=== PATIENT | female | born 1990 | race Caucasian/White ===

== ENCOUNTER → 2020-05-23 10:02 | Outpatient (CLI) | payer OTHER, MEDICAID, SELFPAY ==
[2020-05-23] MEDS: COVID-19 VACC #1, MRNA(MOD) 100 MCG/0.5 ML VIAL IM (10:14)
== END ==
PROVIDERS: Visit Provider Internal Medicine
DX: Z23 Encounter for immunization (principal)
CPT/HCPCS: 0011A; 91301

== ENCOUNTER → 2020-06-20 10:02 | Outpatient (CLI) | payer OTHER, MEDICAID, SELFPAY ==
[2020-06-20] MEDS: COVID-19 VACC #2, MRNA(MOD) 100 MCG/0.5 ML VIAL IM (10:13)
== END ==
PROVIDERS: Visit Provider Internal Medicine
DX: Z23 Encounter for immunization (principal)
CPT/HCPCS: 0012A; 91301

== ENCOUNTER 2020-11-21 16:00 | Outpatient (RCR) | payer OTHER, MEDICAID, SELFPAY ==
--- NOTE | 2020-09-19 13:45 | PT.OIE ---
Current Diagnoses Hypermobility syndrome (09/19/20) Abnormal posture (09/19/20) Sprain of ligaments of lumbar spine, initial encounter (09/19/20) Past Medical History (Last Updated 07/25/20 @ 11:59 by Riki Fish PA-C) Acute low back pain Visit Care Team Role Provider Type Sindhu Gonzalez PA-C Attending Provider Non-Staff Primary Care Provider Referring Provider Specialty: Medical Address: [address] [place] [address] [address], [place], [address] Email: Physical Therapy Initial Evaluation PT-OP-A Visit Information Start: 09/19/20 08:57 Freq: Status: Active Protocol: Document 09/19/20 13:45 AW (Rec: 09/19/20 17:55 AW [email or web address]) Out-Patient Physical Therapy Visit Information Visit Information Visit Type Initial Evaluation Visit Start Time 13:00 Visit Stop Time 13:45 Total Visit Minutes 45 Visit Number 1 Number of TENANT SELECTOR Visits 0 Evaluation Information Evaluation Date 09/19/20 Precautions Precautions underlying hypermobility PT-OP-B Current Condition Start: 09/19/20 08:57 Freq: Status: Active Protocol: Document 09/19/20 13:45 AW (Rec: 09/19/20 08:58 AW [email or web address]) Current Condition History of Current Condition Onset Date chronic but worse since July 2020 Current Complaints low back pain; RLE pain History of Current Condition Pt describes chronic low grade back pain since high school. Within a year of her first spontaneous vaginal delivery, she started having strong spasms in her mid low back but they were amenable to stretching and rest. Without trauma or any known precipitating injury, pt experienced onset of acute back pain in July. She is now having a fiery stabbing sensation in her right buttock and posterolateral thigh after periods of inactivity and with changes in position. The pain turns into a strong ache in her low back after walking for a little bit.. Prior Treatments and Tests - X-ray lumbar spine at [facility] in 2018: lumbar levoscoliosis at L2 and early DDD L5-S1. Trace L5-S1 disc narrowing. - 2009 lap band. Removed April 2019. - Abdominal surgery (gastric bypass) December 2019. Future Testing and Treatments Planned None identified Developmental History Developmental History 7. 3.5, 2.5 yo at home. Treatment Goals Patient/Caregiver Goals Pt hopes to be able to manage her pain so she can do more things, walk with less of a limp, get down to floor to play with her kids, ease transitions. 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 Current Functional Impairments (Reported) Functional Limitations- ADL's Difficulty with LB dressing Functional Limitations- Work/School Limited sitting tolerance. 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 (10-15 min before she needs to shift her weight, gets up to walk hourly). Personal Factors Other Personal Factors That May Effect (-) depression Therapy/Recovery (+) strong motivation PT-OP-C Subjective Start: 09/19/20 08:57 Freq: Status: Active Protocol: Document 09/19/20 13:45 AW (Rec: 09/19/20 17:55 AW [email or web address]) Patient Questionnaires Oswestry Low Back Index Oswestry Score 40 Oswestry Impairment 40 to 59% Impaired (Score 40- 59) OP-PT Pain Assessment Pain Assessment Grid Paper Pain Assessment Grid Completed Yes: Scanned to EMR PT-OP-D Balance Start: 09/19/20 08:57 Freq: Status: Active Protocol: Document 09/19/20 13:45 AW (Rec: 09/19/20 17:59 AW [email or web address]) OP-PT Balance Assessment Sitting Balance Static Sitting Balance Ability Normal Dynamic Sitting Balance Ability Normal Standing Balance Static Standing Balance Ability Good Dynamic Standing Balance Ability Good Balance Tests Single Limb Standing Single Limb- Right 15 seconds but with instability Single Limb- Left 15 seconds - stable compared with right Frankel Fall Scale Copyright Permission PT-OP-F Manual Assessment Start: 09/19/20 08:57 Freq: Status: Active Protocol: Document 09/19/20 13:45 AW (Rec: 09/19/20 17:59 AW [email or web address]) Manual Assessments Soft Tissue Assessment Soft Tissue Mobility Assessment Moderately dense deep external rotators/glutes right side Joint Mobility Assessment Joint Mobility Assessment Hypermobile lumbar and lower thoracic PA's. Pt states she used to be able to reach the floor with flat hands, has hypermobile joints in her hands, and used to be able to touch the ground with her nose in seated butterfly pose. PT-OP-G Mobility & Gait Start: 09/19/20 08:57 Freq: Status: Active Protocol: Document 09/19/20 13:45 AW (Rec: 09/19/20 17:59 AW [email or web address]) OP Gait Assessment Comments Gait Comments Pt ambulates with limited upper spine excursion, positive bilateral Trendelenberg sign, poor pelvic stability. PT-OP-H Neuro Start: 09/19/20 08:57 Freq: Status: Active Protocol: Document 09/19/20 13:45 AW (Rec: 09/19/20 18:02 AW [email or web address]) Sensation Evaluation Gross Sensation Gross Sensation Right LE Impaired Comments Summary Comments Globally impaired light touch sensation in RLE. No identifiable pattern. Pressure and temperature sensation are intact Deep Tendon Reflex & Clonus Assessment Deep Tendon Reflex Bilateral Achilles Deep Tendon Reflex 0 Absent Bilateral Patellar Deep Tendon Reflex 1+ Diminished PT-OP-J Posture/Palpation/Skin Start: 09/19/20 08:57 Freq: Status: Active Protocol: Document 09/19/20 13:45 AW (Rec: 09/19/20 18:02 AW [email or web address]) Posture Evaluation Position Standing L-Spine Posture Fixed Scoliosis on (L),Shifted Right Shoulder Posture (L) Rounded,(R) Rounded Pelvis Posture Anteriorly Tilted Weight Distribution Decreased Wt.Bear on (R) Knee Posture (L) Genu Recurvatum,(R) Genu Recurvatum PT-OP-K Range of Motion Start: 09/19/20 08:57 Freq: Status: Active Protocol: Document 09/19/20 13:45 AW (Rec: 09/19/20 18:12 AW [email or web address]) Lumbar Spine Range of Motion Lumbar Spine Active Testing Position Standing Flexion 15 Extension 5 Comments Pt is able to flex to 15 degrees without pain and to 25 degrees with pain. Extension is severely limited. Sidebending bilaterally she is able to reach fingertips to knee joint but with pain on the right side. Rotation is WNL and pain free. Hip Goniometric Range of Motion Hip bilateral Hip ROM WFL Yes Testing Position Supine Hip ROM Limitations Hip ROM Limitations Soft Tissue Tightness,Pain Comments Flexion in supine is limited by habitus. R internal rotation limited by pain and soft tissue tightness. Knee Goniometric Range of Motion Knee bilateral Knee ROM WFL Yes Patient Position Supine Comments Pt has slight genu recurvatum bilaterally. PT-OP-L Special Tests Start: 09/19/20 08:57 Freq: Status: Active Protocol: Document 09/19/20 13:45 AW (Rec: 09/19/20 18:12 AW [email or web address]) Special Tests Lumbar Spine Special Tests Slump Test Results positive on right side with least provocative positioning PT-OP-M Strength Start: 09/19/20 08:57 Freq: Status: Active Protocol: Document 09/19/20 13:45 AW (Rec: 09/19/20 18:12 AW [email or web address]) Trunk Strength Trunk Manual Muscle Testing Core Stabilization Poor awareness of core stabilization. Active SLR improved with compression through pelvis Hip Strength Hip Manual Muscle Testing Left Flexion (L2) 4+ Good+ Extension (S1) 4 Good Abduction 4- Good- External Rotation 4+ Good+ Internal Rotation 4+ Good+ Right Flexion (L2) 4 Good Extension (S1) 4 Good Abduction 4- Good- External Rotation 4+ Good+ Internal Rotation 4 Good Knee Strength Knee Manual Muscle Testing bilateral Flexion (S2) 5 Normal Extension (L3) 4+ Good+ PT-OP-Q Treatments Start: 09/19/20 08:57 Freq: Status: Active Protocol: Document 09/19/20 13:45 AW (Rec: 09/19/20 18:13 AW [email or web address]) Therapeutic Exercises Supine Exercises TrA awareness Comments cued JASMIN; HEP sciatic nerve glide Supine Exercise Name sciatic nerve glide Side right Comments with active ankle pump; HEP piriformis stretch Supine Exercise Name piriformis stretch Side right Reps/Minutes 30 SH x 4 Comments HEP PT-OP-T Assessment and Plan Start: 09/19/20 08:57 Freq: Status: Active Protocol: Document 09/19/20 13:45 AW (Rec: 09/20/20 09:00 AW [email or web address]) Physical Therapy Assessment Rehab Potential Rehabilitation Potential Good Evaluation Complexity Number of Personal Factors/Comorbidities 1-2 Number of Body Systems Impaired 1-2 Clinical Presentation at Evaluation Stable Impairments Impairments Activity Tolerance,Balance, Functional Activities, Functional Mobility,Gait,Pain, Posture,ROM,Sensation,Soft Tissue Mobility,Strength Other Concerns Barriers to Rehabilitation - depression Goals Three Impairment LESTER Label Operator Goal (LTG) Pt will improve LESTER score from 40 to 20% or less disability for improved daily function LTG Duration 10 weeks - 11/27/20 Two Impairment lumbar ROM Short Term Goal (STG) Pt will improve active lumbar flexion from 15 degrees to 30 degrees without increase in baseline pain. STG Duration 4 weeks - 09/16/20 Label Operator Goal (LTG) Pt will improve active lumbar flexion from 15 degrees to 50 degrees without increase in baseline pain for improved ability to participate in play activities with her children. LTG Duration 10 weeks - 11/27/20 One Impairment lacks HEP Short Term Goal (STG) Pt will be educated in implications of posture for pain management STG Duration 4 weeks - 09/16/20 Mcfp Goal (LTG) Pt will be independent with HEP for support of therapy services provided in clinic LTG Duration 10 weeks - 11/27/20 Assessment Summary Assessment Nuha is a 30 yo woman seen in outpatient physical therapy with complaints of right lower extremity pain and low back pain. She reports history of chronic low back pain but her leg pain is new since July. Underlying hypomobility is likely predisposing. Pt identifies no precipitating injury. She presents with bilateral lower extremity weakness, postural abnormalities including exaggerated anterior pelvic tilt, and generalized hypermobility which are perpetuating her problems. Pt is expected to benefit from skilled physical therapy directed at correcting these impairments for improved lumbar stability with the goal of normalizing her gait pattern and improving her daily function. Physical Therapy Plan Frequency and Duration Frequency of Treatment 1-2x/week Duration of Treatment 10 weeks Plan of Care Start Date 09/19/20 Plan of Care End Date 11/27/20 Therapeutic Interventions Therapeutic Interventions Balance Training,Gait Training ,Home Exercise Program,Joint Mobilizations,Manual Therapy, Neuromuscular Re-education, Patient/Caregiver Education, Self-Care/Home Management, Sensory Integration,Soft Tissue Mobilization,Taping, Therapeutic Activities, Therapeutic Exercises Modalities Cold Pack/Ice Massage,Electric Stimulation,Hot Packs Next Visit Focus/Plan Next Note Type Treatment Note Next Visit Plan review initial HEP; initiate core stab
--- NOTE | 2020-09-19 13:45 | PT.OPPOC ---
Physical, Occupational & Speech Therapy At [facility] Current Diagnoses Hypermobility syndrome (09/19/20) Abnormal posture (09/19/20) Sprain of ligaments of lumbar spine, initial encounter (09/19/20) Visit Care Team Role Provider Type Sindhu Gonzalez PA-C Attending Provider Non-Staff Primary Care Provider Referring Provider Specialty: Medical Address: [address] [place] [address] [address], [place], [address] Email: Plan Of Care PT-OP-T Assessment and Plan Start: 09/19/20 08:57 Freq: Status: Active Protocol: Document 09/19/20 13:45 AW (Rec: 09/20/20 09:00 AW [email or web address]) Physical Therapy Assessment Rehab Potential Rehabilitation Potential Good Evaluation Complexity Number of Personal Factors/Comorbidities 1-2 Number of Body Systems Impaired 1-2 Clinical Presentation at Evaluation Stable Impairments Impairments Activity Tolerance,Balance, Functional Activities, Functional Mobility,Gait,Pain, Posture,ROM,Sensation,Soft Tissue Mobility,Strength Other Concerns Barriers to Rehabilitation - depression Goals Three Impairment LESTER Mixed Livestock Farmer Goal (LTG) Pt will improve LESTER score from 40 to 20% or less disability for improved daily function LTG Duration 10 weeks - 11/27/20 Two Impairment lumbar ROM Short Term Goal (STG) Pt will improve active lumbar flexion from 15 degrees to 30 degrees without increase in baseline pain. STG Duration 4 weeks - 09/16/20 Mixed Livestock Farmer Goal (LTG) Pt will improve active lumbar flexion from 15 degrees to 50 degrees without increase in baseline pain for improved ability to participate in play activities with her children. LTG Duration 10 weeks - 11/27/20 One Impairment lacks HEP Short Term Goal (STG) Pt will be educated in implications of posture for pain management STG Duration 4 weeks - 09/16/20 Mixed Livestock Farmer Goal (LTG) Pt will be independent with HEP for support of therapy services provided in clinic LTG Duration 10 weeks - 11/27/20 Assessment Summary Assessment Nuha is a 30 yo woman seen in outpatient physical therapy with complaints of right lower extremity pain and low back pain. She reports history of chronic low back pain but her leg pain is new since July. Underlying hypomobility is likely predisposing. Pt identifies no precipitating injury. She presents with bilateral lower extremity weakness, postural abnormalities including exaggerated anterior pelvic tilt, and generalized hypermobility which are perpetuating her problems. Pt is expected to benefit from skilled physical therapy directed at correcting these impairments for improved lumbar stability with the goal of normalizing her gait pattern and improving her daily function. Physical Therapy Plan Frequency and Duration Frequency of Treatment 1-2x/week Duration of Treatment 10 weeks Plan of Care Start Date 09/19/20 Plan of Care End Date 11/27/20 Therapeutic Interventions Therapeutic Interventions Balance Training,Gait Training ,Home Exercise Program,Joint Mobilizations,Manual Therapy, Neuromuscular Re-education, Patient/Caregiver Education, Self-Care/Home Management, Sensory Integration,Soft Tissue Mobilization,Taping, Therapeutic Activities, Therapeutic Exercises Modalities Cold Pack/Ice Massage,Electric Stimulation,Hot Packs Next Visit Focus/Plan Next Note Type Treatment Note Next Visit Plan review initial HEP; initiate core stab Plan of Care Dates Plan of Care Start Date 09/19/20 Plan of Care End Date 11/27/20 Electronically Signed by: Su June PT 09/20/20 0900 Please Sign and Return: I have reviewed this Plan of Care and certify that the skilled therapy services above are required to meet the patient?s needs. Physician Signature Date Printed Name and Credentials Clinical Instructor Signature Printed Name and Credentials
--- NOTE | 2020-09-20 12:19 | PT.OTN ---
Current Diagnoses Hypermobility syndrome (09/20/20) Abnormal posture (09/20/20) Sprain of ligaments of lumbar spine, initial encounter (09/20/20) Physical Therapy Treatment Note PT-OP-A Visit Information Start: 09/19/20 08:57 Freq: Status: Active Protocol: Document 09/20/20 10:30 AW (Rec: 09/20/20 10:31 AW [id number]) Out-Patient Physical Therapy Visit Information Visit Information Visit Type Treatment Note Visit Start Time 09:50 Visit Stop Time 10:30 Total Visit Minutes 40 Visit Number 2 Number of SUBSTANCE ABUSE RN Visits 0 Precautions Precautions underlying hypermobility PT-OP-B Current Condition Start: 09/19/20 08:57 Freq: Status: Active Protocol: Document 09/19/20 13:45 AW (Rec: 09/19/20 08:58 AW [email or web address]) Current Condition History of Current Condition Onset Date chronic but worse since July 2020 Current Complaints low back pain; RLE pain History of Current Condition Pt describes chronic low grade back pain since high school. Within a year of her first spontaneous vaginal delivery, she started having strong spasms in her mid low back but they were amenable to stretching and rest. Without trauma or any known precipitating injury, pt experienced onset of acute back pain in July. She is now having a fiery stabbing sensation in her right buttock and posterolateral thigh after periods of inactivity and with changes in position. The pain turns into a strong ache in her low back after walking for a little bit.. Prior Treatments and Tests - X-ray lumbar spine at [facility] in 2018: lumbar levoscoliosis at L2 and early DDD L5-S1. Trace L5-S1 disc narrowing. - 2009 lap band. Removed April 2019. - Abdominal surgery (gastric bypass) December 2019. Future Testing and Treatments Planned None identified Developmental History Developmental History [age].5[age] 2.5 yo at home. Treatment Goals Patient/Caregiver Goals Pt hopes to be able to manage her pain so she can do more things, walk with less of a limp, get down to floor to play with her kids, ease transitions. 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 Current Functional Impairments (Reported) Functional Limitations- ADL's Difficulty with LB dressing Functional Limitations- Work/School Limited sitting tolerance. 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 (10-15 min before she needs to shift her weight, gets up to walk hourly). Personal Factors Other Personal Factors That May Effect (-) depression Therapy/Recovery (+) strong motivation PT-OP-C Subjective Start: 09/19/20 08:57 Freq: Status: Active Protocol: Document 09/20/20 10:30 AW (Rec: 09/20/20 10:31 AW [id number]) OP-PT Subjective Patient Comments Patient Comments Stretches went well at home and my leg felt better last night but I'm still really limping this morning. PT-OP-D Balance Start: 09/19/20 08:57 Freq: Status: Active Protocol: Document 09/19/20 13:45 AW (Rec: 09/19/20 17:59 AW [email or web address]) OP-PT Balance Assessment Sitting Balance Static Sitting Balance Ability Normal Dynamic Sitting Balance Ability Normal Standing Balance Static Standing Balance Ability Good Dynamic Standing Balance Ability Good Balance Tests Single Limb Standing Single Limb- Right 15 seconds but with instability Single Limb- Left 15 seconds - stable compared with right Frankel Fall Scale Copyright Permission PT-OP-F Manual Assessment Start: 09/19/20 08:57 Freq: Status: Active Protocol: Document 09/19/20 13:45 AW (Rec: 09/19/20 17:59 AW [email or web address]) Manual Assessments Soft Tissue Assessment Soft Tissue Mobility Assessment Moderately dense deep external rotators/glutes right side Joint Mobility Assessment Joint Mobility Assessment Hypermobile lumbar and lower thoracic PA's. Pt states she used to be able to reach the floor with flat hands, has hypermobile joints in her hands, and used to be able to touch the ground with her nose in seated butterfly pose. PT-OP-G Mobility & Gait Start: 09/19/20 08:57 Freq: Status: Active Protocol: Document 09/19/20 13:45 AW (Rec: 09/19/20 17:59 AW [email or web address]) OP Gait Assessment Comments Gait Comments Pt ambulates with limited upper spine excursion, positive bilateral Trendelenberg sign, poor pelvic stability. PT-OP-H Neuro Start: 09/19/20 08:57 Freq: Status: Active Protocol: Document 09/19/20 13:45 AW (Rec: 09/19/20 18:02 AW [email or web address]) Sensation Evaluation Gross Sensation Gross Sensation Right LE Impaired Comments Summary Comments Globally impaired light touch sensation in RLE. No identifiable pattern. Pressure and temperature sensation are intact Deep Tendon Reflex & Clonus Assessment Deep Tendon Reflex Bilateral Achilles Deep Tendon Reflex 0 Absent Bilateral Patellar Deep Tendon Reflex 1+ Diminished PT-OP-J Posture/Palpation/Skin Start: 09/19/20 08:57 Freq: Status: Active Protocol: Document 09/19/20 13:45 AW (Rec: 09/19/20 18:02 AW [email or web address]) Posture Evaluation Position Standing L-Spine Posture Fixed Scoliosis on (L),Shifted Right Shoulder Posture (L) Rounded,(R) Rounded Pelvis Posture Anteriorly Tilted Weight Distribution Decreased Wt.Bear on (R) Knee Posture (L) Genu Recurvatum,(R) Genu Recurvatum PT-OP-K Range of Motion Start: 09/19/20 08:57 Freq: Status: Active Protocol: Document 09/19/20 13:45 AW (Rec: 09/19/20 18:12 AW [email or web address]) Lumbar Spine Range of Motion Lumbar Spine Active Testing Position Standing Flexion 15 Extension 5 Comments Pt is able to flex to 15 degrees without pain and to 25 degrees with pain. Extension is severely limited. Sidebending bilaterally she is able to reach fingertips to knee joint but with pain on the right side. Rotation is WNL and pain free. Hip Goniometric Range of Motion Hip bilateral Hip ROM WFL Yes Testing Position Supine Hip ROM Limitations Hip ROM Limitations Soft Tissue Tightness,Pain Comments Flexion in supine is limited by habitus. R internal rotation limited by pain and soft tissue tightness. Knee Goniometric Range of Motion Knee bilateral Knee ROM WFL Yes Patient Position Supine Comments Pt has slight genu recurvatum bilaterally. PT-OP-L Special Tests Start: 09/19/20 08:57 Freq: Status: Active Protocol: Document 09/19/20 13:45 AW (Rec: 09/19/20 18:12 AW [email or web address]) Special Tests Lumbar Spine Special Tests Slump Test Results positive on right side with least provocative positioning PT-OP-M Strength Start: 09/19/20 08:57 Freq: Status: Active Protocol: Document 09/19/20 13:45 AW (Rec: 09/19/20 18:12 AW [email or web address]) Trunk Strength Trunk Manual Muscle Testing Core Stabilization Poor awareness of core stabilization. Active SLR improved with compression through pelvis Hip Strength Hip Manual Muscle Testing Left Flexion (L2) 4+ Good+ Extension (S1) 4 Good Abduction 4- Good- External Rotation 4+ Good+ Internal Rotation 4+ Good+ Right Flexion (L2) 4 Good Extension (S1) 4 Good Abduction 4- Good- External Rotation 4+ Good+ Internal Rotation 4 Good Knee Strength Knee Manual Muscle Testing bilateral Flexion (S2) 5 Normal Extension (L3) 4+ Good+ PT-OP-Q Treatments Start: 09/19/20 08:57 Freq: Status: Active Protocol: Document 09/20/20 10:30 AW (Rec: 09/20/20 10:31 AW [id number]) Therapeutic Exercises Supine Exercises TrA awareness Supine Exercise Name bkfo, single leg march, double leg march Side bilateral Comments cued JASMIN; HEP sciatic nerve glide Supine Exercise Name sciatic nerve glide Side right Comments with active ankle pump; added cervical rotation to increase tension piriformis stretch Supine Exercise Name piriformis stretch Side right Reps/Minutes 30 SH x 4 Comments HEP Sidelying Exercises clamshell Sidelying Exercise Name clamshell Side bilateral Resistance AROM Reps/Minutes 12 x 2 Comments HEP PT-OP-T Assessment and Plan Start: 09/19/20 08:57 Freq: Status: Active Protocol: Document 09/20/20 10:30 AW (Rec: 09/20/20 12:18 AW [email or web address]) Physical Therapy Assessment Goals Three Impairment LESTER Facility Maintenance Helper Goal (LTG) Pt will improve LESTER score from 40 to 20% or less disability for improved daily function LTG Duration 10 weeks - 11/27/20 Two Impairment lumbar ROM Short Term Goal (STG) Pt will improve active lumbar flexion from 15 degrees to 30 degrees without increase in baseline pain. STG Duration 4 weeks - 09/16/20 Shelter Goal (LTG) Pt will improve active lumbar flexion from 15 degrees to 50 degrees without increase in baseline pain for improved ability to participate in play activities with her children. LTG Duration 10 weeks - 11/27/20 One Impairment lacks HEP Short Term Goal (STG) Pt will be educated in implications of posture for pain management STG Duration 4 weeks - 09/16/20 Facility Maintenance Helper Goal (LTG) Pt will be independent with HEP for support of therapy services provided in clinic LTG Duration 10 weeks - 11/27/20 Assessment Summary Assessment Nuha tolerated supine core stabilzation exercises today and is demonstrating good independent performance of initial HEP. PT will continue to monitor for complications related to hypermobility. Physical Therapy Plan Frequency and Duration Frequency of Treatment 1-2x/week Duration of Treatment 10 weeks Plan of Care Start Date 09/19/20 Plan of Care End Date 11/27/20 Therapeutic Interventions Therapeutic Interventions Balance Training,Gait Training ,Home Exercise Program,Joint Mobilizations,Manual Therapy, Neuromuscular Re-education, Patient/Caregiver Education, Self-Care/Home Management, Sensory Integration,Soft Tissue Mobilization,Taping, Therapeutic Activities, Therapeutic Exercises Modalities Cold Pack/Ice Massage,Electric Stimulation,Hot Packs Next Visit Focus/Plan Next Note Type Treatment Note Next Visit Plan review and progress core stab; consider pre/gait training to promote awareness of glute facilitation
--- NOTE | 2020-09-25 16:24 | PT.OTN ---
Current Diagnoses Hypermobility syndrome (09/25/20) Abnormal posture (09/25/20) Sprain of ligaments of lumbar spine, initial encounter (09/25/20) Physical Therapy Treatment Note PT-OP-A Visit Information Start: 09/19/20 08:57 Freq: Status: Active Protocol: Document 09/25/20 16:00 AW (Rec: 09/25/20 16:24 AW [email or web address]) Out-Patient Physical Therapy Visit Information Visit Information Visit Type Treatment Note Visit Start Time 15:15 Visit Stop Time 16:00 Total Visit Minutes 45 Visit Number 3 Number of ECONOMETRICS PROFESSOR Visits 0 Evaluation Information Evaluation Date 09/19/20 Precautions Precautions underlying hypermobility PT-OP-B Current Condition Start: 09/19/20 08:57 Freq: Status: Active Protocol: Document 09/19/20 13:45 AW (Rec: 09/19/20 08:58 AW [email or web address]) Current Condition History of Current Condition Onset Date chronic but worse since July 2020 Current Complaints low back pain; RLE pain History of Current Condition Pt describes chronic low grade back pain since high school. Within a year of her first spontaneous vaginal delivery, she started having strong spasms in her mid low back but they were amenable to stretching and rest. Without trauma or any known precipitating injury, pt experienced onset of acute back pain in July. She is now having a fiery stabbing sensation in her right buttock and posterolateral thigh after periods of inactivity and with changes in position. The pain turns into a strong ache in her low back after walking for a little bit.. Prior Treatments and Tests - X-ray lumbar spine at [facility] in 2018: lumbar levoscoliosis at L2 and early DDD L5-S1. Trace L5-S1 disc narrowing. - 2009 lap band. Removed April 2019. - Abdominal surgery (gastric bypass) December 2019. Future Testing and Treatments Planned None identified Developmental History Developmental History 7. 3.5[age] 2.5 yo at home. Treatment Goals Patient/Caregiver Goals Pt hopes to be able to manage her pain so she can do more things, walk with less of a limp, get down to floor to play with her kids, ease transitions. 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 Current Functional Impairments (Reported) Functional Limitations- ADL's Difficulty with LB dressing Functional Limitations- Work/School Limited sitting tolerance. 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 (10-15 min before she needs to shift her weight, gets up to walk hourly). Personal Factors Other Personal Factors That May Effect (-) depression Therapy/Recovery (+) strong motivation PT-OP-C Subjective Start: 09/19/20 08:57 Freq: Status: Active Protocol: Document 09/25/20 16:00 AW (Rec: 09/25/20 16:24 AW [email or web address]) OP-PT Subjective Patient Comments Patient Comments Pt reports feeling better last weekend with pain improved from 08/25 to 05/26. However, yesterday, she started to feel intense aching pain and numbness in her posterior thigh and lateral leg. She had a few instances of feeling unstable and had to brace herself with her arms to maintain standing balance. She denies falling. PT-OP-D Balance Start: 09/19/20 08:57 Freq: Status: Active Protocol: Document 09/19/20 13:45 AW (Rec: 09/19/20 17:59 AW [email or web address]) OP-PT Balance Assessment Sitting Balance Static Sitting Balance Ability Normal Dynamic Sitting Balance Ability Normal Standing Balance Static Standing Balance Ability Good Dynamic Standing Balance Ability Good Balance Tests Single Limb Standing Single Limb- Right 15 seconds but with instability Single Limb- Left 15 seconds - stable compared with right Frankel Fall Scale Copyright Permission PT-OP-F Manual Assessment Start: 09/19/20 08:57 Freq: Status: Active Protocol: Document 09/19/20 13:45 AW (Rec: 09/19/20 17:59 AW [email or web address]) Manual Assessments Soft Tissue Assessment Soft Tissue Mobility Assessment Moderately dense deep external rotators/glutes right side Joint Mobility Assessment Joint Mobility Assessment Hypermobile lumbar and lower thoracic PA's. Pt states she used to be able to reach the floor with flat hands, has hypermobile joints in her hands, and used to be able to touch the ground with her nose in seated butterfly pose. PT-OP-G Mobility & Gait Start: 09/19/20 08:57 Freq: Status: Active Protocol: Document 09/19/20 13:45 AW (Rec: 09/19/20 17:59 AW [email or web address]) OP Gait Assessment Comments Gait Comments Pt ambulates with limited upper spine excursion, positive bilateral Trendelenberg sign, poor pelvic stability. PT-OP-H Neuro Start: 09/19/20 08:57 Freq: Status: Active Protocol: Document 09/19/20 13:45 AW (Rec: 09/19/20 18:02 AW [email or web address]) Sensation Evaluation Gross Sensation Gross Sensation Right LE Impaired Comments Summary Comments Globally impaired light touch sensation in RLE. No identifiable pattern. Pressure and temperature sensation are intact Deep Tendon Reflex & Clonus Assessment Deep Tendon Reflex Bilateral Achilles Deep Tendon Reflex 0 Absent Bilateral Patellar Deep Tendon Reflex 1+ Diminished PT-OP-J Posture/Palpation/Skin Start: 09/19/20 08:57 Freq: Status: Active Protocol: Document 09/19/20 13:45 AW (Rec: 09/19/20 18:02 AW [email or web address]) Posture Evaluation Position Standing L-Spine Posture Fixed Scoliosis on (L),Shifted Right Shoulder Posture (L) Rounded,(R) Rounded Pelvis Posture Anteriorly Tilted Weight Distribution Decreased Wt.Bear on (R) Knee Posture (L) Genu Recurvatum,(R) Genu Recurvatum PT-OP-K Range of Motion Start: 09/19/20 08:57 Freq: Status: Active Protocol: Document 09/19/20 13:45 AW (Rec: 09/19/20 18:12 AW [email or web address]) Lumbar Spine Range of Motion Lumbar Spine Active Testing Position Standing Flexion 15 Extension 5 Comments Pt is able to flex to 15 degrees without pain and to 25 degrees with pain. Extension is severely limited. Sidebending bilaterally she is able to reach fingertips to knee joint but with pain on the right side. Rotation is WNL and pain free. Hip Goniometric Range of Motion Hip bilateral Hip ROM WFL Yes Testing Position Supine Hip ROM Limitations Hip ROM Limitations Soft Tissue Tightness,Pain Comments Flexion in supine is limited by habitus. R internal rotation limited by pain and soft tissue tightness. Knee Goniometric Range of Motion Knee bilateral Knee ROM WFL Yes Patient Position Supine Comments Pt has slight genu recurvatum bilaterally. PT-OP-L Special Tests Start: 09/19/20 08:57 Freq: Status: Active Protocol: Document 09/19/20 13:45 AW (Rec: 09/19/20 18:12 AW [email or web address]) Special Tests Lumbar Spine Special Tests Slump Test Results positive on right side with least provocative positioning PT-OP-M Strength Start: 09/19/20 08:57 Freq: Status: Active Protocol: Document 09/19/20 13:45 AW (Rec: 09/19/20 18:12 AW [email or web address]) Trunk Strength Trunk Manual Muscle Testing Core Stabilization Poor awareness of core stabilization. Active SLR improved with compression through pelvis Hip Strength Hip Manual Muscle Testing Left Flexion (L2) 4+ Good+ Extension (S1) 4 Good Abduction 4- Good- External Rotation 4+ Good+ Internal Rotation 4+ Good+ Right Flexion (L2) 4 Good Extension (S1) 4 Good Abduction 4- Good- External Rotation 4+ Good+ Internal Rotation 4 Good Knee Strength Knee Manual Muscle Testing bilateral Flexion (S2) 5 Normal Extension (L3) 4+ Good+ PT-OP-Q Treatments Start: 09/19/20 08:57 Freq: Status: Active Protocol: Document 09/25/20 16:00 AW (Rec: 09/25/20 16:24 AW [email or web address]) Therapeutic Exercises Supine Exercises LTR Supine Exercise Name LTR double KTC Supine Exercise Name double KTC Sidelying Exercises SL facet gap Sidelying Exercise Name SL facet gap Resistance R leg fwd off table, R arm reached back Comments position of comfort for HEP Sitting Exercises PPT Sitting Exercise Name pelvic tilt - anterior and posterior Reps/Minutes x5 Comments cued pt to find pelvic neutral in sitting fwd flexion stretch Comments produces post thigh/lateral leg pain; dc'ed Gait Training Gait Activity 1 Description glute facilitation level surface Surface carpet, tile Distance/Duration 8 min Treatment Focus glute facilitation to improve opp LE swing phase Comments glute facilitation to improve opp LE swing phase, normalize stance time Manual Therapy Treatment Soft Tissue Mobilization lumbar paraspinals, glutes Body Location lumbar paraspinals, glutes Mobilization Type Rolling,Strumming,Sustained Pressure Intensity/Depth Moderate Body Position Sidelying Comments tone in upper lumbar reduced after manual Joint Mobilizations lumbar facets Joint lumbar facets Direction gap Body Position Sidelying Reps/Duration 1 min oscillation x 5 Comments grade II and III Manual Traction Lumbar Body Position Hooklying Reps/Duration 1 min x 5 Comments with strap Self-Care/Home Management Treatment Education Patient Education Body Mechanics,Home Exercise Program,Posture PT-OP-T Assessment and Plan Start: 09/19/20 08:57 Freq: Status: Active Protocol: Document 09/25/20 16:00 AW (Rec: 08/10/21 16:24 AW [email or web address]) Physical Therapy Assessment Goals Four Impairment RLE stability Short Term Goal (STG) Pt will improve right single leg stance to 15 seconds with good stability. STG Duration 4 weeks - 09/16/20 Tip Inserter Goal (LTG) Pt will improve right single leg stance from 15 seconds to 25 seconds to demonstrate improved strength and stability LTG Duration 10 weeks - 11/27/20 Three Impairment LESTER Tip Inserter Goal (LTG) Pt will improve LESTER score from 40 to 20% or less disability for improved daily function LTG Duration 10 weeks - 11/27/20 Two Impairment lumbar ROM Short Term Goal (STG) Pt will improve active lumbar flexion from 15 degrees to 30 degrees without increase in baseline pain. STG Duration 4 weeks - 09/16/20 Tip Inserter Goal (LTG) Pt will improve active lumbar flexion from 15 degrees to 50 degrees without increase in baseline pain for improved ability to participate in play activities with her children. LTG Duration 10 weeks - 11/27/20 One Impairment lacks HEP Short Term Goal (STG) Pt will be educated in implications of posture for pain management STG Duration 4 weeks - 09/16/20 Custodial Goal (LTG) Pt will be independent with HEP for support of therapy services provided in clinic LTG Duration 10 weeks - 11/27/20 Assessment Summary Assessment Nuha arrived with acute back pain exacerbation and reports of RLE radiating pain. Treatment focused on manual therapy for lumber spine, gentle ther ex for lumbar flexion and rotation mobility. Pt was encouraged to call her PCP for potential additional imaging if symptoms not improving within one week. Physical Therapy Plan Frequency and Duration Frequency of Treatment 1-2x/week Duration of Treatment 10 weeks Plan of Care Start Date 09/19/20 Plan of Care End Date 11/27/20 Therapeutic Interventions Therapeutic Interventions Balance Training,Gait Training ,Home Exercise Program,Joint Mobilizations,Manual Therapy, Neuromuscular Re-education, Patient/Caregiver Education, Self-Care/Home Management, Sensory Integration,Soft Tissue Mobilization,Taping, Therapeutic Activities, Therapeutic Exercises Modalities Cold Pack/Ice Massage,Electric Stimulation,Hot Packs Next Visit Focus/Plan Next Note Type Treatment Note Next Visit Plan review and progress core stab; consider pre/gait training to promote awareness of glute facilitation
--- NOTE | 2020-09-27 12:18 | PT.OTN ---
Current Diagnoses Hypermobility syndrome (09/27/20) Abnormal posture (09/27/20) Sprain of ligaments of lumbar spine, initial encounter (09/27/20) Physical Therapy Treatment Note PT-OP-A Visit Information Start: 09/19/20 08:57 Freq: Status: Active Protocol: Document 09/27/20 12:02 AW (Rec: 09/27/20 12:06 AW [id number]) Out-Patient Physical Therapy Visit Information Visit Information Visit Type Treatment Note Visit Start Time 11:15 Visit Stop Time 12:02 Total Visit Minutes 47 Visit Number 4 Number of TRAILER STEERER Visits 0 Evaluation Information Evaluation Date 09/19/20 Precautions Precautions underlying hypermobility PT-OP-B Current Condition Start: 09/19/20 08:57 Freq: Status: Active Protocol: Document 09/19/20 13:45 AW (Rec: 09/19/20 08:58 AW [email or web address]) Current Condition History of Current Condition Onset Date chronic but worse since July 2020 Current Complaints low back pain; RLE pain History of Current Condition Pt describes chronic low grade back pain since high school. Within a year of her first spontaneous vaginal delivery, she started having strong spasms in her mid low back but they were amenable to stretching and rest. Without trauma or any known precipitating injury, pt experienced onset of acute back pain in July. She is now having a fiery stabbing sensation in her right buttock and posterolateral thigh after periods of inactivity and with changes in position. The pain turns into a strong ache in her low back after walking for a little bit.. Prior Treatments and Tests - X-ray lumbar spine at [facility] in 2018: lumbar levoscoliosis at L2 and early DDD L5-S1. Trace L5-S1 disc narrowing. - 2009 lap band. Removed April 2019. - Abdominal surgery (gastric bypass) December 2019. Future Testing and Treatments Planned None identified Developmental History Developmental History 7. 3.5[age] 2.5 yo at home. Treatment Goals Patient/Caregiver Goals Pt hopes to be able to manage her pain so she can do more things, walk with less of a limp, get down to floor to play with her kids, ease transitions. 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 Current Functional Impairments (Reported) Functional Limitations- ADL's Difficulty with LB dressing Functional Limitations- Work/School Limited sitting tolerance. 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 (10-15 min before she needs to shift her weight, gets up to walk hourly). Personal Factors Other Personal Factors That May Effect (-) depression Therapy/Recovery (+) strong motivation PT-OP-C Subjective Start: 09/19/20 08:57 Freq: Status: Active Protocol: Document 09/27/20 12:02 AW (Rec: 09/27/20 12:06 AW [id number]) OP-PT Subjective Patient Comments Patient Comments Pt reports buoyancy in bathtub helps with RLE pain. Sitting and standing increase the numbness PT-OP-D Balance Start: 09/19/20 08:57 Freq: Status: Active Protocol: Document 09/19/20 13:45 AW (Rec: 09/19/20 17:59 AW [email or web address]) OP-PT Balance Assessment Sitting Balance Static Sitting Balance Ability Normal Dynamic Sitting Balance Ability Normal Standing Balance Static Standing Balance Ability Good Dynamic Standing Balance Ability Good Balance Tests Single Limb Standing Single Limb- Right 15 seconds but with instability Single Limb- Left 15 seconds - stable compared with right Frankel Fall Scale Copyright Permission PT-OP-F Manual Assessment Start: 09/19/20 08:57 Freq: Status: Active Protocol: Document 09/19/20 13:45 AW (Rec: 09/19/20 17:59 AW [email or web address]) Manual Assessments Soft Tissue Assessment Soft Tissue Mobility Assessment Moderately dense deep external rotators/glutes right side Joint Mobility Assessment Joint Mobility Assessment Hypermobile lumbar and lower thoracic PA's. Pt states she used to be able to reach the floor with flat hands, has hypermobile joints in her hands, and used to be able to touch the ground with her nose in seated butterfly pose. PT-OP-G Mobility & Gait Start: 09/19/20 08:57 Freq: Status: Active Protocol: Document 09/19/20 13:45 AW (Rec: 09/19/20 17:59 AW [email or web address]) OP Gait Assessment Comments Gait Comments Pt ambulates with limited upper spine excursion, positive bilateral Trendelenberg sign, poor pelvic stability. PT-OP-H Neuro Start: 09/19/20 08:57 Freq: Status: Active Protocol: Document 09/19/20 13:45 AW (Rec: 09/19/20 18:02 AW [email or web address]) Sensation Evaluation Gross Sensation Gross Sensation Right LE Impaired Comments Summary Comments Globally impaired light touch sensation in RLE. No identifiable pattern. Pressure and temperature sensation are intact Deep Tendon Reflex & Clonus Assessment Deep Tendon Reflex Bilateral Achilles Deep Tendon Reflex 0 Absent Bilateral Patellar Deep Tendon Reflex 1+ Diminished PT-OP-J Posture/Palpation/Skin Start: 09/19/20 08:57 Freq: Status: Active Protocol: Document 09/19/20 13:45 AW (Rec: 09/19/20 18:02 AW [email or web address]) Posture Evaluation Position Standing L-Spine Posture Fixed Scoliosis on (L),Shifted Right Shoulder Posture (L) Rounded,(R) Rounded Pelvis Posture Anteriorly Tilted Weight Distribution Decreased Wt.Bear on (R) Knee Posture (L) Genu Recurvatum,(R) Genu Recurvatum PT-OP-K Range of Motion Start: 09/19/20 08:57 Freq: Status: Active Protocol: Document 09/19/20 13:45 AW (Rec: 09/19/20 18:12 AW [email or web address]) Lumbar Spine Range of Motion Lumbar Spine Active Testing Position Standing Flexion 15 Extension 5 Comments Pt is able to flex to 15 degrees without pain and to 25 degrees with pain. Extension is severely limited. Sidebending bilaterally she is able to reach fingertips to knee joint but with pain on the right side. Rotation is WNL and pain free. Hip Goniometric Range of Motion Hip bilateral Hip ROM WFL Yes Testing Position Supine Hip ROM Limitations Hip ROM Limitations Soft Tissue Tightness,Pain Comments Flexion in supine is limited by habitus. R internal rotation limited by pain and soft tissue tightness. Knee Goniometric Range of Motion Knee bilateral Knee ROM WFL Yes Patient Position Supine Comments Pt has slight genu recurvatum bilaterally. PT-OP-L Special Tests Start: 09/19/20 08:57 Freq: Status: Active Protocol: Document 09/19/20 13:45 AW (Rec: 09/19/20 18:12 AW [email or web address]) Special Tests Lumbar Spine Special Tests Slump Test Results positive on right side with least provocative positioning PT-OP-M Strength Start: 09/19/20 08:57 Freq: Status: Active Protocol: Document 09/19/20 13:45 AW (Rec: 09/19/20 18:12 AW [email or web address]) Trunk Strength Trunk Manual Muscle Testing Core Stabilization Poor awareness of core stabilization. Active SLR improved with compression through pelvis Hip Strength Hip Manual Muscle Testing Left Flexion (L2) 4+ Good+ Extension (S1) 4 Good Abduction 4- Good- External Rotation 4+ Good+ Internal Rotation 4+ Good+ Right Flexion (L2) 4 Good Extension (S1) 4 Good Abduction 4- Good- External Rotation 4+ Good+ Internal Rotation 4 Good Knee Strength Knee Manual Muscle Testing bilateral Flexion (S2) 5 Normal Extension (L3) 4+ Good+ PT-OP-Q Treatments Start: 09/19/20 08:57 Freq: Status: Active Protocol: Document 09/27/20 12:02 AW (Rec: 09/27/20 12:06 AW [id number]) Gym Equipment Therapeutic Ball pelvic tilt Exercise Details avoid anterior Body Position Sitting Reps/Duration 2 min Comments posterior and lateral; anterior increases burning and numbness RLE Therapeutic Exercises Supine Exercises bridge Supine Exercise Name bridge with TB Side bilateral Reps/Minutes 10 SH x 6 Comments pt reports RLE feels weak, shaky LTR Supine Exercise Name LTR double KTC Supine Exercise Name double KTC sciatic nerve glide Supine Exercise Name sciatic nerve glide Side right Comments with active ankle pump; added cervical rotation to increase tension piriformis stretch Supine Exercise Name piriformis stretch Side right Reps/Minutes 30 SH x 4 Comments HEP Sidelying Exercises SL facet gap Sidelying Exercise Name SL facet gap Resistance R leg fwd off table, R arm reached back Comments position of comfort for HEP Sitting Exercises PPT Sitting Exercise Name pelvic tilt - anterior and posterior Reps/Minutes x5 Comments cued pt to find pelvic neutral in sitting Manual Therapy Treatment Soft Tissue Mobilization lumbar paraspinals, glutes Body Location lumbar paraspinals, glutes Mobilization Type Rolling,Strumming,Sustained Pressure Intensity/Depth Moderate Body Position Sidelying Comments tone in ERs reduced after manual Joint Mobilizations lumbar facets Joint lumbar facets Direction gap Body Position Sidelying Reps/Duration 1 min oscillation x 5 Comments grade II and III Manual Traction Lumbar Body Position Hooklying Reps/Duration 1 min x 5 Comments with strap PT-OP-T Assessment and Plan Start: 09/19/20 08:57 Freq: Status: Active Protocol: Document 09/27/20 12:02 AW (Rec: 09/27/20 12:18 AW [email or web address]) Physical Therapy Assessment Goals Four Impairment RLE stability Short Term Goal (STG) Pt will improve right single leg stance to 15 seconds with good stability. STG Duration 4 weeks - 10/17/20 Inventory Assistant Goal (LTG) Pt will improve right single leg stance from 15 seconds to 25 seconds to demonstrate improved strength and stability LTG Duration 10 weeks - 11/27/20 Three Impairment LESTER Usp Goal (LTG) Pt will improve LESTER score from 40 to 20% or less disability for improved daily function LTG Duration 10 weeks - 11/27/20 Two Impairment lumbar ROM Short Term Goal (STG) Pt will improve active lumbar flexion from 15 degrees to 30 degrees without increase in baseline pain. STG Duration 4 weeks - 10/17/20 Inventory Assistant Goal (LTG) Pt will improve active lumbar flexion from 15 degrees to 50 degrees without increase in baseline pain for improved ability to participate in play activities with her children. LTG Duration 10 weeks - 11/27/20 One Impairment lacks HEP Short Term Goal (STG) Pt will be educated in implications of posture for pain management STG Duration 4 weeks - 10/17/20 Inventory Assistant Goal (LTG) Pt will be independent with HEP for support of therapy services provided in clinic LTG Duration 10 weeks - 11/27/20 Assessment Summary Assessment Nuha continues to experience acute RLE radiating pain which occasionally leaves her feeling weak. Gait is extremely antalgic and slow. She has been able to assume positions of comfort at home when experiencing RLE pain with some relief. Will follow up with pt next week but radiating pain has not been responsive to PT. Pt may need to consider further imaging. Physical Therapy Plan Frequency and Duration Frequency of Treatment 1-2x/week Duration of Treatment 10 weeks Plan of Care Start Date 09/19/20 Plan of Care End Date 11/27/20 Therapeutic Interventions Therapeutic Interventions Balance Training,Gait Training ,Home Exercise Program,Joint Mobilizations,Manual Therapy, Neuromuscular Re-education, Patient/Caregiver Education, Self-Care/Home Management, Sensory Integration,Soft Tissue Mobilization,Taping, Therapeutic Activities, Therapeutic Exercises Modalities Cold Pack/Ice Massage,Electric Stimulation,Hot Packs Next Visit Focus/Plan Next Note Type Treatment Note Next Visit Plan review and progress core stab; manual therapy
--- NOTE | 2020-10-02 17:01 | PT.OTN ---
Current Diagnoses Hypermobility syndrome (10/02/20) Abnormal posture (10/02/20) Sprain of ligaments of lumbar spine, initial encounter (10/02/20) Physical Therapy Treatment Note PT-OP-A Visit Information Start: 09/19/20 08:57 Freq: Status: Active Protocol: Document 10/02/20 15:15 AW (Rec: 10/02/20 15:15 AW [id number]) Out-Patient Physical Therapy Visit Information Visit Information Visit Type Treatment Note Visit Start Time 14:30 Visit Stop Time 15:15 Total Visit Minutes 45 Visit Number 5 Number of HOUSEHOLD CHORES Visits 0 Evaluation Information Evaluation Date 09/19/20 Precautions Precautions underlying hypermobility PT-OP-B Current Condition Start: 09/19/20 08:57 Freq: Status: Active Protocol: Document 09/19/20 13:45 AW (Rec: 09/19/20 08:58 AW [email or web address]) Current Condition History of Current Condition Onset Date chronic but worse since July 2020 Current Complaints low back pain; RLE pain History of Current Condition Pt describes chronic low grade back pain since high school. Within a year of her first spontaneous vaginal delivery, she started having strong spasms in her mid low back but they were amenable to stretching and rest. Without trauma or any known precipitating injury, pt experienced onset of acute back pain in July. She is now having a fiery stabbing sensation in her right buttock and posterolateral thigh after periods of inactivity and with changes in position. The pain turns into a strong ache in her low back after walking for a little bit.. Prior Treatments and Tests - X-ray lumbar spine at [facility] in 2018: lumbar levoscoliosis at L2 and early DDD L5-S1. Trace L5-S1 disc narrowing. - 2009 lap band. Removed April 2019. - Abdominal surgery (gastric bypass) December 2019. Future Testing and Treatments Planned None identified Developmental History Developmental History 7. 3.5[age] 2.5 yo at home. Treatment Goals Patient/Caregiver Goals Pt hopes to be able to manage her pain so she can do more things, walk with less of a limp, get down to floor to play with her kids, ease transitions. 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 Current Functional Impairments (Reported) Functional Limitations- ADL's Difficulty with LB dressing Functional Limitations- Work/School Limited sitting tolerance. 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 (10-15 min before she needs to shift her weight, gets up to walk hourly). Personal Factors Other Personal Factors That May Effect (-) depression Therapy/Recovery (+) strong motivation PT-OP-C Subjective Start: 09/19/20 08:57 Freq: Status: Active Protocol: Document 10/02/20 15:15 AW (Rec: 10/02/20 15:15 AW [id number]) OP-PT Subjective Patient Comments Patient Comments Pt is now having symptoms in both legs. When she walks >10 minutes, she has bilateral shooting pain in her legs. She notices shuffling feet after 30 minutes on her feet. Also reporting tingling sensation in bilateral arms. Not having incontinence. but is having urinary urgency and unable to completely void. Occasional saddle anesthesia more present posteriorly. Pt has an appointment with her PCP tomorrow. Patient Reported Progress Worse PT-OP-D Balance Start: 09/19/20 08:57 Freq: Status: Active Protocol: Document 09/19/20 13:45 AW (Rec: 09/19/20 17:59 AW [email or web address]) OP-PT Balance Assessment Sitting Balance Static Sitting Balance Ability Normal Dynamic Sitting Balance Ability Normal Standing Balance Static Standing Balance Ability Good Dynamic Standing Balance Ability Good Balance Tests Single Limb Standing Single Limb- Right 15 seconds but with instability Single Limb- Left 15 seconds - stable compared with right Frankel Fall Scale Copyright Permission PT-OP-F Manual Assessment Start: 09/19/20 08:57 Freq: Status: Active Protocol: Document 09/19/20 13:45 AW (Rec: 09/19/20 17:59 AW [email or web address]) Manual Assessments Soft Tissue Assessment Soft Tissue Mobility Assessment Moderately dense deep external rotators/glutes right side Joint Mobility Assessment Joint Mobility Assessment Hypermobile lumbar and lower thoracic PA's. Pt states she used to be able to reach the floor with flat hands, has hypermobile joints in her hands, and used to be able to touch the ground with her nose in seated butterfly pose. PT-OP-G Mobility & Gait Start: 09/19/20 08:57 Freq: Status: Active Protocol: Document 09/19/20 13:45 AW (Rec: 09/19/20 17:59 AW [email or web address]) OP Gait Assessment Comments Gait Comments Pt ambulates with limited upper spine excursion, positive bilateral Trendelenberg sign, poor pelvic stability. PT-OP-H Neuro Start: 09/19/20 08:57 Freq: Status: Active Protocol: Document 09/19/20 13:45 AW (Rec: 09/19/20 18:02 AW [email or web address]) Sensation Evaluation Gross Sensation Gross Sensation Right LE Impaired Comments Summary Comments Globally impaired light touch sensation in RLE. No identifiable pattern. Pressure and temperature sensation are intact Deep Tendon Reflex & Clonus Assessment Deep Tendon Reflex Bilateral Achilles Deep Tendon Reflex 0 Absent Bilateral Patellar Deep Tendon Reflex 1+ Diminished PT-OP-J Posture/Palpation/Skin Start: 09/19/20 08:57 Freq: Status: Active Protocol: Document 09/19/20 13:45 AW (Rec: 09/19/20 18:02 AW [email or web address]) Posture Evaluation Position Standing L-Spine Posture Fixed Scoliosis on (L),Shifted Right Shoulder Posture (L) Rounded,(R) Rounded Pelvis Posture Anteriorly Tilted Weight Distribution Decreased Wt.Bear on (R) Knee Posture (L) Genu Recurvatum,(R) Genu Recurvatum PT-OP-K Range of Motion Start: 09/19/20 08:57 Freq: Status: Active Protocol: Document 09/19/20 13:45 AW (Rec: 09/19/20 18:12 AW [email or web address]) Lumbar Spine Range of Motion Lumbar Spine Active Testing Position Standing Flexion 15 Extension 5 Comments Pt is able to flex to 15 degrees without pain and to 25 degrees with pain. Extension is severely limited. Sidebending bilaterally she is able to reach fingertips to knee joint but with pain on the right side. Rotation is WNL and pain free. Hip Goniometric Range of Motion Hip bilateral Hip ROM WFL Yes Testing Position Supine Hip ROM Limitations Hip ROM Limitations Soft Tissue Tightness,Pain Comments Flexion in supine is limited by habitus. R internal rotation limited by pain and soft tissue tightness. Knee Goniometric Range of Motion Knee bilateral Knee ROM WFL Yes Patient Position Supine Comments Pt has slight genu recurvatum bilaterally. PT-OP-L Special Tests Start: 09/19/20 08:57 Freq: Status: Active Protocol: Document 09/19/20 13:45 AW (Rec: 09/19/20 18:12 AW [email or web address]) Special Tests Lumbar Spine Special Tests Slump Test Results positive on right side with least provocative positioning PT-OP-M Strength Start: 09/19/20 08:57 Freq: Status: Active Protocol: Document 09/19/20 13:45 AW (Rec: 09/19/20 18:12 AW [email or web address]) Trunk Strength Trunk Manual Muscle Testing Core Stabilization Poor awareness of core stabilization. Active SLR improved with compression through pelvis Hip Strength Hip Manual Muscle Testing Left Flexion (L2) 4+ Good+ Extension (S1) 4 Good Abduction 4- Good- External Rotation 4+ Good+ Internal Rotation 4+ Good+ Right Flexion (L2) 4 Good Extension (S1) 4 Good Abduction 4- Good- External Rotation 4+ Good+ Internal Rotation 4 Good Knee Strength Knee Manual Muscle Testing bilateral Flexion (S2) 5 Normal Extension (L3) 4+ Good+ PT-OP-Q Treatments Start: 09/19/20 08:57 Freq: Status: Active Protocol: Document 10/02/20 15:15 AW (Rec: 10/02/20 15:15 AW [id number]) Therapeutic Exercises Supine Exercises LTR Supine Exercise Name LTR double KTC Supine Exercise Name double KTC sciatic nerve glide Supine Exercise Name sciatic nerve glide Side right Comments with active ankle pump; added cervical rotation to increase tension piriformis stretch Supine Exercise Name piriformis stretch Side right Reps/Minutes 30 SH x 4 Comments with manual overpressure Sidelying Exercises SL facet gap Sidelying Exercise Name SL facet gap Resistance R leg fwd off table, R arm reached back Comments position of comfort for HEP Manual Therapy Treatment Soft Tissue Mobilization lumbar paraspinals, glutes Body Location lumbar paraspinals, glutes Mobilization Type Rolling,Strumming,Sustained Pressure Intensity/Depth Moderate Body Position Sidelying Joint Mobilizations lumbar facets Joint lumbar facets Direction gap Body Position Sidelying Reps/Duration 1 min oscillation x 5 Comments grade II and III Manual Traction Lumbar Body Position Hooklying Reps/Duration 1 min x 5 Comments with strap PT-OP-T Assessment and Plan Start: 09/19/20 08:57 Freq: Status: Active Protocol: Document 10/02/20 15:15 AW (Rec: 10/02/20 17:01 AW [email or web address]) Physical Therapy Assessment Goals Four Impairment RLE stability Short Term Goal (STG) Pt will improve right single leg stance to 15 seconds with good stability. STG Duration 4 weeks - 10/17/20 Plate Stacker Goal (LTG) Pt will improve right single leg stance from 15 seconds to 25 seconds to demonstrate improved strength and stability LTG Duration 10 weeks - 11/27/20 Three Impairment LESTER Long-Term Goal (LTG) Pt will improve LESTER score from 40 to 20% or less disability for improved daily function LTG Duration 10 weeks - 11/27/20 Two Impairment lumbar ROM Short Term Goal (STG) Pt will improve active lumbar flexion from 15 degrees to 30 degrees without increase in baseline pain. STG Duration 4 weeks - 10/17/20 Long-Term Goal (LTG) Pt will improve active lumbar flexion from 15 degrees to 50 degrees without increase in baseline pain for improved ability to participate in play activities with her children. LTG Duration 10 weeks - 11/27/20 One Impairment lacks HEP Short Term Goal (STG) Pt will be educated in implications of posture for pain management STG Duration 4 weeks - 10/17/20 Long-Term Goal (LTG) Pt will be independent with HEP for support of therapy services provided in clinic LTG Duration 10 weeks - 11/27/20 Assessment Summary Assessment Nuha is now experiencing radiating pain bilaterally with standing >10 minutes. She reports occasional saddle anesthesia and urinary urgency , retention. Pt has an appointment with PCP tomorrow to discuss these symptoms. Physical Therapy Plan Frequency and Duration Frequency of Treatment 1-2x/week Duration of Treatment 10 weeks Plan of Care Start Date 09/19/20 Plan of Care End Date 11/27/20 Therapeutic Interventions Therapeutic Interventions Balance Training,Gait Training ,Home Exercise Program,Joint Mobilizations,Manual Therapy, Neuromuscular Re-education, Patient/Caregiver Education, Self-Care/Home Management, Sensory Integration,Soft Tissue Mobilization,Taping, Therapeutic Activities, Therapeutic Exercises Modalities Cold Pack/Ice Massage,Electric Stimulation,Hot Packs Next Visit Focus/Plan Next Note Type Treatment Note Next Visit Plan follow up on PCP visit; schedule further appointments?
--- NOTE | 2020-10-04 15:14 | PT.OTN ---
Current Diagnoses Hypermobility syndrome (10/04/20) Abnormal posture (10/04/20) Sprain of ligaments of lumbar spine, initial encounter (10/04/20) Physical Therapy Treatment Note PT-OP-A Visit Information Start: 09/19/20 08:57 Freq: Status: Active Protocol: Document 10/04/20 15:00 AW (Rec: 10/04/20 15:10 AW [id number]) Out-Patient Physical Therapy Visit Information Visit Information Visit Type Treatment Note Visit Start Time 14:30 Visit Stop Time 15:00 Total Visit Minutes 30 Visit Number 6 Number of MOISTURE MACHINE TENDER Visits 0 Evaluation Information Evaluation Date 09/19/20 Precautions Precautions underlying hypermobility PT-OP-B Current Condition Start: 09/19/20 08:57 Freq: Status: Active Protocol: Document 09/19/20 13:45 AW (Rec: 09/19/20 08:58 AW [email or web address]) Current Condition History of Current Condition Onset Date chronic but worse since July 2020 Current Complaints low back pain; RLE pain History of Current Condition Pt describes chronic low grade back pain since high school. Within a year of her first spontaneous vaginal delivery, she started having strong spasms in her mid low back but they were amenable to stretching and rest. Without trauma or any known precipitating injury, pt experienced onset of acute back pain in July. She is now having a fiery stabbing sensation in her right buttock and posterolateral thigh after periods of inactivity and with changes in position. The pain turns into a strong ache in her low back after walking for a little bit.. Prior Treatments and Tests - X-ray lumbar spine at [facility] in 2018: lumbar levoscoliosis at L2 and early DDD L5-S1. Trace L5-S1 disc narrowing. - 2009 lap band. Removed April 2019. - Abdominal surgery (gastric bypass) December 2019. Future Testing and Treatments Planned None identified Developmental History Developmental History [age].5[age] 2.5 yo at home. Treatment Goals Patient/Caregiver Goals Pt hopes to be able to manage her pain so she can do more things, walk with less of a limp, get down to floor to play with her kids, ease transitions. Prior Functional Status Baseline Function- ADL's Independent Baseline Function- Mobility Independent Baseline Function- Work/School Able to complete daily household and childcare attendant activities. Current Functional Impairments (Reported) Functional Limitations- ADL's Difficulty with LB dressing Functional Limitations- Work/School Limited sitting tolerance. 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 (10-15 min before she needs to shift her weight, gets up to walk hourly). Personal Factors Other Personal Factors That May Effect (-) depression Therapy/Recovery (+) strong motivation PT-OP-C Subjective Start: 09/19/20 08:57 Freq: Status: Active Protocol: Document 10/04/20 15:00 AW (Rec: 10/04/20 15:10 AW [id number]) OP-PT Subjective Patient Comments Patient Comments Currently having tingling in inner thighs bilaterally. Saw doctor yesterday who ordered lumbar MRI. Pt is waiting on insurance to authorize. Patient Reported Progress Same PT-OP-D Balance Start: 09/19/20 08:57 Freq: Status: Active Protocol: Document 09/19/20 13:45 AW (Rec: 09/19/20 17:59 AW [email or web address]) OP-PT Balance Assessment Sitting Balance Static Sitting Balance Ability Normal Dynamic Sitting Balance Ability Normal Standing Balance Static Standing Balance Ability Good Dynamic Standing Balance Ability Good Balance Tests Single Limb Standing Single Limb- Right 15 seconds but with instability Single Limb- Left 15 seconds - stable compared with right Frankel Fall Scale Copyright Permission PT-OP-F Manual Assessment Start: 09/19/20 08:57 Freq: Status: Active Protocol: Document 09/19/20 13:45 AW (Rec: 09/19/20 17:59 AW [email or web address]) Manual Assessments Soft Tissue Assessment Soft Tissue Mobility Assessment Moderately dense deep external rotators/glutes right side Joint Mobility Assessment Joint Mobility Assessment Hypermobile lumbar and lower thoracic PA's. Pt states she used to be able to reach the floor with flat hands, has hypermobile joints in her hands, and used to be able to touch the ground with her nose in seated butterfly pose. PT-OP-G Mobility & Gait Start: 09/19/20 08:57 Freq: Status: Active Protocol: Document 09/19/20 13:45 AW (Rec: 09/19/20 17:59 AW [email or web address]) OP Gait Assessment Comments Gait Comments Pt ambulates with limited upper spine excursion, positive bilateral Trendelenberg sign, poor pelvic stability. PT-OP-H Neuro Start: 09/19/20 08:57 Freq: Status: Active Protocol: Document 09/19/20 13:45 AW (Rec: 09/19/20 18:02 AW [email or web address]) Sensation Evaluation Gross Sensation Gross Sensation Right LE Impaired Comments Summary Comments Globally impaired light touch sensation in RLE. No identifiable pattern. Pressure and temperature sensation are intact Deep Tendon Reflex & Clonus Assessment Deep Tendon Reflex Bilateral Achilles Deep Tendon Reflex 0 Absent Bilateral Patellar Deep Tendon Reflex 1+ Diminished PT-OP-J Posture/Palpation/Skin Start: 09/19/20 08:57 Freq: Status: Active Protocol: Document 09/19/20 13:45 AW (Rec: 09/19/20 18:02 AW [email or web address]) Posture Evaluation Position Standing L-Spine Posture Fixed Scoliosis on (L),Shifted Right Shoulder Posture (L) Rounded,(R) Rounded Pelvis Posture Anteriorly Tilted Weight Distribution Decreased Wt.Bear on (R) Knee Posture (L) Genu Recurvatum,(R) Genu Recurvatum PT-OP-K Range of Motion Start: 09/19/20 08:57 Freq: Status: Active Protocol: Document 09/19/20 13:45 AW (Rec: 09/19/20 18:12 AW [email or web address]) Lumbar Spine Range of Motion Lumbar Spine Active Testing Position Standing Flexion 15 Extension 5 Comments Pt is able to flex to 15 degrees without pain and to 25 degrees with pain. Extension is severely limited. Sidebending bilaterally she is able to reach fingertips to knee joint but with pain on the right side. Rotation is WNL and pain free. Hip Goniometric Range of Motion Hip bilateral Hip ROM WFL Yes Testing Position Supine Hip ROM Limitations Hip ROM Limitations Soft Tissue Tightness,Pain Comments Flexion in supine is limited by habitus. R internal rotation limited by pain and soft tissue tightness. Knee Goniometric Range of Motion Knee bilateral Knee ROM WFL Yes Patient Position Supine Comments Pt has slight genu recurvatum bilaterally. PT-OP-L Special Tests Start: 09/19/20 08:57 Freq: Status: Active Protocol: Document 09/19/20 13:45 AW (Rec: 09/19/20 18:12 AW [email or web address]) Special Tests Lumbar Spine Special Tests Slump Test Results positive on right side with least provocative positioning PT-OP-M Strength Start: 09/19/20 08:57 Freq: Status: Active Protocol: Document 09/19/20 13:45 AW (Rec: 08/04/21 18:12 AW [email or web address]) Trunk Strength Trunk Manual Muscle Testing Core Stabilization Poor awareness of core stabilization. Active SLR improved with compression through pelvis Hip Strength Hip Manual Muscle Testing Left Flexion (L2) 4+ Good+ Extension (S1) 4 Good Abduction 4- Good- External Rotation 4+ Good+ Internal Rotation 4+ Good+ Right Flexion (L2) 4 Good Extension (S1) 4 Good Abduction 4- Good- External Rotation 4+ Good+ Internal Rotation 4 Good Knee Strength Knee Manual Muscle Testing bilateral Flexion (S2) 5 Normal Extension (L3) 4+ Good+ PT-OP-Q Treatments Start: 09/19/20 08:57 Freq: Status: Active Protocol: Document 10/04/20 15:00 AW (Rec: 10/04/20 15:10 AW [id number]) Therapeutic Exercises Supine Exercises LTR Supine Exercise Name LTR double KTC Supine Exercise Name double KTC sciatic nerve glide Supine Exercise Name sciatic nerve glide Side right Comments with active ankle pump; added cervical rotation to increase tension piriformis stretch Supine Exercise Name piriformis stretch Side right Reps/Minutes 30 SH x 4 Comments with manual overpressure Sidelying Exercises SL facet gap Sidelying Exercise Name SL facet gap Resistance R leg fwd off table, R arm reached back Comments position of comfort for HEP Manual Therapy Treatment Soft Tissue Mobilization lumbar paraspinals, glutes Body Location lumbar paraspinals, glutes Mobilization Type Rolling,Strumming,Sustained Pressure Intensity/Depth Moderate Body Position Sidelying Comments strong spasm at right glute med, paraspinals Joint Mobilizations lumbar facets Joint lumbar facets Direction gap Body Position Sidelying Reps/Duration 1 min oscillation x 5 Comments grade II and III Manual Traction Lumbar Body Position Hooklying Reps/Duration 1 min x 5 Comments with strap PT-OP-T Assessment and Plan Start: 09/19/20 08:57 Freq: Status: Active Protocol: Document 10/04/20 14:00 AW (Rec: 10/04/20 15:14 AW [id number]) Physical Therapy Assessment Goals Four Impairment RLE stability Short Term Goal (STG) Pt will improve right single leg stance to 15 seconds with good stability. STG Duration 4 weeks - 10/17/20 Game Room Attendant Goal (LTG) Pt will improve right single leg stance from 15 seconds to 25 seconds to demonstrate improved strength and stability LTG Duration 10 weeks - 11/27/20 Three Impairment LESTER Game Room Attendant Goal (LTG) Pt will improve LESTER score from 40 to 20% or less disability for improved daily function LTG Duration 10 weeks - 11/27/20 Two Impairment lumbar ROM Short Term Goal (STG) Pt will improve active lumbar flexion from 15 degrees to 30 degrees without increase in baseline pain. STG Duration 4 weeks - 10/17/20 Game Room Attendant Goal (LTG) Pt will improve active lumbar flexion from 15 degrees to 50 degrees without increase in baseline pain for improved ability to participate in play activities with her children. LTG Duration 10 weeks - 11/27/20 One Impairment lacks HEP Short Term Goal (STG) Pt will be educated in implications of posture for pain management STG Duration 4 weeks - 10/17/20 Game Room Attendant Goal (LTG) Pt will be independent with HEP for support of therapy services provided in clinic LTG Duration 10 weeks - 11/27/20 Assessment Summary Assessment Nuha continues to experience bilateral leg pain worse with sitting, standing, changing position. Her symptoms are highly irritable and her gait presents with increasing antalgia. Pt is not responding to PT treatment. She is referred back to her primary care for MRI and possible referral to ortho. PT to hold pt chart open one month for follow up. Physical Therapy Plan Frequency and Duration Frequency of Treatment 1-2x/week Duration of Treatment 10 weeks Plan of Care Start Date 09/19/20 Plan of Care End Date 11/27/20 Therapeutic Interventions Therapeutic Interventions Balance Training,Gait Training ,Home Exercise Program,Joint Mobilizations,Manual Therapy, Neuromuscular Re-education, Patient/Caregiver Education, Self-Care/Home Management, Sensory Integration,Soft Tissue Mobilization,Taping, Therapeutic Activities, Therapeutic Exercises Modalities Cold Pack/Ice Massage,Electric Stimulation,Hot Packs Hold Physical Therapy Reason For Hold Not responding. Hold one month and follow up. Next Visit Focus/Plan Next Note Type Treatment Note Next Visit Plan re-assess
--- NOTE | 2020-10-25 17:01 | PT.OTN ---
Current Diagnoses Hypermobility syndrome (10/25/20) Abnormal posture (10/25/20) Sprain of ligaments of lumbar spine, initial encounter (10/25/20) Physical Therapy Treatment Note PT-OP-A Visit Information Start: 09/19/20 08:57 Freq: Status: Active Protocol: Document 10/25/20 16:48 AW (Rec: 10/25/20 16:59 AW [id number]) Out-Patient Physical Therapy Visit Information Visit Information Visit Type Treatment Note Visit Start Time 16:15 Visit Stop Time 16:48 Total Visit Minutes 33 Visit Number 7 Number of CARBIDE TOOL MAKER Visits 0 Evaluation Information Evaluation Date 09/19/20 Precautions Precautions underlying hypermobility PT-OP-B Current Condition Start: 09/19/20 08:57 Freq: Status: Active Protocol: Document 09/19/20 13:45 AW (Rec: 09/19/20 08:58 AW [email or web address]) Current Condition History of Current Condition Onset Date chronic but worse since July 2020 Current Complaints low back pain; RLE pain History of Current Condition Pt describes chronic low grade back pain since high school. Within a year of her first spontaneous vaginal delivery, she started having strong spasms in her mid low back but they were amenable to stretching and rest. Without trauma or any known precipitating injury, pt experienced onset of acute back pain in July. She is now having a fiery stabbing sensation in her right buttock and posterolateral thigh after periods of inactivity and with changes in position. The pain turns into a strong ache in her low back after walking for a little bit.. Prior Treatments and Tests - X-ray lumbar spine at [facility] in 2018: lumbar levoscoliosis at L2 and early DDD L5-S1. Trace L5-S1 disc narrowing. - 2009 lap band. Removed April 2019. - Abdominal surgery (gastric bypass) December 2019. Future Testing and Treatments Planned None identified Developmental History Developmental History 7. 3.5, 2.5 yo at home. Treatment Goals Patient/Caregiver Goals Pt hopes to be able to manage her pain so she can do more things, walk with less of a limp, get down to floor to play with her kids, ease transitions. Prior Functional Status Baseline Function- ADL's Independent Baseline Function- Mobility Independent Baseline Function- Work/School Able to complete daily household and children's entertainer activities. Current Functional Impairments (Reported) Functional Limitations- ADL's Difficulty with LB dressing Functional Limitations- Work/School Limited sitting tolerance. 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 (10-15 min before she needs to shift her weight, gets up to walk hourly). Personal Factors Other Personal Factors That May Effect (-) depression Therapy/Recovery (+) strong motivation PT-OP-C Subjective Start: 09/19/20 08:57 Freq: Status: Active Protocol: Document 10/25/20 16:48 AW (Rec: 10/25/20 16:59 AW [id number]) OP-PT Subjective Patient Comments Patient Comments Primary care ordered lumbar spine MRI today to rule out herniated disc. She is waiting on insurance authorization. She reports fading while walking, has fallen twice, can 't walk more than 10 minutes without legs feeling like jelly. Using a cane for longer distances. Now taking gabapentin. Patient Reported Progress Same PT-OP-D Balance Start: 09/19/20 08:57 Freq: Status: Active Protocol: Document 09/19/20 13:45 AW (Rec: 09/19/20 17:59 AW [email or web address]) OP-PT Balance Assessment Sitting Balance Static Sitting Balance Ability Normal Dynamic Sitting Balance Ability Normal Standing Balance Static Standing Balance Ability Good Dynamic Standing Balance Ability Good Balance Tests Single Limb Standing Single Limb- Right 15 seconds but with instability Single Limb- Left 15 seconds - stable compared with right Frankel Fall Scale Copyright Permission PT-OP-F Manual Assessment Start: 09/19/20 08:57 Freq: Status: Active Protocol: Document 09/19/20 13:45 AW (Rec: 09/19/20 17:59 AW [email or web address]) Manual Assessments Soft Tissue Assessment Soft Tissue Mobility Assessment Moderately dense deep external rotators/glutes right side Joint Mobility Assessment Joint Mobility Assessment Hypermobile lumbar and lower thoracic PA's. Pt states she used to be able to reach the floor with flat hands, has hypermobile joints in her hands, and used to be able to touch the ground with her nose in seated butterfly pose. PT-OP-G Mobility & Gait Start: 09/19/20 08:57 Freq: Status: Active Protocol: Document 09/19/20 13:45 AW (Rec: 09/19/20 17:59 AW [email or web address]) OP Gait Assessment Comments Gait Comments Pt ambulates with limited upper spine excursion, positive bilateral Trendelenberg sign, poor pelvic stability. PT-OP-H Neuro Start: 09/19/20 08:57 Freq: Status: Active Protocol: Document 09/19/20 13:45 AW (Rec: 09/19/20 18:02 AW [email or web address]) Sensation Evaluation Gross Sensation Gross Sensation Right LE Impaired Comments Summary Comments Globally impaired light touch sensation in RLE. No identifiable pattern. Pressure and temperature sensation are intact Deep Tendon Reflex & Clonus Assessment Deep Tendon Reflex Bilateral Achilles Deep Tendon Reflex 0 Absent Bilateral Patellar Deep Tendon Reflex 1+ Diminished PT-OP-J Posture/Palpation/Skin Start: 09/19/20 08:57 Freq: Status: Active Protocol: Document 09/19/20 13:45 AW (Rec: 09/19/20 18:02 AW [email or web address]) Posture Evaluation Position Standing L-Spine Posture Fixed Scoliosis on (L),Shifted Right Shoulder Posture (L) Rounded,(R) Rounded Pelvis Posture Anteriorly Tilted Weight Distribution Decreased Wt.Bear on (R) Knee Posture (L) Genu Recurvatum,(R) Genu Recurvatum PT-OP-K Range of Motion Start: 09/19/20 08:57 Freq: Status: Active Protocol: Document 09/19/20 13:45 AW (Rec: 09/19/20 18:12 AW [email or web address]) Lumbar Spine Range of Motion Lumbar Spine Active Testing Position Standing Flexion 15 Extension 5 Comments Pt is able to flex to 15 degrees without pain and to 25 degrees with pain. Extension is severely limited. Sidebending bilaterally she is able to reach fingertips to knee joint but with pain on the right side. Rotation is WNL and pain free. Hip Goniometric Range of Motion Hip bilateral Hip ROM WFL Yes Testing Position Supine Hip ROM Limitations Hip ROM Limitations Soft Tissue Tightness,Pain Comments Flexion in supine is limited by habitus. R internal rotation limited by pain and soft tissue tightness. Knee Goniometric Range of Motion Knee bilateral Knee ROM WFL Yes Patient Position Supine Comments Pt has slight genu recurvatum bilaterally. PT-OP-L Special Tests Start: 09/19/20 08:57 Freq: Status: Active Protocol: Document 09/19/20 13:45 AW (Rec: 09/19/20 18:12 AW [email or web address]) Special Tests Lumbar Spine Special Tests Slump Test Results positive on right side with least provocative positioning PT-OP-M Strength Start: 09/19/20 08:57 Freq: Status: Active Protocol: Document 09/19/20 13:45 AW (Rec: 09/19/20 18:12 AW [email or web address]) Trunk Strength Trunk Manual Muscle Testing Core Stabilization Poor awareness of core stabilization. Active SLR improved with compression through pelvis Hip Strength Hip Manual Muscle Testing Left Flexion (L2) 4+ Good+ Extension (S1) 4 Good Abduction 4- Good- External Rotation 4+ Good+ Internal Rotation 4+ Good+ Right Flexion (L2) 4 Good Extension (S1) 4 Good Abduction 4- Good- External Rotation 4+ Good+ Internal Rotation 4 Good Knee Strength Knee Manual Muscle Testing bilateral Flexion (S2) 5 Normal Extension (L3) 4+ Good+ PT-OP-Q Treatments Start: 09/19/20 08:57 Freq: Status: Active Protocol: Document 10/25/20 16:48 AW (Rec: 10/25/20 16:59 AW [id number]) Therapeutic Exercises Prone Exercises prone extension Prone Exercise Name prone extension Reps/Minutes x15 Comments reproduces RLE pain from thigh to calf Standing Exercises lumbar extension Standing Exercise Name lumbar extension Reps/Minutes x20 Comments no complaints during but increased BLE nerve pain afterward Gait Training Gait Activity 1 Description assistive device training Device Used SPC Level of Assistance SBA Surface carpet, tile Distance/Duration 8 min Comments Pt initiated gait with SPC in RUE. Educated pt to switch to LUE to widen LISET. Pt responded well to cues for equal stance time. Manual Therapy Treatment Soft Tissue Mobilization lumbar paraspinals, glutes Body Location lumbar paraspinals, glutes Mobilization Type Rolling,Strumming,Sustained Pressure Intensity/Depth Moderate Body Position Prone Comments tolerated well in prone without increased pain Joint Mobilizations lumbar facets Joint lumbar facets Direction gap Body Position Sidelying Reps/Duration 1 min oscillation x 5 Comments grade II and III Manual Traction Lumbar Body Position Hooklying Reps/Duration 1 min x 5 Comments with strap PT-OP-T Assessment and Plan Start: 09/19/20 08:57 Freq: Status: Active Protocol: Document 10/25/20 16:48 AW (Rec: 10/25/20 16:59 AW [id number]) Physical Therapy Assessment Goals Four Impairment RLE stability Short Term Goal (STG) Pt will improve right single leg stance to 15 seconds with good stability. STG Duration 4 weeks - 10/17/20 Longterm Goal (LTG) Pt will improve right single leg stance from 15 seconds to 25 seconds to demonstrate improved strength and stability LTG Duration 10 weeks - 11/27/20 Three Impairment LESTER Physically Impaired Teacher Goal (LTG) Pt will improve LESTER score from 40 to 20% or less disability for improved daily function LTG Duration 10 weeks - 11/27/20 Two Impairment lumbar ROM Short Term Goal (STG) Pt will improve active lumbar flexion from 15 degrees to 30 degrees without increase in baseline pain. STG Duration 4 weeks - 10/17/20 Physically Impaired Teacher Goal (LTG) Pt will improve active lumbar flexion from 15 degrees to 50 degrees without increase in baseline pain for improved ability to participate in play activities with her children. LTG Duration 10 weeks - 11/27/20 One Impairment lacks HEP Short Term Goal (STG) Pt will be educated in implications of posture for pain management STG Duration 4 weeks - 10/17/20 Longterm Goal (LTG) Pt will be independent with HEP for support of therapy services provided in clinic LTG Duration 10 weeks - 11/27/20 Assessment Summary Assessment Nuha has orders for lumbar MRI but is waiting for insurance authorization. She reports continued BLE weakness , deep achyness, and shooting pain. She continues to report saddle anesthesia. Her PCP is aware. Prognosis is limited at this time. Pt to reduce tx frequency to once weekly or less at this time. Physical Therapy Plan Frequency and Duration Frequency of Treatment 1-2x/week Duration of Treatment 10 weeks Plan of Care Start Date 09/19/20 Plan of Care End Date 11/27/20 Therapeutic Interventions Therapeutic Interventions Balance Training,Gait Training ,Home Exercise Program,Joint Mobilizations,Manual Therapy, Neuromuscular Re-education, Patient/Caregiver Education, Self-Care/Home Management, Sensory Integration,Soft Tissue Mobilization,Taping, Therapeutic Activities, Therapeutic Exercises Modalities Cold Pack/Ice Massage,Electric Stimulation,Hot Packs Next Visit Focus/Plan Next Note Type Treatment Note
--- NOTE | 2020-10-30 16:54 | PT.OTN ---
Current Diagnoses Hypermobility syndrome (10/30/20) Abnormal posture (10/30/20) Sprain of ligaments of lumbar spine, initial encounter (10/30/20) Physical Therapy Treatment Note PT-OP-A Visit Information Start: 09/19/20 08:57 Freq: Status: Active Protocol: Document 10/30/20 16:43 AW (Rec: 10/30/20 16:46 AW [email or web address]) Out-Patient Physical Therapy Visit Information Visit Information Visit Type Treatment Note Visit Start Time 16:02 Visit Stop Time 16:43 Total Visit Minutes 41 Visit Number 8 Number of CHILD WELFARE WORKER Visits 0 Evaluation Information Evaluation Date 09/19/20 Precautions Precautions underlying hypermobility PT-OP-B Current Condition Start: 09/19/20 08:57 Freq: Status: Active Protocol: Document 09/19/20 13:45 AW (Rec: 09/19/20 08:58 AW [email or web address]) Current Condition History of Current Condition Onset Date chronic but worse since July 2020 Current Complaints low back pain; RLE pain History of Current Condition Pt describes chronic low grade back pain since high school. Within a year of her first spontaneous vaginal delivery, she started having strong spasms in her mid low back but they were amenable to stretching and rest. Without trauma or any known precipitating injury, pt experienced onset of acute back pain in July. She is now having a fiery stabbing sensation in her right buttock and posterolateral thigh after periods of inactivity and with changes in position. The pain turns into a strong ache in her low back after walking for a little bit.. Prior Treatments and Tests - X-ray lumbar spine at [facility] in 2018: lumbar levoscoliosis at L2 and early DDD L5-S1. Trace L5-S1 disc narrowing. - 2009 lap band. Removed April 2019. - Abdominal surgery (gastric bypass) December 2019. Future Testing and Treatments Planned None identified Developmental History Developmental History 7. 3.5[age] 2.5 yo at home. Treatment Goals Patient/Caregiver Goals Pt hopes to be able to manage her pain so she can do more things, walk with less of a limp, get down to floor to play with her kids, ease transitions. 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 Current Functional Impairments (Reported) Functional Limitations- ADL's Difficulty with LB dressing Functional Limitations- Work/School Limited sitting tolerance. 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 (10-15 min before she needs to shift her weight, gets up to walk hourly). Personal Factors Other Personal Factors That May Effect (-) depression Therapy/Recovery (+) strong motivation PT-OP-C Subjective Start: 09/19/20 08:57 Freq: Status: Active Protocol: Document 10/30/20 16:43 AW (Rec: 10/30/20 16:46 AW [email or web address]) OP-PT Subjective Patient Comments Patient Comments Still waiting on insurance auth for MRI. Numbness/ tingling RLE is worsening. Pt is using SPC ~50% of the time at home and always when she leaves the house. Patient Reported Progress Worse PT-OP-D Balance Start: 09/19/20 08:57 Freq: Status: Active Protocol: Document 09/19/20 13:45 AW (Rec: 09/19/20 17:59 AW [email or web address]) OP-PT Balance Assessment Sitting Balance Static Sitting Balance Ability Normal Dynamic Sitting Balance Ability Normal Standing Balance Static Standing Balance Ability Good Dynamic Standing Balance Ability Good Balance Tests Single Limb Standing Single Limb- Right 15 seconds but with instability Single Limb- Left 15 seconds - stable compared with right Frankel Fall Scale Copyright Permission PT-OP-F Manual Assessment Start: 09/19/20 08:57 Freq: Status: Active Protocol: Document 09/19/20 13:45 AW (Rec: 09/19/20 17:59 AW [email or web address]) Manual Assessments Soft Tissue Assessment Soft Tissue Mobility Assessment Moderately dense deep external rotators/glutes right side Joint Mobility Assessment Joint Mobility Assessment Hypermobile lumbar and lower thoracic PA's. Pt states she used to be able to reach the floor with flat hands, has hypermobile joints in her hands, and used to be able to touch the ground with her nose in seated butterfly pose. PT-OP-G Mobility & Gait Start: 09/19/20 08:57 Freq: Status: Active Protocol: Document 09/19/20 13:45 AW (Rec: 09/19/20 17:59 AW [email or web address]) OP Gait Assessment Comments Gait Comments Pt ambulates with limited upper spine excursion, positive bilateral Trendelenberg sign, poor pelvic stability. PT-OP-H Neuro Start: 09/19/20 08:57 Freq: Status: Active Protocol: Document 09/19/20 13:45 AW (Rec: 09/19/20 18:02 AW [email or web address]) Sensation Evaluation Gross Sensation Gross Sensation Right LE Impaired Comments Summary Comments Globally impaired light touch sensation in RLE. No identifiable pattern. Pressure and temperature sensation are intact Deep Tendon Reflex & Clonus Assessment Deep Tendon Reflex Bilateral Achilles Deep Tendon Reflex 0 Absent Bilateral Patellar Deep Tendon Reflex 1+ Diminished PT-OP-J Posture/Palpation/Skin Start: 09/19/20 08:57 Freq: Status: Active Protocol: Document 09/19/20 13:45 AW (Rec: 09/19/20 18:02 AW [email or web address]) Posture Evaluation Position Standing L-Spine Posture Fixed Scoliosis on (L),Shifted Right Shoulder Posture (L) Rounded,(R) Rounded Pelvis Posture Anteriorly Tilted Weight Distribution Decreased Wt.Bear on (R) Knee Posture (L) Genu Recurvatum,(R) Genu Recurvatum PT-OP-K Range of Motion Start: 09/19/20 08:57 Freq: Status: Active Protocol: Document 09/19/20 13:45 AW (Rec: 09/19/20 18:12 AW [email or web address]) Lumbar Spine Range of Motion Lumbar Spine Active Testing Position Standing Flexion 15 Extension 5 Comments Pt is able to flex to 15 degrees without pain and to 25 degrees with pain. Extension is severely limited. Sidebending bilaterally she is able to reach fingertips to knee joint but with pain on the right side. Rotation is WNL and pain free. Hip Goniometric Range of Motion Hip bilateral Hip ROM WFL Yes Testing Position Supine Hip ROM Limitations Hip ROM Limitations Soft Tissue Tightness,Pain Comments Flexion in supine is limited by habitus. R internal rotation limited by pain and soft tissue tightness. Knee Goniometric Range of Motion Knee bilateral Knee ROM WFL Yes Patient Position Supine Comments Pt has slight genu recurvatum bilaterally. PT-OP-L Special Tests Start: 09/19/20 08:57 Freq: Status: Active Protocol: Document 09/19/20 13:45 AW (Rec: 09/19/20 18:12 AW [email or web address]) Special Tests Lumbar Spine Special Tests Slump Test Results positive on right side with least provocative positioning PT-OP-M Strength Start: 09/19/20 08:57 Freq: Status: Active Protocol: Document 09/19/20 13:45 AW (Rec: 09/19/20 18:12 AW [email or web address]) Trunk Strength Trunk Manual Muscle Testing Core Stabilization Poor awareness of core stabilization. Active SLR improved with compression through pelvis Hip Strength Hip Manual Muscle Testing Left Flexion (L2) 4+ Good+ Extension (S1) 4 Good Abduction 4- Good- External Rotation 4+ Good+ Internal Rotation 4+ Good+ Right Flexion (L2) 4 Good Extension (S1) 4 Good Abduction 4- Good- External Rotation 4+ Good+ Internal Rotation 4 Good Knee Strength Knee Manual Muscle Testing bilateral Flexion (S2) 5 Normal Extension (L3) 4+ Good+ PT-OP-Q Treatments Start: 09/19/20 08:57 Freq: Status: Active Protocol: Document 10/30/20 16:43 AW (Rec: 10/30/20 16:46 AW [id number]) Therapeutic Exercises Supine Exercises LTR Supine Exercise Name LTR double KTC Supine Exercise Name double KTC TrA awareness Supine Exercise Name double leg march Side bilateral Comments cued JASMIN; focus stability sciatic nerve glide Supine Exercise Name sciatic nerve glide Side right Comments pt tolerates ~30 degrees hip flexion piriformis stretch Supine Exercise Name piriformis stretch Side right Reps/Minutes 30 SH x 4 Comments with manual overpressure Sidelying Exercises SL facet gap Sidelying Exercise Name SL facet gap Resistance R leg fwd off table, R arm reached back Comments position of comfort for HEP Gait Training Gait Activity 1 Description gait with SPC Device Used SPC Level of Assistance SBA Surface carpet, tile Distance/Duration 100' x 2 Treatment Focus patterning Comments reviewed patterning for improved LISET and stability Manual Therapy Treatment Joint Mobilizations lumbar facets Joint lumbar facets Direction gap Body Position Sidelying Reps/Duration 1 min oscillation x 5 Comments grade II and III Manual Traction Lumbar Body Position Hooklying Reps/Duration 1 min x 5 Comments with strap PT-OP-T Assessment and Plan Start: 09/19/20 08:57 Freq: Status: Active Protocol: Document 10/30/20 16:43 AW (Rec: 10/30/20 16:53 AW [email or web address]) Physical Therapy Assessment Goals Four Impairment RLE stability Short Term Goal (STG) Pt will improve right single leg stance to 15 seconds with good stability. STG Duration 4 weeks - 10/17/20 Damaged Freight Inspector Goal (LTG) Pt will improve right single leg stance from 15 seconds to 25 seconds to demonstrate improved strength and stability LTG Duration 10 weeks - 11/27/20 Three Impairment LESTER Damaged Freight Inspector Goal (LTG) Pt will improve LESTER score from 40 to 20% or less disability for improved daily function LTG Duration 10 weeks - 11/27/20 Two Impairment lumbar ROM Short Term Goal (STG) Pt will improve active lumbar flexion from 15 degrees to 30 degrees without increase in baseline pain. STG Duration 4 weeks - 10/17/20 Damaged Freight Inspector Goal (LTG) Pt will improve active lumbar flexion from 15 degrees to 50 degrees without increase in baseline pain for improved ability to participate in play activities with her children. LTG Duration 10 weeks - 11/27/20 One Impairment lacks HEP Short Term Goal (STG) Pt will be educated in implications of posture for pain management STG Duration 4 weeks - 10/17/20 Damaged Freight Inspector Goal (LTG) Pt will be independent with HEP for support of therapy services provided in clinic LTG Duration 10 weeks - 11/27/20 Assessment Summary Assessment Nuha is now using SPC ~50% of the time at home and at all times outside the house. She has not fallen but admits to stumbling and catching herself on a wall a few times. Treatment focused on lumbar stabilization and manual therapy for pain management. Reviewed gait mechanics with SPC for safety and improved stability. Physical Therapy Plan Frequency and Duration Frequency of Treatment 1-2x/week Duration of Treatment 10 weeks Plan of Care Start Date 09/19/20 Plan of Care End Date 11/27/20 Therapeutic Interventions Therapeutic Interventions Balance Training,Gait Training ,Home Exercise Program,Joint Mobilizations,Manual Therapy, Neuromuscular Re-education, Patient/Caregiver Education, Self-Care/Home Management, Sensory Integration,Soft Tissue Mobilization,Taping, Therapeutic Activities, Therapeutic Exercises Modalities Cold Pack/Ice Massage,Electric Stimulation,Hot Packs Next Visit Focus/Plan Next Note Type Treatment Note
--- NOTE | 2020-11-06 17:00 | PT.OTN ---
Current Diagnoses Hypermobility syndrome (11/06/20) Abnormal posture (11/06/20) Sprain of ligaments of lumbar spine, initial encounter (11/06/20) Physical Therapy Treatment Note PT-OP-A Visit Information Start: 09/19/20 08:57 Freq: Status: Active Protocol: Document 11/06/20 16:44 AW (Rec: 11/06/20 16:54 AW [id number]) Out-Patient Physical Therapy Visit Information Visit Information Visit Type Treatment Note Visit Start Time 16:00 Visit Stop Time 16:44 Total Visit Minutes 40 Visit Number 9 Number of CONDUCTOR PULLMAN Visits 0 Evaluation Information Evaluation Date 09/19/20 Precautions Precautions underlying hypermobility PT-OP-B Current Condition Start: 09/19/20 08:57 Freq: Status: Active Protocol: Document 09/19/20 13:45 AW (Rec: 09/19/20 08:58 AW [email or web address]) Current Condition History of Current Condition Onset Date chronic but worse since July 2020 Current Complaints low back pain; RLE pain History of Current Condition Pt describes chronic low grade back pain since high school. Within a year of her first spontaneous vaginal delivery, she started having strong spasms in her mid low back but they were amenable to stretching and rest. Without trauma or any known precipitating injury, pt experienced onset of acute back pain in July. She is now having a fiery stabbing sensation in her right buttock and posterolateral thigh after periods of inactivity and with changes in position. The pain turns into a strong ache in her low back after walking for a little bit.. Prior Treatments and Tests - X-ray lumbar spine at [facility] in 2018: lumbar levoscoliosis at L2 and early DDD L5-S1. Trace L5-S1 disc narrowing. - 2009 lap band. Removed April 2019. - Abdominal surgery (gastric bypass) December 2019. Future Testing and Treatments Planned None identified Developmental History Developmental History [age].5, 2.5 yo at home. Treatment Goals Patient/Caregiver Goals Pt hopes to be able to manage her pain so she can do more things, walk with less of a limp, get down to floor to play with her kids, ease transitions. 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 Current Functional Impairments (Reported) Functional Limitations- ADL's Difficulty with LB dressing Functional Limitations- Work/School Limited sitting tolerance. 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 (10-15 min before she needs to shift her weight, gets up to walk hourly). Personal Factors Other Personal Factors That May Effect (-) depression Therapy/Recovery (+) strong motivation PT-OP-C Subjective Start: 09/19/20 08:57 Freq: Status: Active Protocol: Document 11/06/20 16:44 AW (Rec: 11/06/20 16:54 AW [id number]) OP-PT Subjective Patient Comments Patient Comments Received insurance auth for MRI. She will have lumbar MRI tomorrow. Pt reports one fall in last week and multiple near falls while using SPC. Patient Reported Progress Same PT-OP-D Balance Start: 09/19/20 08:57 Freq: Status: Active Protocol: Document 09/19/20 13:45 AW (Rec: 09/19/20 17:59 AW [email or web address]) OP-PT Balance Assessment Sitting Balance Static Sitting Balance Ability Normal Dynamic Sitting Balance Ability Normal Standing Balance Static Standing Balance Ability Good Dynamic Standing Balance Ability Good Balance Tests Single Limb Standing Single Limb- Right 15 seconds but with instability Single Limb- Left 15 seconds - stable compared with right Frankel Fall Scale Copyright Permission PT-OP-F Manual Assessment Start: 09/19/20 08:57 Freq: Status: Active Protocol: Document 09/19/20 13:45 AW (Rec: 09/19/20 17:59 AW [email or web address]) Manual Assessments Soft Tissue Assessment Soft Tissue Mobility Assessment Moderately dense deep external rotators/glutes right side Joint Mobility Assessment Joint Mobility Assessment Hypermobile lumbar and lower thoracic PA's. Pt states she used to be able to reach the floor with flat hands, has hypermobile joints in her hands, and used to be able to touch the ground with her nose in seated butterfly pose. PT-OP-G Mobility & Gait Start: 09/19/20 08:57 Freq: Status: Active Protocol: Document 09/19/20 13:45 AW (Rec: 09/19/20 17:59 AW [email or web address]) OP Gait Assessment Comments Gait Comments Pt ambulates with limited upper spine excursion, positive bilateral Trendelenberg sign, poor pelvic stability. PT-OP-H Neuro Start: 09/19/20 08:57 Freq: Status: Active Protocol: Document 09/19/20 13:45 AW (Rec: 09/19/20 18:02 AW [email or web address]) Sensation Evaluation Gross Sensation Gross Sensation Right LE Impaired Comments Summary Comments Globally impaired light touch sensation in RLE. No identifiable pattern. Pressure and temperature sensation are intact Deep Tendon Reflex & Clonus Assessment Deep Tendon Reflex Bilateral Achilles Deep Tendon Reflex 0 Absent Bilateral Patellar Deep Tendon Reflex 1+ Diminished PT-OP-J Posture/Palpation/Skin Start: 09/19/20 08:57 Freq: Status: Active Protocol: Document 09/19/20 13:45 AW (Rec: 09/19/20 18:02 AW [email or web address]) Posture Evaluation Position Standing L-Spine Posture Fixed Scoliosis on (L),Shifted Right Shoulder Posture (L) Rounded,(R) Rounded Pelvis Posture Anteriorly Tilted Weight Distribution Decreased Wt.Bear on (R) Knee Posture (L) Genu Recurvatum,(R) Genu Recurvatum PT-OP-K Range of Motion Start: 09/19/20 08:57 Freq: Status: Active Protocol: Document 09/19/20 13:45 AW (Rec: 09/19/20 18:12 AW [email or web address]) Lumbar Spine Range of Motion Lumbar Spine Active Testing Position Standing Flexion 15 Extension 5 Comments Pt is able to flex to 15 degrees without pain and to 25 degrees with pain. Extension is severely limited. Sidebending bilaterally she is able to reach fingertips to knee joint but with pain on the right side. Rotation is WNL and pain free. Hip Goniometric Range of Motion Hip bilateral Hip ROM WFL Yes Testing Position Supine Hip ROM Limitations Hip ROM Limitations Soft Tissue Tightness,Pain Comments Flexion in supine is limited by habitus. R internal rotation limited by pain and soft tissue tightness. Knee Goniometric Range of Motion Knee bilateral Knee ROM WFL Yes Patient Position Supine Comments Pt has slight genu recurvatum bilaterally. PT-OP-L Special Tests Start: 09/19/20 08:57 Freq: Status: Active Protocol: Document 09/19/20 13:45 AW (Rec: 09/19/20 18:12 AW [email or web address]) Special Tests Lumbar Spine Special Tests Slump Test Results positive on right side with least provocative positioning PT-OP-M Strength Start: 09/19/20 08:57 Freq: Status: Active Protocol: Document 09/19/20 13:45 AW (Rec: 08/04/21 18:12 AW [email or web address]) Trunk Strength Trunk Manual Muscle Testing Core Stabilization Poor awareness of core stabilization. Active SLR improved with compression through pelvis Hip Strength Hip Manual Muscle Testing Left Flexion (L2) 4+ Good+ Extension (S1) 4 Good Abduction 4- Good- External Rotation 4+ Good+ Internal Rotation 4+ Good+ Right Flexion (L2) 4 Good Extension (S1) 4 Good Abduction 4- Good- External Rotation 4+ Good+ Internal Rotation 4 Good Knee Strength Knee Manual Muscle Testing bilateral Flexion (S2) 5 Normal Extension (L3) 4+ Good+ PT-OP-Q Treatments Start: 09/19/20 08:57 Freq: Status: Active Protocol: Document 11/06/20 16:44 AW (Rec: 11/06/20 16:54 AW [id number]) Therapeutic Exercises Supine Exercises iso hip flexion Supine Exercise Name iso hip flexion Side bilateral Resistance self - manual Reps/Minutes alternating with hip adduction Comments pt c/o popping sensation in groin; intro'd pelvic alignment hip adduction squeeze Supine Exercise Name hip adduction squeeze Side bilateral Equipment Used small green ball Reps/Minutes 2x10 LTR Supine Exercise Name LTR double KTC Supine Exercise Name double KTC sciatic nerve glide Supine Exercise Name sciatic nerve glide Side right Comments pt tolerates ~30 degrees hip flexion Sidelying Exercises SL facet gap Sidelying Exercise Name SL facet gap Resistance R leg fwd off table, R arm reached back Comments position of comfort for HEP Other Exercises sit to stand Other Exercise Name sit to stand Equipment Used green chair Reps/Minutes 2 x 5 Comments first set untimed; second set timed 78 seconds (2 in 30 seconds) Gait Training Gait Activity 1 Description gait with SPC Device Used SPC Level of Assistance SBA Surface carpet, tile Distance/Duration 100' x 2 Treatment Focus stride length Comments Pt able to improve stride length but widens LISET to compensate Manual Therapy Treatment Joint Mobilizations lumbar facets Joint lumbar facets Direction gap Body Position Sidelying Reps/Duration 1 min oscillation x 5 Comments grade II and III PT-OP-T Assessment and Plan Start: 09/19/20 08:57 Freq: Status: Active Protocol: Document 11/06/20 16:44 AW (Rec: 11/06/20 17:00 AW [email or web address]) Physical Therapy Assessment Goals Five Impairment strength Car Shunter Goal (LTG) Pt will improve 5 Time Sit to Stand from 78 seconds to 30 seconds or less as a measure of improved BLE strength and endurance. Four Impairment RLE stability Short Term Goal (STG) Pt will improve right single leg stance to 15 seconds with good stability. 11/06/20 - NOT MET - continue toward goal STG Duration 4 weeks - 10/17/20 [facility] Goal (LTG) Pt will improve right single leg stance from 15 seconds to 25 seconds to demonstrate improved strength and stability LTG Duration 10 weeks - 11/27/20 Three Impairment LESTER [facility] Goal (LTG) Pt will improve LESTER score from 40 to 20% or less disability for improved daily function LTG Duration 10 weeks - 11/27/20 Two Impairment lumbar ROM Short Term Goal (STG) Pt will improve active lumbar flexion from 15 degrees to 30 degrees without increase in baseline pain. 11/06/20 PARTIALLY MET - Pt able to flex to 20+ degrees without increase in pain STG Duration 4 weeks - 10/17/20 [facility] Goal (LTG) Pt will improve active lumbar flexion from 15 degrees to 50 degrees without increase in baseline pain for improved ability to participate in play activities with her children. LTG Duration 10 weeks - 11/27/20 One Impairment lacks HEP Short Term Goal (STG) Pt will be educated in implications of posture for pain management. 11/06/20 - MET STG Duration 4 weeks - 10/17/20 [facility] Goal (LTG) Pt will be independent with HEP for support of therapy services provided in clinic LTG Duration 10 weeks - 11/27/20 Assessment Summary Assessment Nuha reports one fall in the last week while using SPC. She will have MRI tomorrow for lumbar and possibly for brain. She tolerated increased seated activity today. 5 Time Sit to Stand time of 78 seconds suggests increased falls risk and indicates poor muscular endurance. Physical Therapy Plan Frequency and Duration Frequency of Treatment 1-2x/week Duration of Treatment 10 weeks Plan of Care Start Date 09/19/20 Plan of Care End Date 11/27/20 Therapeutic Interventions Therapeutic Interventions Balance Training,Gait Training ,Home Exercise Program,Joint Mobilizations,Manual Therapy, Neuromuscular Re-education, Patient/Caregiver Education, Self-Care/Home Management, Sensory Integration,Soft Tissue Mobilization,Taping, Therapeutic Activities, Therapeutic Exercises Modalities Cold Pack/Ice Massage,Electric Stimulation,Hot Packs Next Visit Focus/Plan Next Note Type Treatment Note Next Visit Plan continue sit to stand training ; progress core stab
--- NOTE | 2020-11-21 16:52 | PT.OTN ---
Current Diagnoses Hypermobility syndrome (11/21/20) Abnormal posture (11/21/20) Sprain of ligaments of lumbar spine, initial encounter (11/21/20) Physical Therapy Treatment Note PT-OP-A Visit Information Start: 09/19/20 08:57 Freq: Status: Active Protocol: Document 11/21/20 16:40 AW (Rec: 11/21/20 16:52 AW [email or web address]) Out-Patient Physical Therapy Visit Information Visit Information Visit Type Discharge Summary Visit Start Time 16:01 Visit Stop Time 16:40 Total Visit Minutes 39 Visit Number 10 Number of HOUSE WIRER Visits 0 Evaluation Information Evaluation Date 09/19/20 Precautions Precautions underlying hypermobility PT-OP-B Current Condition Start: 09/19/20 08:57 Freq: Status: Active Protocol: Document 09/19/20 13:45 AW (Rec: 09/19/20 08:58 AW [email or web address]) Current Condition History of Current Condition Onset Date chronic but worse since July 2020 Current Complaints low back pain; RLE pain History of Current Condition Pt describes chronic low grade back pain since high school. Within a year of her first spontaneous vaginal delivery, she started having strong spasms in her mid low back but they were amenable to stretching and rest. Without trauma or any known precipitating injury, pt experienced onset of acute back pain in July. She is now having a fiery stabbing sensation in her right buttock and posterolateral thigh after periods of inactivity and with changes in position. The pain turns into a strong ache in her low back after walking for a little bit.. Prior Treatments and Tests - X-ray lumbar spine at [facility] in 2018: lumbar levoscoliosis at L2 and early DDD L5-S1. Trace L5-S1 disc narrowing. - 2009 lap band. Removed April 2019. - Abdominal surgery (gastric bypass) December 2019. Future Testing and Treatments Planned None identified Developmental History Developmental History 7. 3.5, 2.5 yo at home. Treatment Goals Patient/Caregiver Goals Pt hopes to be able to manage her pain so she can do more things, walk with less of a limp, get down to floor to play with her kids, ease transitions. Prior Functional Status Baseline Function- ADL's Independent Baseline Function- Mobility Independent Baseline Function- Work/School Able to complete daily household and child adolescent care activities. Current Functional Impairments (Reported) Functional Limitations- ADL's Difficulty with LB dressing Functional Limitations- Work/School Limited sitting tolerance. 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 (10-15 min before she needs to shift her weight, gets up to walk hourly). Personal Factors Other Personal Factors That May Effect (-) depression Therapy/Recovery (+) strong motivation PT-OP-C Subjective Start: 09/19/20 08:57 Freq: Status: Active Protocol: Document 11/21/20 16:40 AW (Rec: 11/21/20 16:52 AW [email or web address]) OP-PT Subjective Patient Comments Patient Comments Pt had lumbar MRI which revealed L5-S1 disc extrusion more prounounced on the right side. Pt has elected surgery and hopes to be scheduled in the next few weeks. Patient Reported Progress Same PT-OP-D Balance Start: 09/19/20 08:57 Freq: Status: Active Protocol: Document 09/19/20 13:45 AW (Rec: 09/19/20 17:59 AW [email or web address]) OP-PT Balance Assessment Sitting Balance Static Sitting Balance Ability Normal Dynamic Sitting Balance Ability Normal Standing Balance Static Standing Balance Ability Good Dynamic Standing Balance Ability Good Balance Tests Single Limb Standing Single Limb- Right 15 seconds but with instability Single Limb- Left 15 seconds - stable compared with right Frankel Fall Scale Copyright Permission PT-OP-F Manual Assessment Start: 09/19/20 08:57 Freq: Status: Active Protocol: Document 09/19/20 13:45 AW (Rec: 09/19/20 17:59 AW [email or web address]) Manual Assessments Soft Tissue Assessment Soft Tissue Mobility Assessment Moderately dense deep external rotators/glutes right side Joint Mobility Assessment Joint Mobility Assessment Hypermobile lumbar and lower thoracic PA's. Pt states she used to be able to reach the floor with flat hands, has hypermobile joints in her hands, and used to be able to touch the ground with her nose in seated butterfly pose. PT-OP-G Mobility & Gait Start: 09/19/20 08:57 Freq: Status: Active Protocol: Document 09/19/20 13:45 AW (Rec: 09/19/20 17:59 AW [email or web address]) OP Gait Assessment Comments Gait Comments Pt ambulates with limited upper spine excursion, positive bilateral Trendelenberg sign, poor pelvic stability. PT-OP-H Neuro Start: 09/19/20 08:57 Freq: Status: Active Protocol: Document 09/19/20 13:45 AW (Rec: 09/19/20 18:02 AW [email or web address]) Sensation Evaluation Gross Sensation Gross Sensation Right LE Impaired Comments Summary Comments Globally impaired light touch sensation in RLE. No identifiable pattern. Pressure and temperature sensation are intact Deep Tendon Reflex & Clonus Assessment Deep Tendon Reflex Bilateral Achilles Deep Tendon Reflex 0 Absent Bilateral Patellar Deep Tendon Reflex 1+ Diminished PT-OP-J Posture/Palpation/Skin Start: 09/19/20 08:57 Freq: Status: Active Protocol: Document 09/19/20 13:45 AW (Rec: 09/19/20 18:02 AW [email or web address]) Posture Evaluation Position Standing L-Spine Posture Fixed Scoliosis on (L),Shifted Right Shoulder Posture (L) Rounded,(R) Rounded Pelvis Posture Anteriorly Tilted Weight Distribution Decreased Wt.Bear on (R) Knee Posture (L) Genu Recurvatum,(R) Genu Recurvatum PT-OP-K Range of Motion Start: 09/19/20 08:57 Freq: Status: Active Protocol: Document 09/19/20 13:45 AW (Rec: 09/19/20 18:12 AW [email or web address]) Lumbar Spine Range of Motion Lumbar Spine Active Testing Position Standing Flexion 15 Extension 5 Comments Pt is able to flex to 15 degrees without pain and to 25 degrees with pain. Extension is severely limited. Sidebending bilaterally she is able to reach fingertips to knee joint but with pain on the right side. Rotation is WNL and pain free. Hip Goniometric Range of Motion Hip bilateral Hip ROM WFL Yes Testing Position Supine Hip ROM Limitations Hip ROM Limitations Soft Tissue Tightness,Pain Comments Flexion in supine is limited by habitus. R internal rotation limited by pain and soft tissue tightness. Knee Goniometric Range of Motion Knee bilateral Knee ROM WFL Yes Patient Position Supine Comments Pt has slight genu recurvatum bilaterally. PT-OP-L Special Tests Start: 09/19/20 08:57 Freq: Status: Active Protocol: Document 09/19/20 13:45 AW (Rec: 09/19/20 18:12 AW [email or web address]) Special Tests Lumbar Spine Special Tests Slump Test Results positive on right side with least provocative positioning PT-OP-M Strength Start: 09/19/20 08:57 Freq: Status: Active Protocol: Document 09/19/20 13:45 AW (Rec: 09/19/20 18:12 AW [email or web address]) Trunk Strength Trunk Manual Muscle Testing Core Stabilization Poor awareness of core stabilization. Active SLR improved with compression through pelvis Hip Strength Hip Manual Muscle Testing Left Flexion (L2) 4+ Good+ Extension (S1) 4 Good Abduction 4- Good- External Rotation 4+ Good+ Internal Rotation 4+ Good+ Right Flexion (L2) 4 Good Extension (S1) 4 Good Abduction 4- Good- External Rotation 4+ Good+ Internal Rotation 4 Good Knee Strength Knee Manual Muscle Testing bilateral Flexion (S2) 5 Normal Extension (L3) 4+ Good+ PT-OP-Q Treatments Start: 09/19/20 08:57 Freq: Status: Active Protocol: Document 11/21/20 16:40 AW (Rec: 11/21/20 16:52 AW [email or web address]) Therapeutic Exercises Supine Exercises piriformis stretch Supine Exercise Name piriformis stretch Side right Reps/Minutes 30 SH x 4 Comments with manual overpressure Prone Exercises prone extension Prone Exercise Name prone extension Reps/Minutes x15 Comments with P/A mob; no worsening symptoms Sidelying Exercises SL facet gap Sidelying Exercise Name SL facet gap Resistance R leg fwd off table, R arm reached back Comments with SL facet mob Standing Exercises lateral push Reps/Minutes x20 Comments standing against wall with hand on left hip, pushing toward right lumbar extension Standing Exercise Name lumbar extension Reps/Minutes x20 Comments no complaints during or after Other Exercises sit to stand Other Exercise Name sit to stand Equipment Used tx table Reps/Minutes 2 x 5 Comments unable to improve speed Gait Training Gait Activity stairs Description stairs with SPC Device Used SPC Level of Assistance SBA Surface 6 steps Treatment Focus patterning for stability Comments Educated pt on stair climbing technique for improved stability. Step-to pattern leading with LLE for ascent and RLE for descent. Pt was able to manage with SBA. 1 Description gait with SPC Device Used SPC Level of Assistance SBA Surface carpet, tile Distance/Duration 100' x 2 Treatment Focus stride length Comments Pt able to improve stride length but widens LISET to compensate Manual Therapy Treatment Joint Mobilizations lumbar facets Joint lumbar facets Direction gap Body Position Sidelying Reps/Duration 1 min oscillation x 5 Comments grade II and III Manual Traction Lumbar Body Position Hooklying Reps/Duration 1 min x 5 Comments with strap PT-OP-T Assessment and Plan Start: 09/19/20 08:57 Freq: Status: Active Protocol: Document 11/21/20 16:40 AW (Rec: 11/21/20 16:52 AW [email or web address]) Physical Therapy Assessment Goals Five Impairment strength Regular Senior Care Provider Goal (LTG) Pt will improve 5 Time Sit to Stand from 78 seconds to 30 seconds or less as a measure of improved BLE strength and endurance. Four Impairment RLE stability Short Term Goal (STG) Pt will improve right single leg stance to 15 seconds with good stability. 11/06/20 - NOT MET - continue toward goal STG Duration 4 weeks - 10/17/20 Usp Goal (LTG) Pt will improve right single leg stance from 15 seconds to 25 seconds to demonstrate improved strength and stability LTG Duration 10 weeks - 11/27/20 Three Impairment LESTER Usp Goal (LTG) Pt will improve LESTER score from 40 to 20% or less disability for improved daily function LTG Duration 10 weeks - 11/27/20 Two Impairment lumbar ROM Short Term Goal (STG) Pt will improve active lumbar flexion from 15 degrees to 30 degrees without increase in baseline pain. 11/06/20 PARTIALLY MET - Pt able to flex to 20+ degrees without increase in pain STG Duration 4 weeks - 10/17/20 Regular Senior Care Provider Goal (LTG) Pt will improve active lumbar flexion from 15 degrees to 50 degrees without increase in baseline pain for improved ability to participate in play activities with her children. LTG Duration 10 weeks - 11/27/20 One Impairment lacks HEP Short Term Goal (STG) Pt will be educated in implications of posture for pain management. 11/06/20 - MET STG Duration 4 weeks - 10/17/20 Usp Goal (LTG) Pt will be independent with HEP for support of therapy services provided in clinic LTG Duration 10 weeks - 11/27/20 Assessment Summary Assessment Nuha has elected discectomy and is hoping to be scheduled in the next few weeks. She agrees with discharge from current plan of care and understands she will need a new referral to return to PT after surgery. Physical Therapy Plan Frequency and Duration Frequency of Treatment discharge Discharge Physical Therapy Discharge Reasons Plateau in Progress Discharge Comments Nuha has elected discectomy and is hoping to be scheduled in the next few weeks. She agrees with discharge from current plan of care and understands she will need a new referral to return to PT after surgery.
== END 2020-12-04 10:14 ==
LOC: PHYS 16:00
PROVIDERS: PCP Physician Assistant; Referring Provider Physician Assistant; Visit Provider Physician Assistant
DX: S33.5XXA Sprain of ligaments of lumbar spine, initial encounter (principal); R29.3 Abnormal posture; M35.7 Hypermobility syndrome
CPT/HCPCS: 97110; 97116; 97140; 97162

== ENCOUNTER 2021-05-15 17:37 | Emergency (ER) | payer OTHER, MEDICAID, SELFPAY ==
[2021-05-15 17:49] VITALS: BP 112/68; PULSE 96; RESP 18; TEMP 36.7; O2SAT 100; BMI 31.9
--- NOTE | 2021-05-15 17:52 | DI.RAD.S_ITS ---
PROCEDURE: XR FINGER RT MIN 2V INDICATIONS: blunt force TECHNIQUE: AP hand, 2 views of the 1st finger(s) acquired. COMPARISON: [facility], CR, XR WRIST RT MIN 3V, 05/15/2021, 18:04. FINDINGS: Bones: No fractures or dislocations. No suspicious bony lesions. Soft tissues: No suspicious soft tissue calcifications. IMPRESSION: No fracture or dislocation. If clinical symptoms persist or clinical suspicion for pathology is high, a repeat examination in 7-10 days, or advanced imaging such as CT or MRI is suggested for further evaluation. Dictated by: Lizzette Santos M.D. on 05/15/2021 at 18:41 Approved by: Lizzette Santos M.D. on 05/15/2021 at 18:43
--- NOTE | 2021-05-15 17:52 | DI.RAD.S_ITS ---
PROCEDURE: XR WRIST RT MIN 3V INDICATIONS: blunt force TECHNIQUE: 4 views of the wrist were acquired. COMPARISON: [facility], CR, XR FINGER RT MIN 2V, 05/15/2021, 18:04. FINDINGS: Bones: There is a cortical step-off in the distal radial articular surface. No dislocations. No suspicious bony lesions. Scaphoid view: Scaphoid is intact. Soft tissues: No suspicious soft tissue calcifications. IMPRESSION: A cortical step-off in the distal radial articular surface, suspicious for fracture. If clinical symptoms persist, a repeat examination is suggested in 7-10 days. If clinically indicated, advanced imaging such as CT or MRI may be helpful. Dictated by: Lizzette Santos M.D. on 05/15/2021 at 18:37 Approved by: Lizzette Santos M.D. on 05/15/2021 at 18:41
[2021-05-15] MEDS: OXYCODONE/ACETAMINOPHEN 5/325 TABLET 1 TAB PO (18:30)
--- NOTE | 2021-05-15 19:05 | ED.GENADULT ---
HPI - General Adult General Chief complaint: Extremity Injury, Upper Stated complaint: RT HAND/WRIST INJURY Time Seen by Provider: 05/15/21 18:01 Source: patient Mode of arrival: Ambulatory History of Present Illness HPI narrative: 30-year-old woman with a history of POTS, Wilbur Danlos and gastric bypass surgery was playing with her 4-year-old son and jammed her right thumb comes in complaining of some pain pain in the thenar eminence and distal wrist pain. No fevers, cough, chills, vomiting, diarrhea. She is neurovascularly intact. Related Data Home Medications Medication Instructions Recorded Confirmed sertraline 100 mg tablet 100 mg PO DAILY 08/08/18 08/08/18 pantoprazole 40 mg tablet,delayed 40 mg PO DAILY 07/25/20 07/25/20 release Previous Rx's Medication Instructions Recorded methocarbamol 500 mg tablet 500 mg PO QID PRN #10 tab 07/25/20 oxycodone-acetaminophen 5 mg-325 1 tab PO Q6H PRN #14 tab 05/15/21 mg tablet Allergies Allergy/AdvReac Type Severity Reaction Status Date / Time latex Allergy Unknown Verified 07/25/20 11:13 nickel AdvReac Rash Verified 07/25/20 11:13 Review of Systems Review of Systems Narrative: Remainder of complete review of systems is otherwise unremarkable except for that included in the HPI. Patient History Medical History (Updated 05/15/21 @ 19:12 by Corazon Payne MD) Acute low back pain Wilbur-Danlos disease POTS (postural orthostatic tachycardia syndrome) Surgical History (Updated 05/15/21 @ 19:07 by Corazon Payne MD) Gastric bypass status for obesity Social History Smoking Status: Never smoker Smoking Status: Never smoker Substance Use Type: does not use Exam Initial Vital Signs Initial Vital Signs: Vital Signs Temperature 98.0 F 05/15/21 17:49 Pulse Rate 96 H 05/15/21 17:49 Respiratory Rate 18 05/15/21 17:49 Blood Pressure 112/68 05/15/21 17:49 Pulse Oximetry 100 05/15/21 17:49 Procedures Orthopedic Splinting/Casting Right wrist: Time of procedure: 19:00 Side: right Upper Extremity Injury Location: wrist Upper Extremity Immobilizer: sling/shoulder immobilizer and volar splint Post splinting neuro exam: intact Post splinting vascular exam: intact Placed by: Nursing Course Orders Ordered: Discontinued Medications Oxycodone/Acetaminophen (Oxycodone/Acetaminophen 5/325 Tablet) 1 tab PO NOW ONE Stop: 05/15/21 18:28 Last Admin: 05/15/21 18:30 Dose: 1 tab Documented by: BETTY Vital Signs Vital signs: Vital Signs - 8 hr 05/15/21 19:56 Temperature 98.3 F Pulse Rate 72 Respiratory Rate 18 Blood Pressure 123/78 Pulse Oximetry 97 Medical Decision Making Imaging Data wrist and finger XR: Radiologist's Impression: wrist: FINDINGS:? ? Bones:? There is a cortical step-off in the distal radial articular surface.? No dislocations.? No suspicious bony lesions.? ? Scaphoid view:? Scaphoid is intact. ? Soft tissues:? No suspicious soft tissue calcifications.? ? IMPRESSION:? A cortical step-off in the distal radial articular surface, suspicious for fracture.? If clinical symptoms persist, a repeat examination is suggested in 7-10 days.? If clinically indicated, advanced imaging such as CT or MRI may be helpful.? ? ? Dictated by: Lizzette Santos M.D. on 05/15/2021 at 18:37 ? ? Thumb FINDINGS:? ? Bones:? No fractures or dislocations.? No suspicious bony lesions.? ? Soft tissues:? No suspicious soft tissue calcifications.? ? IMPRESSION:? No fracture or dislocation.? If clinical symptoms persist or clinical suspicion for pathology is high, a repeat examination in 7-10 days, or advanced imaging such as CT or MRI is suggested for further evaluation. ? ? Dictated by: Lizzette Santos M.D. on 05/15/2021 at 18:41 ? ? MDM Narrative Medical decision making narrative: 30-year-old woman with history of Wilbur-Danlos had a impact thumb/wrist injury with her 4-year-old running into her hand. X-ray shows a cortical step-off in the distal radial articular surface that is suspicious for a fracture which fits clinically. There is no evidence of scaphoid fracture. She is placed in a a volar short-arm splint. Brief course of Percocet given for pain control with instructions follow-up with [facility] Discharge Plan Departure Patient Disposition: Home Clinical Impression: Fracture of wrist Instructions: DI for Wrist Fracture Activity Restrictions/Additional Instructions: Thank you for coming in today It looks like you may have a very tiny little fracture right in the articular surface of your wrist bone. I have placed you in a splint and you need to contact [facility] to be seen in about a week. They will repeat x-rays to see if this truly is a fracture. If so they will place you on a regular splint and help with definitive treatment. If it is not they will help you decide with the next steps are and making sure that youare not having too much discomfort. You can use for moderate pain and for severe pain you can use Percocet which has Tylenol plus oxycodone and. Please do not drive or make important decisions will using a narcotic. I also recognize that it will cause constipation so make sure drinking plenty of fluids. This prescription was electronically transmitted to [facility]. You have new symptoms worse findings please feel free to return to the ER Prescriptions: New oxycodone-acetaminophen 5-325 mg tablet 1 tab PO Q6H PRN (Reason: pain) Qty: 14 0RF No Action sertraline 100 mg tablet 100 mg PO DAILY 0RF pantoprazole 40 mg tablet,delayed release (DR/EC) 40 mg PO DAILY 0RF methocarbamol 500 mg tablet 500 mg PO QID PRN (Reason: muscle spasm) Qty: 10 0RF Referrals: Sindhu Gonzalez PA-C [Primary Care Provider] -
[2021-05-15 19:56] VITALS: BP 123/78; PULSE 72; RESP 18; TEMP 36.8; O2SAT 97
== END 2021-05-15 19:57 | disposition home or self-care (01) ==
PROVIDERS: Emergency Provider Emergency Medicine; Family Provider Physician Assistant; PCP Physician Assistant
DX: S52.571A Other intraarticular fracture of lower end of right radius, initial encounter for closed fracture (principal); W50.0XXA Accidental hit or strike by another person, initial encounter
CPT/HCPCS: 73110; 73140; 99283

== ENCOUNTER 2021-06-03 15:15 | Outpatient (RCR) | payer OTHER, MEDICAID, SELFPAY ==
--- NOTE | 2021-04-03 15:46 | PT.OIE ---
Current Diagnoses Radiculopathy, lumbar region (04/02/21) Sciatica, right side (04/02/21) Other specified postprocedural states (04/02/21) Past Medical History (Last Updated 07/25/20 @ 11:59 by Riki Fish PA-C) Acute low back pain Visit Care Team Role Provider Type Sindhu Gonzalez PA-C Family Provider Non-Staff Primary Care Provider Specialty: Medical Address: [address] [place] [address] [address], [place], [address] Email: Rosario Lin PA-C Attending Provider Non-Staff Referring Provider Specialty: Orthopedic Surgery Address: [facility] [address], [place], [address] Email: [email or web address] Physical Therapy Initial Evaluation PT-OP-A Visit Information Start: 04/02/21 17:30 Freq: Status: Active Protocol: Document 04/02/21 16:05 DCW (Rec: 04/02/21 17:34 DCW [id number]) Out-Patient Physical Therapy Visit Information Visit Information Visit Type Initial Evaluation Visit Start Time 16:05 Visit Stop Time 16:45 Total Visit Minutes 45 Visit Number 1 Number of BUNDLE HELPER Visits 0 Evaluation Information Evaluation Date 04/02/21 PT-OP-B Current Condition Start: 04/02/21 17:30 Freq: Status: Active Protocol: Document 04/02/21 16:05 DCW (Rec: 04/03/21 15:45 DCW [id number]) Current Condition History of Current Condition Onset Date 12/06/20 Current Complaints Sciatic nerve pain along right thigh History of Current Condition Pt is a 30 year old female presenting four months s/p L5- S1 discectomy. Pt had been in physical therapy previously last year, but after an MRI showed a significant disc herniation, pt opted for surgical intervention. Pt returns now following surgery on 12/06/20 with substantial improvement in mobility, pain, and range of motion, however continue to experience occasional sciatic pain from her low back down her posterior right thigh. Pt was referred by her surgeon in hopes to work on some sciatic flossing to help improve pain and break up adhesions. 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 Treatment Goals Patient/Caregiver Goals Improve sciatic nerve mobility , decrease pain PT-OP-C Subjective Start: 04/02/21 17:30 Freq: Status: Active Protocol: Document 04/02/21 16:05 DCW (Rec: 04/03/21 15:45 DCW [id number]) OP-PT Subjective Patient Comments Patient Comments I'm really happy with the improvement since surgery, there's just still this little bit of pain down my legs sometimes. Patient Reported Progress Improving Patient Questionnaires Oswestry Low Back Index Oswestry Score 20/50 = 40% Oswestry Impairment 40 to 59% Impaired (Score 40- 59) OP-PT Pain Assessment Pain Assessment Grid Paper Pain Assessment Grid Completed Yes Location Right Posterior Leg Intensity 4 Scale Used Numeric (0 - 10) Frequency Occasional PT-OP-F Manual Assessment Start: 04/02/21 17:30 Freq: Status: Active Protocol: Document 04/02/21 16:05 DCW (Rec: 04/03/21 15:45 DCW [id number]) Manual Assessments Soft Tissue Assessment Soft Tissue Mobility Assessment Pt notes some loss of light touch sensation right low back , along QL. Joint Mobility Assessment Joint Mobility Assessment Hypermobility in all joints PT-OP-K Range of Motion Start: 04/02/21 17:30 Freq: Status: Active Protocol: Document 04/02/21 16:05 DCW (Rec: 04/03/21 11:15 DCW [id number]) Lumbar Spine Range of Motion Lumbar Spine Active Comments Pt exhibits hypermobility in all areas, able to bend forward with fully extended knees and place hands flat on floor. Pt also shows lateral flexion bilaterally with hands going 5 cm past knee joint line. PT-OP-L Special Tests Start: 04/02/21 17:30 Freq: Status: Active Protocol: Document 04/02/21 16:05 DCW (Rec: 04/03/21 11:15 DCW [id number]) Special Tests Lumbar Spine Special Tests RICHARD Test Results Negative Straight Leg Raise Test Results Negative Standing Flexion Test Results Negative A-P Shearing Test Results Negative Slump Test Results Strongly positive R PT-OP-M Strength Start: 04/02/21 17:30 Freq: Status: Active Protocol: Document 04/02/21 16:05 DCW (Rec: 04/03/21 11:15 [facility] [id number]) Hip Strength Hip Manual Muscle Testing Right Flexion (L2) 4 Good Extension (S1) 4- Good- Abduction 5 Normal Adduction 5 Normal External Rotation 4+ Good+ Internal Rotation 4- Good- Left Flexion (L2) 5 Normal Extension (S1) 5 Normal Abduction 5 Normal Adduction 5 Normal External Rotation 4+ Good+ Internal Rotation 4+ Good+ Knee Strength Knee Manual Muscle Testing Right Flexion (S2) 4+ Good+ Extension (L3) 4+ Good+ Left Flexion (S2) 4+ Good+ Extension (L3) 4+ Good+ Ankle/Foot Strength Ankle and Foot Manual Muscle Testing Right Dorsiflexion (L4) 4+ Good+ Plantarflexion (S1) 4+ Good+ Left Dorsiflexion (L4) 4+ Good+ Plantarflexion (S1) 4+ Good+ PT-OP-Q Treatments Start: 04/02/21 17:30 Freq: Status: Active Protocol: Document 04/02/21 16:05 DCW (Rec: 04/02/21 17:34 [facility] [id number]) Therapeutic Exercises Supine Exercises 1 Supine Exercise Name Sciatic nerve glide Side right Comments HS stretch /c ankle pump Sitting Exercises 1 Sitting Exercise Name Sciatic nerve glides Side right Comments LAQ /c ankle pumps, add slump PT-OP-T Assessment and Plan Start: 04/02/21 17:30 Freq: Status: Active Protocol: Document 04/02/21 16:05 DCW (Rec: 04/03/21 11:10 [facility] [id number]) Physical Therapy Assessment Rehab Potential Rehabilitation Potential Excellent Evaluation Complexity Number of Personal Factors/Comorbidities 3 or More Number of Body Systems Impaired 1-2 Clinical Presentation at Evaluation Unstable Impairments Impairments Functional Activities, Functional Mobility,Pain Other Concerns Barriers to Rehabilitation Recent diagnosis of Occipital neuralgia, tentative possible diagnoses of Wilbur-Danlos type III and POTS. Goals Two Impairment Pt experiences increased posterior R thigh pain with movement Telephone Claims Representative Goal (LTG) Pt to perform 100% of daily activities without increased leg pain. LTG Duration 06/01/21 One Impairment Pt does not have an appropriate home exercise program Short Term Goal (STG) Pt to be independent and compliant with an appropriate HEP STG Duration 04/30/21 Assessment Summary Assessment Pt presents with signs and symptoms consistent with referring diagnosis. Pt is doing very well four months s/ p L5-S1 discectomy, however is still having occasional sciatic pain from low back to posterior thigh along right side. Pt showing signs of likely impingement of sciatic nerve due to scar tissue or adhesions secondary to recent surgery. PT will likely benefit from skilled physical therapy focusing on improving LE mobility, sciatic nerve flossing/nerve glides. Pt does display symptoms of hypermobility in multiple areas, and may additionally benefit from work on strengthening and stabilization of her back and core. Physical Therapy Plan Frequency and Duration Frequency of Treatment 2x/Week Duration of Treatment Two months Plan of Care Start Date 04/03/21 Plan of Care End Date 06/01/21 Therapeutic Interventions Therapeutic Interventions Aquatic Therapy,Gait Training, Home Exercise Program,Manual Therapy,Neuromuscular Re- education,Patient/Caregiver Education,Self-Care/Home Management,Soft Tissue Mobilization,Therapeutic Activities,Therapeutic Exercises Modalities Cold Pack/Ice Massage,Electric Stimulation,Hot Packs, Ultrasound Next Visit Focus/Plan Next Note Type Treatment Note Next Visit Plan Nerve glides, lumbar mobility, core/back strengthening and stability
--- NOTE | 2021-04-03 15:46 | PT.OPPOC ---
Physical, Occupational & Speech Therapy At [facility] Current Diagnoses Radiculopathy, lumbar region (04/02/21) Sciatica, right side (04/02/21) Other specified postprocedural states (04/02/21) Visit Care Team Role Provider Type Sindhu Gonzalez PA-C Family Provider Non-Staff Primary Care Provider Specialty: Medical Address: [address] [place] [address] [address], [place], [address] Email: Rosario Lin PA-C Attending Provider Non-Staff Referring Provider Specialty: Orthopedic Surgery Address: [facility] [address], [place], [address] Email: [email or web address] Plan Of Care PT-OP-T Assessment and Plan Start: 04/02/21 17:30 Freq: Status: Active Protocol: Document 04/02/21 16:05 DCW (Rec: 04/03/21 11:10 DCW [id number]) Physical Therapy Assessment Rehab Potential Rehabilitation Potential Excellent Evaluation Complexity Number of Personal Factors/Comorbidities 3 or More Number of Body Systems Impaired 1-2 Clinical Presentation at Evaluation Unstable Impairments Impairments Functional Activities, Functional Mobility,Pain Other Concerns Barriers to Rehabilitation Recent diagnosis of Occipital neuralgia, tentative possible diagnoses of Wilbur-Danlos type III and POTS. Goals Two Impairment Pt experiences increased posterior R thigh pain with movement Assistant Inventory Manager Goal (LTG) Pt to perform 100% of daily activities without increased leg pain. LTG Duration 06/01/21 One Impairment Pt does not have an appropriate home exercise program Short Term Goal (STG) Pt to be independent and compliant with an appropriate HEP STG Duration 04/30/21 Assessment Summary Assessment Pt presents with signs and symptoms consistent with referring diagnosis. Pt is doing very well four months s/ p L5-S1 discectomy, however is still having occasional sciatic pain from low back to posterior thigh along right side. Pt showing signs of likely impingement of sciatic nerve due to scar tissue or adhesions secondary to recent surgery. PT will likely benefit from skilled physical therapy focusing on improving LE mobility, sciatic nerve flossing/nerve glides. Pt does display symptoms of hypermobility in multiple areas, and may additionally benefit from work on strengthening and stabilization of her back and core. Physical Therapy Plan Frequency and Duration Frequency of Treatment 2x/Week Duration of Treatment Two months Plan of Care Start Date 04/03/21 Plan of Care End Date 06/01/21 Therapeutic Interventions Therapeutic Interventions Aquatic Therapy,Gait Training, Home Exercise Program,Manual Therapy,Neuromuscular Re- education,Patient/Caregiver Education,Self-Care/Home Management,Soft Tissue Mobilization,Therapeutic Activities,Therapeutic Exercises Modalities Cold Pack/Ice Massage,Electric Stimulation,Hot Packs, Ultrasound Next Visit Focus/Plan Next Note Type Treatment Note Next Visit Plan Nerve glides, lumbar mobility, core/back strengthening and stability Plan of Care Dates Plan of Care Start Date 04/03/21 Plan of Care End Date 06/01/21 Electronically Signed by: German Thompson, PT 04/03/21 [id number] Please Sign and Return: I have reviewed this Plan of Care and certify that the skilled therapy services above are required to meet the patient?s needs. Physician Signature Date Printed Name and Credentials Clinical Instructor Signature Printed Name and Credentials
--- NOTE | 2021-04-05 12:44 | PT.OTN ---
Current Diagnoses Radiculopathy, lumbar region (04/05/21) Sciatica, right side (04/05/21) Other specified postprocedural states (04/05/21) Physical Therapy Treatment Note PT-OP-A Visit Information Start: 04/02/21 17:30 Freq: Status: Active Protocol: Document 04/05/21 12:00 DCW (Rec: 04/05/21 12:44 DCW [id number]) Out-Patient Physical Therapy Visit Information Visit Information Visit Type Treatment Note Visit Start Time 12:00 Visit Stop Time 12:45 Total Visit Minutes 45 Visit Number 2 Number of MEN'S GARMENT FITTER Visits 0 Evaluation Information Evaluation Date 04/02/21 PT-OP-B Current Condition Start: 04/02/21 17:30 Freq: Status: Active Protocol: Document 04/02/21 16:05 DCW (Rec: 04/03/21 15:45 DCW [id number]) Current Condition History of Current Condition Onset Date 12/06/20 Current Complaints Sciatic nerve pain along right thigh History of Current Condition Pt is a 30 year old female presenting four months s/p L5- S1 discectomy. Pt had been in physical therapy previously last year, but after an MRI showed a significant disc herniation, pt opted for surgical intervention. Pt returns now following surgery on 12/06/20 with substantial improvement in mobility, pain, and range of motion, however continue to experience occasional sciatic pain from her low back down her posterior right thigh. Pt was referred by her surgeon in hopes to work on some sciatic flossing to help improve pain and break up adhesions. 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 Treatment Goals Patient/Caregiver Goals Improve sciatic nerve mobility , decrease pain PT-OP-C Subjective Start: 04/02/21 17:30 Freq: Status: Active Protocol: Document 04/05/21 12:00 DCW (Rec: 04/05/21 12:44 DCW [id number]) OP-PT Subjective Patient Comments Patient Comments Pt notes her leg was a little sore yesterday, has been compliant with HEP PT-OP-F Manual Assessment Start: 04/02/21 17:30 Freq: Status: Active Protocol: Document 04/02/21 16:05 DCW (Rec: 04/03/21 15:45 DCW [id number]) Manual Assessments Soft Tissue Assessment Soft Tissue Mobility Assessment Pt notes some loss of light touch sensation right low back , along QL. Joint Mobility Assessment Joint Mobility Assessment Hypermobility in all joints PT-OP-K Range of Motion Start: 04/02/21 17:30 Freq: Status: Active Protocol: Document 04/02/21 16:05 DCW (Rec: 04/03/21 11:15 DCW [id number]) Lumbar Spine Range of Motion Lumbar Spine Active Comments Pt exhibits hypermobility in all areas, able to bend forward with fully extended knees and place hands flat on floor. Pt also shows lateral flexion bilaterally with hands going 5 cm past knee joint line. PT-OP-L Special Tests Start: 04/02/21 17:30 Freq: Status: Active Protocol: Document 04/02/21 16:05 DCW (Rec: 04/03/21 11:15 DCW [id number]) Special Tests Lumbar Spine Special Tests RICHARD Test Results Negative Straight Leg Raise Test Results Negative Standing Flexion Test Results Negative A-P Shearing Test Results Negative Slump Test Results Strongly positive R PT-OP-M Strength Start: 04/02/21 17:30 Freq: Status: Active Protocol: Document 04/02/21 16:05 DCW (Rec: 04/03/21 11:15 DCW [id number]) Hip Strength Hip Manual Muscle Testing Right Flexion (L2) 4 Good Extension (S1) 4- Good- Abduction 5 Normal Adduction 5 Normal External Rotation 4+ Good+ Internal Rotation 4- Good- Left Flexion (L2) 5 Normal Extension (S1) 5 Normal Abduction 5 Normal Adduction 5 Normal External Rotation 4+ Good+ Internal Rotation 4+ Good+ Knee Strength Knee Manual Muscle Testing Right Flexion (S2) 4+ Good+ Extension (L3) 4+ Good+ Left Flexion (S2) 4+ Good+ Extension (L3) 4+ Good+ Ankle/Foot Strength Ankle and Foot Manual Muscle Testing Right Dorsiflexion (L4) 4+ Good+ Plantarflexion (S1) 4+ Good+ Left Dorsiflexion (L4) 4+ Good+ Plantarflexion (S1) 4+ Good+ PT-OP-Q Treatments Start: 04/02/21 17:30 Freq: Status: Active Protocol: Document 04/05/21 12:00 DCW (Rec: 04/05/21 12:44 DCW [id number]) Cardio Equipment Recumbent Elliptical (Biodex) Duration (Minutes) 4 Resistance 5 Seat Position 7 Gym Equipment Therapeutic Ball LTR Exercise Details LTR Ball Size/Color Red - 55 cm Body Position Supine Therapeutic Exercises Supine Exercises 4 Supine Exercise Name PPT/TrA SLR 3 Supine Exercise Name PPT/TrA Marching Side bilateral 2 Supine Exercise Name PPT/TrA contraction Reps/Minutes 5 hold 1 Supine Exercise Name Sciatic nerve glide Side right Comments HS stretch /c ankle pump PT-OP-T Assessment and Plan Start: 04/02/21 17:30 Freq: Status: Active Protocol: Document 04/05/21 12:00 DCW (Rec: 04/05/21 12:44 DCW [id number]) Physical Therapy Assessment Impairments Impairments Functional Activities, Functional Mobility,Pain Other Concerns Barriers to Rehabilitation Recent diagnosis of Occipital neuralgia, tentative possible diagnoses of Wilbur-Danlos type III and POTS. Goals Two Impairment Pt experiences increased posterior R thigh pain with movement Cable Maker Goal (LTG) Pt to perform 100% of daily activities without increased leg pain. LTG Duration 06/01/21 One Impairment Pt does not have an appropriate home exercise program Short Term Goal (STG) Pt to be independent and compliant with an appropriate HEP STG Duration 04/30/21 Assessment Summary Assessment Pt tolerated treatment well today, continued to focus on sciatic flossing, as well as introduction of core strengthening/stabilization exercises Physical Therapy Plan Frequency and Duration Frequency of Treatment 2x/Week Duration of Treatment Two months Plan of Care Start Date 04/03/21 Plan of Care End Date 06/01/21 Therapeutic Interventions Therapeutic Interventions Aquatic Therapy,Gait Training, Home Exercise Program,Manual Therapy,Neuromuscular Re- education,Patient/Caregiver Education,Self-Care/Home Management,Soft Tissue Mobilization,Therapeutic Activities,Therapeutic Exercises Modalities Cold Pack/Ice Massage,Electric Stimulation,Hot Packs, Ultrasound Next Visit Focus/Plan Next Note Type Treatment Note Next Visit Plan Nerve glides, lumbar mobility, core/back strengthening and stability
--- NOTE | 2021-04-10 16:45 | PT.OTN ---
Current Diagnoses Radiculopathy, lumbar region (04/10/21) Sciatica, right side (04/10/21) Other specified postprocedural states (04/10/21) Physical Therapy Treatment Note PT-OP-A Visit Information Start: 04/02/21 17:30 Freq: Status: Active Protocol: Document 04/10/21 16:00 DCW (Rec: 04/10/21 16:45 DCW [id number]) Out-Patient Physical Therapy Visit Information Visit Information Visit Type Treatment Note Visit Start Time 16:00 Visit Stop Time 16:45 Total Visit Minutes 45 Visit Number 3 Number of PATHOLOGY LABORATORY DIRECTOR Visits 0 Evaluation Information Evaluation Date 04/02/21 PT-OP-B Current Condition Start: 04/02/21 17:30 Freq: Status: Active Protocol: Document 04/02/21 16:05 DCW (Rec: 04/03/21 15:45 DCW [id number]) Current Condition History of Current Condition Onset Date 12/06/20 Current Complaints Sciatic nerve pain along right thigh History of Current Condition Pt is a 30 year old female presenting four months s/p L5- S1 discectomy. Pt had been in physical therapy previously last year, but after an MRI showed a significant disc herniation, pt opted for surgical intervention. Pt returns now following surgery on 12/06/20 with substantial improvement in mobility, pain, and range of motion, however continue to experience occasional sciatic pain from her low back down her posterior right thigh. Pt was referred by her surgeon in hopes to work on some sciatic flossing to help improve pain and break up adhesions. 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 Treatment Goals Patient/Caregiver Goals Improve sciatic nerve mobility , decrease pain PT-OP-C Subjective Start: 04/02/21 17:30 Freq: Status: Active Protocol: Document 04/10/21 16:00 DCW (Rec: 04/10/21 16:45 DCW [id number]) OP-PT Subjective Patient Comments Patient Comments Pt notes she was a little sore after her appointment, then the pain let up and she was doing pretty well, but by the following morning it had returned. Admits her low back has been in a constant, really annoying pain, probably about a 5.5/10 at this point. PT-OP-F Manual Assessment Start: 04/02/21 17:30 Freq: Status: Active Protocol: Document 04/02/21 16:05 DCW (Rec: 04/03/21 15:45 DCW [id number]) Manual Assessments Soft Tissue Assessment Soft Tissue Mobility Assessment Pt notes some loss of light touch sensation right low back , along QL. Joint Mobility Assessment Joint Mobility Assessment Hypermobility in all joints PT-OP-K Range of Motion Start: 04/02/21 17:30 Freq: Status: Active Protocol: Document 04/02/21 16:05 DCW (Rec: 04/03/21 11:15 DCW [id number]) Lumbar Spine Range of Motion Lumbar Spine Active Comments Pt exhibits hypermobility in all areas, able to bend forward with fully extended knees and place hands flat on floor. Pt also shows lateral flexion bilaterally with hands going 5 cm past knee joint line. PT-OP-L Special Tests Start: 04/02/21 17:30 Freq: Status: Active Protocol: Document 04/02/21 16:05 DCW (Rec: 04/03/21 11:15 DCW [id number]) Special Tests Lumbar Spine Special Tests RICHARD Test Results Negative Straight Leg Raise Test Results Negative Standing Flexion Test Results Negative A-P Shearing Test Results Negative Slump Test Results Strongly positive R PT-OP-M Strength Start: 04/02/21 17:30 Freq: Status: Active Protocol: Document 04/02/21 16:05 DCW (Rec: 04/03/21 11:15 DCW [id number]) Hip Strength Hip Manual Muscle Testing Right Flexion (L2) 4 Good Extension (S1) 4- Good- Abduction 5 Normal Adduction 5 Normal External Rotation 4+ Good+ Internal Rotation 4- Good- Left Flexion (L2) 5 Normal Extension (S1) 5 Normal Abduction 5 Normal Adduction 5 Normal External Rotation 4+ Good+ Internal Rotation 4+ Good+ Knee Strength Knee Manual Muscle Testing Right Flexion (S2) 4+ Good+ Extension (L3) 4+ Good+ Left Flexion (S2) 4+ Good+ Extension (L3) 4+ Good+ Ankle/Foot Strength Ankle and Foot Manual Muscle Testing Right Dorsiflexion (L4) 4+ Good+ Plantarflexion (S1) 4+ Good+ Left Dorsiflexion (L4) 4+ Good+ Plantarflexion (S1) 4+ Good+ PT-OP-Q Treatments Start: 04/02/21 17:30 Freq: Status: Active Protocol: Document 04/10/21 16:00 DCW (Rec: 04/10/21 16:45 DCW [id number]) Cardio Equipment Recumbent Elliptical (Biodex) Duration (Minutes) 4 Resistance 5 Seat Position 7 Gym Equipment Therapeutic Ball Bridging Exercise Details Bridging /c feet on ball Ball Size/Color Red - 55 cm Body Position Supine LTR Exercise Details LTR Ball Size/Color Red - 55 cm Body Position Supine pelvic tilt Exercise Details PPT, Lateral tilts Body Position Sitting Comments Green - 65 cm Therapeutic Exercises Supine Exercises 4 Supine Exercise Name PPT/TrA SLR 3 Supine Exercise Name PPT/TrA Marching Side bilateral 2 Supine Exercise Name PPT/TrA contraction Reps/Minutes 5 hold 1 Supine Exercise Name Sciatic nerve glide Side right Comments HS stretch /c ankle pump Sidelying Exercises 3 Sidelying Exercise Name Hip Abduction 2 Sidelying Exercise Name Reverse Clamshell 1 Sidelying Exercise Name Clamshell Side bilateral PT-OP-T Assessment and Plan Start: 04/02/21 17:30 Freq: Status: Active Protocol: Document 04/10/21 16:00 DCW (Rec: 04/10/21 16:45 DCW [id number]) Physical Therapy Assessment Impairments Impairments Functional Activities, Functional Mobility,Pain Other Concerns Barriers to Rehabilitation Recent diagnosis of Occipital neuralgia, tentative possible diagnoses of Wilbur-Danlos type III and POTS. Goals Two Impairment Pt experiences increased posterior R thigh pain with movement Shock Absorption Floor Layer Goal (LTG) Pt to perform 100% of daily activities without increased leg pain. LTG Duration 06/01/21 One Impairment Pt does not have an appropriate home exercise program Short Term Goal (STG) Pt to be independent and compliant with an appropriate HEP STG Duration 04/30/21 Assessment Summary Assessment Continued working on improving core and hip stabilization to improve back pain post-op, more sciatic flossing to decrease right leg pain. Physical Therapy Plan Frequency and Duration Frequency of Treatment 2x/Week Duration of Treatment Two months Plan of Care Start Date 04/03/21 Plan of Care End Date 06/01/21 Therapeutic Interventions Therapeutic Interventions Aquatic Therapy,Gait Training, Home Exercise Program,Manual Therapy,Neuromuscular Re- education,Patient/Caregiver Education,Self-Care/Home Management,Soft Tissue Mobilization,Therapeutic Activities,Therapeutic Exercises Modalities Cold Pack/Ice Massage,Electric Stimulation,Hot Packs, Ultrasound Next Visit Focus/Plan Next Note Type Treatment Note Next Visit Plan Nerve glides, lumbar mobility, core/back strengthening and stability
--- NOTE | 2021-04-12 12:43 | PT.OTN ---
Current Diagnoses Radiculopathy, lumbar region (04/12/21) Sciatica, right side (04/12/21) Other specified postprocedural states (04/12/21) Physical Therapy Treatment Note PT-OP-A Visit Information Start: 04/02/21 17:30 Freq: Status: Active Protocol: Document 04/12/21 12:00 DCW (Rec: 04/12/21 12:43 DCW [id number]) Out-Patient Physical Therapy Visit Information Visit Information Visit Type Treatment Note Visit Start Time 12:00 Visit Stop Time 12:45 Total Visit Minutes 45 Visit Number 4 Number of BROWNFIELD REDEVELOPMENT SPECIALIST Visits 0 Evaluation Information Evaluation Date 04/02/21 PT-OP-B Current Condition Start: 04/02/21 17:30 Freq: Status: Active Protocol: Document 04/02/21 16:05 DCW (Rec: 04/03/21 15:45 DCW [id number]) Current Condition History of Current Condition Onset Date 12/06/20 Current Complaints Sciatic nerve pain along right thigh History of Current Condition Pt is a 30 year old female presenting four months s/p L5- S1 discectomy. Pt had been in physical therapy previously last year, but after an MRI showed a significant disc herniation, pt opted for surgical intervention. Pt returns now following surgery on 12/06/20 with substantial improvement in mobility, pain, and range of motion, however continue to experience occasional sciatic pain from her low back down her posterior right thigh. Pt was referred by her surgeon in hopes to work on some sciatic flossing to help improve pain and break up adhesions. 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 Treatment Goals Patient/Caregiver Goals Improve sciatic nerve mobility , decrease pain PT-OP-C Subjective Start: 04/02/21 17:30 Freq: Status: Active Protocol: Document 04/12/21 12:00 DCW (Rec: 04/12/21 12:43 DCW [id number]) OP-PT Subjective Patient Comments Patient Comments Pt notes her ankles and knees have been really sore today. PT-OP-F Manual Assessment Start: 04/02/21 17:30 Freq: Status: Active Protocol: Document 04/02/21 16:05 DCW (Rec: 04/03/21 15:45 DCW [id number]) Manual Assessments Soft Tissue Assessment Soft Tissue Mobility Assessment Pt notes some loss of light touch sensation right low back , along QL. Joint Mobility Assessment Joint Mobility Assessment Hypermobility in all joints PT-OP-K Range of Motion Start: 04/02/21 17:30 Freq: Status: Active Protocol: Document 04/02/21 16:05 DCW (Rec: 04/03/21 11:15 DCW [id number]) Lumbar Spine Range of Motion Lumbar Spine Active Comments Pt exhibits hypermobility in all areas, able to bend forward with fully extended knees and place hands flat on floor. Pt also shows lateral flexion bilaterally with hands going 5 cm past knee joint line. PT-OP-L Special Tests Start: 04/02/21 17:30 Freq: Status: Active Protocol: Document 04/02/21 16:05 DCW (Rec: 04/03/21 11:15 DCW [id number]) Special Tests Lumbar Spine Special Tests RICHARD Test Results Negative Straight Leg Raise Test Results Negative Standing Flexion Test Results Negative A-P Shearing Test Results Negative Slump Test Results Strongly positive R PT-OP-M Strength Start: 04/02/21 17:30 Freq: Status: Active Protocol: Document 04/02/21 16:05 DCW (Rec: 04/03/21 11:15 DCW [id number]) Hip Strength Hip Manual Muscle Testing Right Flexion (L2) 4 Good Extension (S1) 4- Good- Abduction 5 Normal Adduction 5 Normal External Rotation 4+ Good+ Internal Rotation 4- Good- Left Flexion (L2) 5 Normal Extension (S1) 5 Normal Abduction 5 Normal Adduction 5 Normal External Rotation 4+ Good+ Internal Rotation 4+ Good+ Knee Strength Knee Manual Muscle Testing Right Flexion (S2) 4+ Good+ Extension (L3) 4+ Good+ Left Flexion (S2) 4+ Good+ Extension (L3) 4+ Good+ Ankle/Foot Strength Ankle and Foot Manual Muscle Testing Right Dorsiflexion (L4) 4+ Good+ Plantarflexion (S1) 4+ Good+ Left Dorsiflexion (L4) 4+ Good+ Plantarflexion (S1) 4+ Good+ PT-OP-Q Treatments Start: 04/02/21 17:30 Freq: Status: Active Protocol: Document 04/12/21 12:00 DCW (Rec: 04/12/21 12:43 DCW [id number]) Cardio Equipment Recumbent Elliptical (Biodex) Duration (Minutes) 4 Resistance 6 Seat Position 7 Gym Equipment Therapeutic Ball Hip/knee flexion Exercise Details Flexion vs resistance Ball Size/Color Red - 55 cm Lv 2 T-band Body Position Supine Bridging Exercise Details Bridging /c feet on ball Ball Size/Color Red - 55 cm Body Position Supine LTR Exercise Details LTR Ball Size/Color Red - 55 cm Body Position Supine Therapeutic Exercises Supine Exercises 1 Supine Exercise Name Sciatic nerve glide Side right Comments HS stretch /c ankle pump Standing Exercises 1 Standing Exercise Name Hip extension Side bilateral Resistance Red T-band loop Other Exercises 1 Other Exercise Name Resisted side-stepping Resistance Red T-band loop Manual Therapy Treatment Soft Tissue Mobilization lumbar paraspinals, glutes Body Location lumbar paraspinals, R piriformis Mobilization Type Rolling,Strumming,Sustained Pressure Intensity/Depth Moderate Body Position Sidelying PT-OP-T Assessment and Plan Start: 04/02/21 17:30 Freq: Status: Active Protocol: Document 04/12/21 12:00 DC (Rec: 04/12/21 12:43 [facility] [id number]) Physical Therapy Assessment Impairments Impairments Functional Activities, Functional Mobility,Pain Other Concerns Barriers to Rehabilitation Recent diagnosis of Occipital neuralgia, tentative possible diagnoses of Wilbur-Danlos type III and POTS. Goals Two Impairment Pt experiences increased posterior R thigh pain with movement Door To Door Sales Representative Goal (LTG) Pt to perform 100% of daily activities without increased leg pain. LTG Duration 06/01/21 One Impairment Pt does not have an appropriate home exercise program Short Term Goal (STG) Pt to be independent and compliant with an appropriate HEP STG Duration 04/30/21 Assessment Summary Assessment Pt doing better today, lessened pain in leg, still struggling some with joint/ lumbar instability. Physical Therapy Plan Frequency and Duration Frequency of Treatment 2x/Week Duration of Treatment Two months Plan of Care Start Date 04/03/21 Plan of Care End Date 06/01/21 Therapeutic Interventions Therapeutic Interventions Aquatic Therapy,Gait Training, Home Exercise Program,Manual Therapy,Neuromuscular Re- education,Patient/Caregiver Education,Self-Care/Home Management,Soft Tissue Mobilization,Therapeutic Activities,Therapeutic Exercises Modalities Cold Pack/Ice Massage,Electric Stimulation,Hot Packs, Ultrasound Next Visit Focus/Plan Next Note Type Treatment Note Next Visit Plan Nerve glides, lumbar mobility, core/back strengthening and stability
--- NOTE | 2021-04-16 16:46 | PT.OTN ---
Current Diagnoses Radiculopathy, lumbar region (04/16/21) Sciatica, right side (04/16/21) Other specified postprocedural states (04/16/21) Physical Therapy Treatment Note PT-OP-A Visit Information Start: 04/02/21 17:30 Freq: Status: Active Protocol: Document 04/16/21 16:00 DCW (Rec: 04/16/21 16:46 DCW [id number]) Out-Patient Physical Therapy Visit Information Visit Information Visit Type Treatment Note Visit Start Time 16:00 Visit Stop Time 16:45 Total Visit Minutes 45 Visit Number 5 Number of FIBER ANALYST Visits 0 Evaluation Information Evaluation Date 04/02/21 PT-OP-B Current Condition Start: 04/02/21 17:30 Freq: Status: Active Protocol: Document 04/02/21 16:05 DCW (Rec: 04/03/21 15:45 DCW [id number]) Current Condition History of Current Condition Onset Date 12/06/20 Current Complaints Sciatic nerve pain along right thigh History of Current Condition Pt is a 30 year old female presenting four months s/p L5- S1 discectomy. Pt had been in physical therapy previously last year, but after an MRI showed a significant disc herniation, pt opted for surgical intervention. Pt returns now following surgery on 12/06/20 with substantial improvement in mobility, pain, and range of motion, however continue to experience occasional sciatic pain from her low back down her posterior right thigh. Pt was referred by her surgeon in hopes to work on some sciatic flossing to help improve pain and break up adhesions. 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 Treatment Goals Patient/Caregiver Goals Improve sciatic nerve mobility , decrease pain PT-OP-C Subjective Start: 04/02/21 17:30 Freq: Status: Active Protocol: Document 04/16/21 16:00 DCW (Rec: 04/16/21 16:46 DCW [id number]) OP-PT Subjective Patient Comments Patient Comments Pt notes her neck has been bothering her the past three days, mainly on the right side at the base of her skull. Pain increased when going from sitting to standing. PT-OP-F Manual Assessment Start: 04/02/21 17:30 Freq: Status: Active Protocol: Document 04/02/21 16:05 DCW (Rec: 04/03/21 15:45 DCW [id number]) Manual Assessments Soft Tissue Assessment Soft Tissue Mobility Assessment Pt notes some loss of light touch sensation right low back , along QL. Joint Mobility Assessment Joint Mobility Assessment Hypermobility in all joints PT-OP-K Range of Motion Start: 04/02/21 17:30 Freq: Status: Active Protocol: Document 04/02/21 16:05 DCW (Rec: 04/03/21 11:15 DCW [id number]) Lumbar Spine Range of Motion Lumbar Spine Active Comments Pt exhibits hypermobility in all areas, able to bend forward with fully extended knees and place hands flat on floor. Pt also shows lateral flexion bilaterally with hands going 5 cm past knee joint line. PT-OP-L Special Tests Start: 04/02/21 17:30 Freq: Status: Active Protocol: Document 04/02/21 16:05 DCW (Rec: 04/03/21 11:15 DCW [id number]) Special Tests Lumbar Spine Special Tests RICHARD Test Results Negative Straight Leg Raise Test Results Negative Standing Flexion Test Results Negative A-P Shearing Test Results Negative Slump Test Results Strongly positive R PT-OP-M Strength Start: 04/02/21 17:30 Freq: Status: Active Protocol: Document 04/02/21 16:05 DCW (Rec: 04/03/21 11:15 DCW [id number]) Hip Strength Hip Manual Muscle Testing Right Flexion (L2) 4 Good Extension (S1) 4- Good- Abduction 5 Normal Adduction 5 Normal External Rotation 4+ Good+ Internal Rotation 4- Good- Left Flexion (L2) 5 Normal Extension (S1) 5 Normal Abduction 5 Normal Adduction 5 Normal External Rotation 4+ Good+ Internal Rotation 4+ Good+ Knee Strength Knee Manual Muscle Testing Right Flexion (S2) 4+ Good+ Extension (L3) 4+ Good+ Left Flexion (S2) 4+ Good+ Extension (L3) 4+ Good+ Ankle/Foot Strength Ankle and Foot Manual Muscle Testing Right Dorsiflexion (L4) 4+ Good+ Plantarflexion (S1) 4+ Good+ Left Dorsiflexion (L4) 4+ Good+ Plantarflexion (S1) 4+ Good+ PT-OP-Q Treatments Start: 04/02/21 17:30 Freq: Status: Active Protocol: Document 04/16/21 16:00 DCW (Rec: 04/16/21 16:46 DCW [id number]) Cardio Equipment Recumbent Elliptical (Biodex) Duration (Minutes) 4 Resistance 6 Seat Position 7 Gym Equipment Therapeutic Ball Hip/knee flexion Exercise Details Flexion vs resistance Ball Size/Color Red - 55 cm Lv 2 T-band Body Position Supine Bridging Exercise Details Bridging /c feet on ball Ball Size/Color Red - 55 cm Body Position Supine LTR Exercise Details LTR Ball Size/Color Red - 55 cm Body Position Supine Therapeutic Exercises Supine Exercises 1 Supine Exercise Name Sciatic nerve glide Side right Comments HS stretch /c ankle pump Standing Exercises 1 Standing Exercise Name Hip extension Side bilateral Resistance Red T-band loop Other Exercises 1 Other Exercise Name Resisted side-stepping Resistance Red T-band loop Manual Therapy Treatment Soft Tissue Mobilization lumbar paraspinals, glutes Body Location lumbar paraspinals, R piriformis Mobilization Type Rolling,Strumming,Sustained Pressure Intensity/Depth Moderate Body Position Sidelying PT-OP-T Assessment and Plan Start: 04/02/21 17:30 Freq: Status: Active Protocol: Document 04/16/21 16:00 DCW (Rec: 04/16/21 16:46 [facility] [id number]) Physical Therapy Assessment Impairments Impairments Functional Activities, Functional Mobility,Pain Other Concerns Barriers to Rehabilitation Recent diagnosis of Occipital neuralgia, tentative possible diagnoses of Wilbur-Danlos type III and POTS. Goals Two Impairment Pt experiences increased posterior R thigh pain with movement Field Applications Specialist Goal (LTG) Pt to perform 100% of daily activities without increased leg pain. LTG Duration 06/01/21 One Impairment Pt does not have an appropriate home exercise program Short Term Goal (STG) Pt to be independent and compliant with an appropriate HEP STG Duration 04/30/21 Assessment Summary Assessment Pt having a little bit more right thigh numbness today, but overall feels like she has been less symptomatic. Physical Therapy Plan Frequency and Duration Frequency of Treatment 2x/Week Duration of Treatment Two months Plan of Care Start Date 04/03/21 Plan of Care End Date 06/01/21 Therapeutic Interventions Therapeutic Interventions Aquatic Therapy,Gait Training, Home Exercise Program,Manual Therapy,Neuromuscular Re- education,Patient/Caregiver Education,Self-Care/Home Management,Soft Tissue Mobilization,Therapeutic Activities,Therapeutic Exercises Modalities Cold Pack/Ice Massage,Electric Stimulation,Hot Packs, Ultrasound Next Visit Focus/Plan Next Note Type Treatment Note Next Visit Plan Nerve glides, lumbar mobility, core/back strengthening and stability
--- NOTE | 2021-04-19 13:00 | PT.OTN ---
Current Diagnoses Radiculopathy, lumbar region (04/19/21) Sciatica, right side (04/19/21) Other specified postprocedural states (04/19/21) Physical Therapy Treatment Note PT-OP-A Visit Information Start: 04/02/21 17:30 Freq: Status: Active Protocol: Document 04/19/21 12:17 SP (Rec: 04/19/21 13:03 SP [id number]) Out-Patient Physical Therapy Visit Information Visit Information Visit Type Treatment Note Visit Note Has Visit Start Time 12:17 Visit Stop Time 13:00 Total Visit Minutes 43 Visit Number 6 Number of DEBT AND BUDGET COUNSELOR Visits 1 Evaluation Information Evaluation Date 04/02/21 PT-OP-B Current Condition Start: 04/02/21 17:30 Freq: Status: Active Protocol: Document 04/02/21 16:05 DCW (Rec: 04/03/21 15:45 DCW [id number]) Current Condition History of Current Condition Onset Date 12/06/20 Current Complaints Sciatic nerve pain along right thigh History of Current Condition Pt is a 30 year old female presenting four months s/p L5- S1 discectomy. Pt had been in physical therapy previously last year, but after an MRI showed a significant disc herniation, pt opted for surgical intervention. Pt returns now following surgery on 12/06/20 with substantial improvement in mobility, pain, and range of motion, however continue to experience occasional sciatic pain from her low back down her posterior right thigh. Pt was referred by her surgeon in hopes to work on some sciatic flossing to help improve pain and break up adhesions. 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 Treatment Goals Patient/Caregiver Goals Improve sciatic nerve mobility , decrease pain PT-OP-C Subjective Start: 04/02/21 17:30 Freq: Status: Active Protocol: Document 04/19/21 12:17 SP (Rec: 04/19/21 13:03 SP [id number]) OP-PT Subjective Patient Comments Patient Comments Pt stated having pain L lateral HS region pain, not as bad as pre surgery and worse when bending forward. Has appt with spray machine operator Thursday, suspecting POTS. PT-OP-F Manual Assessment Start: 04/02/21 17:30 Freq: Status: Active Protocol: Document 04/02/21 16:05 DCW (Rec: 04/03/21 15:45 DCW [id number]) Manual Assessments Soft Tissue Assessment Soft Tissue Mobility Assessment Pt notes some loss of light touch sensation right low back , along QL. Joint Mobility Assessment Joint Mobility Assessment Hypermobility in all joints PT-OP-K Range of Motion Start: 04/02/21 17:30 Freq: Status: Active Protocol: Document 04/02/21 16:05 DCW (Rec: 04/03/21 11:15 DCW [id number]) Lumbar Spine Range of Motion Lumbar Spine Active Comments Pt exhibits hypermobility in all areas, able to bend forward with fully extended knees and place hands flat on floor. Pt also shows lateral flexion bilaterally with hands going 5 cm past knee joint line. PT-OP-L Special Tests Start: 04/02/21 17:30 Freq: Status: Active Protocol: Document 04/02/21 16:05 DCW (Rec: 04/03/21 11:15 DCW [id number]) Special Tests Lumbar Spine Special Tests RICHARD Test Results Negative Straight Leg Raise Test Results Negative Standing Flexion Test Results Negative A-P Shearing Test Results Negative Slump Test Results Strongly positive R PT-OP-M Strength Start: 04/02/21 17:30 Freq: Status: Active Protocol: Document 04/02/21 16:05 DCW (Rec: 04/03/21 11:15 DCW [id number]) Hip Strength Hip Manual Muscle Testing Right Flexion (L2) 4 Good Extension (S1) 4- Good- Abduction 5 Normal Adduction 5 Normal External Rotation 4+ Good+ Internal Rotation 4- Good- Left Flexion (L2) 5 Normal Extension (S1) 5 Normal Abduction 5 Normal Adduction 5 Normal External Rotation 4+ Good+ Internal Rotation 4+ Good+ Knee Strength Knee Manual Muscle Testing Right Flexion (S2) 4+ Good+ Extension (L3) 4+ Good+ Left Flexion (S2) 4+ Good+ Extension (L3) 4+ Good+ Ankle/Foot Strength Ankle and Foot Manual Muscle Testing Right Dorsiflexion (L4) 4+ Good+ Plantarflexion (S1) 4+ Good+ Left Dorsiflexion (L4) 4+ Good+ Plantarflexion (S1) 4+ Good+ PT-OP-Q Treatments Start: 04/02/21 17:30 Freq: Status: Active Protocol: Document 04/19/21 12:17 SP (Rec: 04/19/21 13:03 SP [id number]) Cardio Equipment Recumbent Elliptical (Biodex) Duration (Minutes) 6 Resistance 6 Seat Position 7 Other LEs only, Total step 591. Gym Equipment Therapeutic Ball Hip/knee flexion Exercise Details Flexion vs resistance Ball Size/Color Red - 55 cm Lv 2 T-band (provided for home ) Body Position Supine Reps/Duration 2x20 Comments good adductor/hip flexor muscle soreness work Bridging Exercise Details Bridging /c feet on ball Ball Size/Color Red - 55 cm Body Position Supine Reps/Duration 5 reps x5 sets Comments cued TA and lift painfree no LB recruitment LTR Exercise Details LTR Ball Size/Color Red - 55 cm Body Position Supine Comments good TA and form, pain free Therapeutic Exercises Supine Exercises 1 Supine Exercise Name Sciatic nerve glide Side right Equipment Used grasp behind thigh, better if SLR lift 6 off table w/ AP Comments no tingling. Other Exercises 1 Other Exercise Name Resisted Fwd, bwd, side- stepping Resistance loop TB #3 (provided HO) Equipment Used contact side table pRN Reps/Minutes 10 ft x4 laps each direction Comments good form, cued TA/ PPT as needed Manual Therapy Treatment Soft Tissue Mobilization lumbar paraspinals, glutes Body Location lumbar paraspinals, R piriformis, R glut med Mobilization Type Rolling,Strumming,Sustained Pressure Intensity/Depth Moderate Body Position Sidelying PT-OP-T Assessment and Plan Start: 04/02/21 17:30 Freq: Status: Active Protocol: Document 04/19/21 12:17 SP (Rec: 04/19/21 13:03 SP [id number]) Physical Therapy Assessment Goals Two Impairment Pt experiences increased posterior R thigh pain with movement Web Press Operator Goal (LTG) Pt to perform 100% of daily activities without increased leg pain. LTG Duration 06/01/21 One Impairment Pt does not have an appropriate home exercise program Short Term Goal (STG) Pt to be independent and compliant with an appropriate HEP STG Duration 04/30/21 Assessment Summary Assessment Pt responded well to HEP review, requested HOs and TB loop for home carryover. Pt worked hard better understanding of hip abd fac and improved foot clearance. She stated decrease L lateral thigh pain end of tx. Physical Therapy Plan Frequency and Duration Frequency of Treatment 2x/Week Duration of Treatment Two months Plan of Care Start Date 04/03/21 Plan of Care End Date 06/01/21 Therapeutic Interventions Therapeutic Interventions Aquatic Therapy,Gait Training, Home Exercise Program,Manual Therapy,Neuromuscular Re- education,Patient/Caregiver Education,Self-Care/Home Management,Soft Tissue Mobilization,Therapeutic Activities,Therapeutic Exercises Modalities Cold Pack/Ice Massage,Electric Stimulation,Hot Packs, Ultrasound Next Visit Focus/Plan Next Note Type Treatment Note Next Visit Plan Recheck seated nerve glides and response to added band walk after last tx. Next tx: Add TS stand resisted row/shld ext. Add supine hip stretching is tolerated. POC: lumbar mobility, core/ back strengthening and stability
--- NOTE | 2021-04-23 16:52 | PT.OTN ---
Current Diagnoses Radiculopathy, lumbar region (04/23/21) Sciatica, right side (04/23/21) Other specified postprocedural states (04/23/21) Physical Therapy Treatment Note PT-OP-A Visit Information Start: 04/02/21 17:30 Freq: Status: Active Protocol: Document 04/23/21 16:00 DCW (Rec: 04/23/21 16:52 DCW [id number]) Out-Patient Physical Therapy Visit Information Visit Information Visit Type Treatment Note Visit Start Time 16:00 Visit Stop Time 16:45 Total Visit Minutes 45 Visit Number 7 Number of INTERNAL AUDIT MANAGER Visits 0 Evaluation Information Evaluation Date 04/02/21 PT-OP-B Current Condition Start: 04/02/21 17:30 Freq: Status: Active Protocol: Document 04/02/21 16:05 DCW (Rec: 04/03/21 15:45 DCW [id number]) Current Condition History of Current Condition Onset Date 12/06/20 Current Complaints Sciatic nerve pain along right thigh History of Current Condition Pt is a 30 year old female presenting four months s/p L5- S1 discectomy. Pt had been in physical therapy previously last year, but after an MRI showed a significant disc herniation, pt opted for surgical intervention. Pt returns now following surgery on 12/06/20 with substantial improvement in mobility, pain, and range of motion, however continue to experience occasional sciatic pain from her low back down her posterior right thigh. Pt was referred by her surgeon in hopes to work on some sciatic flossing to help improve pain and break up adhesions. 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 Treatment Goals Patient/Caregiver Goals Improve sciatic nerve mobility , decrease pain PT-OP-C Subjective Start: 04/02/21 17:30 Freq: Status: Active Protocol: Document 04/23/21 16:00 DCW (Rec: 04/23/21 16:52 DCW [id number]) OP-PT Subjective Patient Comments Patient Comments Pt notes her potental POTS symptoms seem to be worsening over the past few months. Reports her appointment with a commercial crabber didn't go well, and she is hoping for a second opinion. PT-OP-F Manual Assessment Start: 04/02/21 17:30 Freq: Status: Active Protocol: Document 04/02/21 16:05 DCW (Rec: 04/03/21 15:45 DCW [id number]) Manual Assessments Soft Tissue Assessment Soft Tissue Mobility Assessment Pt notes some loss of light touch sensation right low back , along QL. Joint Mobility Assessment Joint Mobility Assessment Hypermobility in all joints PT-OP-K Range of Motion Start: 04/02/21 17:30 Freq: Status: Active Protocol: Document 04/02/21 16:05 DCW (Rec: 04/03/21 11:15 DCW [id number]) Lumbar Spine Range of Motion Lumbar Spine Active Comments Pt exhibits hypermobility in all areas, able to bend forward with fully extended knees and place hands flat on floor. Pt also shows lateral flexion bilaterally with hands going 5 cm past knee joint line. PT-OP-L Special Tests Start: 04/02/21 17:30 Freq: Status: Active Protocol: Document 04/02/21 16:05 DCW (Rec: 04/03/21 11:15 DCW [id number]) Special Tests Lumbar Spine Special Tests RICHARD Test Results Negative Straight Leg Raise Test Results Negative Standing Flexion Test Results Negative A-P Shearing Test Results Negative Slump Test Results Strongly positive R PT-OP-M Strength Start: 04/02/21 17:30 Freq: Status: Active Protocol: Document 04/02/21 16:05 DCW (Rec: 04/03/21 11:15 DCW [id number]) Hip Strength Hip Manual Muscle Testing Right Flexion (L2) 4 Good Extension (S1) 4- Good- Abduction 5 Normal Adduction 5 Normal External Rotation 4+ Good+ Internal Rotation 4- Good- Left Flexion (L2) 5 Normal Extension (S1) 5 Normal Abduction 5 Normal Adduction 5 Normal External Rotation 4+ Good+ Internal Rotation 4+ Good+ Knee Strength Knee Manual Muscle Testing Right Flexion (S2) 4+ Good+ Extension (L3) 4+ Good+ Left Flexion (S2) 4+ Good+ Extension (L3) 4+ Good+ Ankle/Foot Strength Ankle and Foot Manual Muscle Testing Right Dorsiflexion (L4) 4+ Good+ Plantarflexion (S1) 4+ Good+ Left Dorsiflexion (L4) 4+ Good+ Plantarflexion (S1) 4+ Good+ PT-OP-Q Treatments Start: 04/02/21 17:30 Freq: Status: Active Protocol: Document 04/23/21 16:00 DCW (Rec: 04/23/21 16:52 [facility] [id number]) Cardio Equipment Recumbent Elliptical (Biodex) Duration (Minutes) 5 Resistance 6 Seat Position 7 Gym Equipment Therapeutic Ball Hip/knee flexion Exercise Details Flexion vs resistance Ball Size/Color Red - 55 cm Lv 2 T-band Body Position Supine Reps/Duration 2x20 Comments good adductor/hip flexor muscle soreness work Bridging Exercise Details Bridging /c feet on ball Ball Size/Color Red - 55 cm Body Position Supine Reps/Duration 5 reps x5 sets Comments cued TA and lift painfree no LB recruitment LTR Exercise Details LTR Ball Size/Color Red - 55 cm Body Position Supine Comments good TA and form, pain free Therapeutic Exercises Supine Exercises 1 Supine Exercise Name Sciatic nerve glide Side right Equipment Used grasp behind thigh, better if SLR lift 6 off table w/ AP Comments no tingling. Other Exercises 1 Other Exercise Name Resisted Fwd, bwd, side- stepping Resistance Green T-band loop Reps/Minutes 10 ft x4 laps each direction Comments good form, cued TA/ PPT as needed Manual Therapy Treatment Soft Tissue Mobilization lumbar paraspinals, glutes Body Location lumbar paraspinals, R piriformis, R glut med Mobilization Type Rolling,Strumming,Sustained Pressure Intensity/Depth Moderate Body Position Sidelying PT-OP-T Assessment and Plan Start: 04/02/21 17:30 Freq: Status: Active Protocol: Document 04/23/21 16:00 DC (Rec: 04/23/21 16:52 [facility] [id number]) Physical Therapy Assessment Assessment Summary Assessment Some slightly increased tone in low back today, but overall moving fairly well today. Physical Therapy Plan Frequency and Duration Frequency of Treatment 2x/Week Duration of Treatment Two months Plan of Care Start Date 04/03/21 Plan of Care End Date 06/01/21 Therapeutic Interventions Therapeutic Interventions Aquatic Therapy,Gait Training, Home Exercise Program,Manual Therapy,Neuromuscular Re- education,Patient/Caregiver Education,Self-Care/Home Management,Soft Tissue Mobilization,Therapeutic Activities,Therapeutic Exercises Modalities Cold Pack/Ice Massage,Electric Stimulation,Hot Packs, Ultrasound Next Visit Focus/Plan Next Note Type Treatment Note Next Visit Plan Recheck seated nerve glides and response to added band walk after last tx. Next tx: Add TS stand resisted row/shld ext. Add supine hip stretching is tolerated. POC: lumbar mobility, core/ back strengthening and stability
--- NOTE | 2021-04-26 13:00 | PT.OTN ---
Current Diagnoses Radiculopathy, lumbar region (04/26/21) Sciatica, right side (04/26/21) Other specified postprocedural states (04/26/21) Physical Therapy Treatment Note PT-OP-A Visit Information Start: 04/02/21 17:30 Freq: Status: Active Protocol: Document 04/26/21 12:20 SP (Rec: 04/26/21 13:06 SP [id number]) Out-Patient Physical Therapy Visit Information Visit Information Visit Type Treatment Note Visit Start Time 12:20 Visit Stop Time 13:00 Total Visit Minutes 40 Visit Number 8 Number of QUALITY CONTROL OPERATOR Visits 1 Evaluation Information Evaluation Date 04/02/21 PT-OP-B Current Condition Start: 04/02/21 17:30 Freq: Status: Active Protocol: Document 04/02/21 16:05 DCW (Rec: 04/03/21 15:45 DCW [id number]) Current Condition History of Current Condition Onset Date 12/06/20 Current Complaints Sciatic nerve pain along right thigh History of Current Condition Pt is a 30 year old female presenting four months s/p L5- S1 discectomy. Pt had been in physical therapy previously last year, but after an MRI showed a significant disc herniation, pt opted for surgical intervention. Pt returns now following surgery on 12/06/20 with substantial improvement in mobility, pain, and range of motion, however continue to experience occasional sciatic pain from her low back down her posterior right thigh. Pt was referred by her surgeon in hopes to work on some sciatic flossing to help improve pain and break up adhesions. 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 Treatment Goals Patient/Caregiver Goals Improve sciatic nerve mobility , decrease pain PT-OP-C Subjective Start: 04/02/21 17:30 Freq: Status: Active Protocol: Document 04/26/21 12:20 SP (Rec: 04/26/21 13:06 SP [id number]) OP-PT Subjective Patient Comments Patient Comments Pt reports next day after last tx started tingling/ itching like prickling deeper in muscles in B anterior thighs down front leg and across top feet- newer, tried stretching, sciatic nerve glide, HEP but didn't go away so decided to lay down and after 20 min went away. PT-OP-F Manual Assessment Start: 04/02/21 17:30 Freq: Status: Active Protocol: Document 04/02/21 16:05 DCW (Rec: 04/03/21 15:45 DCW [id number]) Manual Assessments Soft Tissue Assessment Soft Tissue Mobility Assessment Pt notes some loss of light touch sensation right low back , along QL. Joint Mobility Assessment Joint Mobility Assessment Hypermobility in all joints PT-OP-K Range of Motion Start: 04/02/21 17:30 Freq: Status: Active Protocol: Document 04/02/21 16:05 DCW (Rec: 04/03/21 11:15 DCW [id number]) Lumbar Spine Range of Motion Lumbar Spine Active Comments Pt exhibits hypermobility in all areas, able to bend forward with fully extended knees and place hands flat on floor. Pt also shows lateral flexion bilaterally with hands going 5 cm past knee joint line. PT-OP-L Special Tests Start: 04/02/21 17:30 Freq: Status: Active Protocol: Document 04/02/21 16:05 DCW (Rec: 04/03/21 11:15 DCW [id number]) Special Tests Lumbar Spine Special Tests RICHARD Test Results Negative Straight Leg Raise Test Results Negative Standing Flexion Test Results Negative A-P Shearing Test Results Negative Slump Test Results Strongly positive R PT-OP-M Strength Start: 04/02/21 17:30 Freq: Status: Active Protocol: Document 04/02/21 16:05 DCW (Rec: 04/03/21 11:15 DCW [id number]) Hip Strength Hip Manual Muscle Testing Right Flexion (L2) 4 Good Extension (S1) 4- Good- Abduction 5 Normal Adduction 5 Normal External Rotation 4+ Good+ Internal Rotation 4- Good- Left Flexion (L2) 5 Normal Extension (S1) 5 Normal Abduction 5 Normal Adduction 5 Normal External Rotation 4+ Good+ Internal Rotation 4+ Good+ Knee Strength Knee Manual Muscle Testing Right Flexion (S2) 4+ Good+ Extension (L3) 4+ Good+ Left Flexion (S2) 4+ Good+ Extension (L3) 4+ Good+ Ankle/Foot Strength Ankle and Foot Manual Muscle Testing Right Dorsiflexion (L4) 4+ Good+ Plantarflexion (S1) 4+ Good+ Left Dorsiflexion (L4) 4+ Good+ Plantarflexion (S1) 4+ Good+ PT-OP-Q Treatments Start: 04/02/21 17:30 Freq: Status: Active Protocol: Document 04/26/21 12:20 SP (Rec: 04/26/21 13:06 SP [id number]) Cardio Equipment Recumbent Elliptical (Biodex) Duration (Minutes) 3 Resistance 6 Seat Position 7 Other tingling 2 min into posterior thighs, didnt' improve stopped at 3 min. Gym Equipment Therapeutic Ball Hip/knee flexion Exercise Details Flexion vs resistance Ball Size/Color Red - 55 cm Lv 3 T-band Body Position Supine Reps/Duration x10 Comments good adductor/hip flexor muscle soreness but more tingling B anterior thigh going over knees, so stoopped Bridging Exercise Details Bridging /c feet on ball Ball Size/Color Red - 55 cm Body Position Supine Reps/Duration 5 reps x5 sets Comments cued TA and lift- little ache but tingling radiated to L5 S1 area,so stopped LTR Exercise Details LTR Ball Size/Color Red - 55 cm Body Position Supine Reps/Duration x10 Comments good TA and form, pain free, little ache in R HS during R LS rotation Therapeutic Exercises Supine Exercises pirformis stretch Side bilateral Reps/Minutes 30 x2 Comments no significant change in tingling. 2 Supine Exercise Name PPT/TrA contraction Reps/Minutes 5 hold 1 Supine Exercise Name Sciatic nerve glide- HEP review Side right Equipment Used grasp behind thigh, better if SLR lift 6 off table w/ AP Reps/Minutes x10 Comments no change in tingling, R foot felt like blood leaving foot Manual Therapy Treatment Soft Tissue Mobilization lumbar paraspinals, glutes Body Location R lumbar paraspinals, R piriformis, R glut med Mobilization Type Rolling,Strumming,Sustained Pressure Intensity/Depth Moderate Body Position Prone Comments manual, states less feeling of pressure over R glut med with same amt pressure over each area. L LB twinge during R strumming paraspinal. Manual Traction long axis pull Details RLE Body Position Hooklying Reps/Duration 1 min x3 Comments reports little less tingling anterior R thigh, still in L anterior christianson Lumbar Body Position Hooklying Reps/Duration 1 min x 5 Comments with strap PT-OP-T Assessment and Plan Start: 04/02/21 17:30 Freq: Status: Active Protocol: Document 04/26/21 12:20 SP (Rec: 04/26/21 13:06 SP [id number]) Physical Therapy Assessment Goals Two Impairment Pt experiences increased posterior R thigh pain with movement Office Equipment Technician Goal (LTG) Pt to perform 100% of daily activities without increased leg pain. LTG Duration 06/01/21 One Impairment Pt does not have an appropriate home exercise program Short Term Goal (STG) Pt to be independent and compliant with an appropriate HEP STG Duration 04/30/21 Assessment Summary Assessment Pt reports 100% upon arrival, decreased tingling R>L anterior thighs decrease in tingling 85% post manual and HEP review, still R>L around anterior/ posterior thighs, anterior/posterior lower leg and dorsal foot. QUALITY CONTROL OPERATOR educated call physician Dr Gutierrez if doesn't improve by Thursday. She states sees PCP . Needs time to adjust to change of position for decrease dizziness always has supine> sit. Physical Therapy Plan Frequency and Duration Frequency of Treatment 2x/Week Duration of Treatment Two months Plan of Care Start Date 04/03/21 Plan of Care End Date 06/01/21 Therapeutic Interventions Therapeutic Interventions Aquatic Therapy,Gait Training, Home Exercise Program,Manual Therapy,Neuromuscular Re- education,Patient/Caregiver Education,Self-Care/Home Management,Soft Tissue Mobilization,Therapeutic Activities,Therapeutic Exercises Modalities Cold Pack/Ice Massage,Electric Stimulation,Hot Packs, Ultrasound Next Visit Focus/Plan Next Note Type Treatment Note Next Visit Plan Recheck seated nerve glides and response to added band walk after last tx. Next tx: Add TS stand resisted row/shld ext. Add supine hip stretching is tolerated. POC: lumbar mobility, core/ back strengthening and stability
--- NOTE | 2021-05-03 11:15 | PT.OTN ---
Current Diagnoses Radiculopathy, lumbar region (05/03/21) Sciatica, right side (05/03/21) Other specified postprocedural states (05/03/21) Physical Therapy Treatment Note PT-OP-A Visit Information Start: 04/02/21 17:30 Freq: Status: Active Protocol: Document 05/03/21 10:33 SP (Rec: 05/03/21 11:28 SP [id number]) Out-Patient Physical Therapy Visit Information Visit Information Visit Type Treatment Note Visit Start Time 10:33 Visit Stop Time 11:15 Total Visit Minutes 42 Visit Number 9 Number of MENDING CARRIER Visits 2 Evaluation Information Evaluation Date 04/02/21 PT-OP-B Current Condition Start: 04/02/21 17:30 Freq: Status: Active Protocol: Document 04/02/21 16:05 DCW (Rec: 04/03/21 15:45 DCW [id number]) Current Condition History of Current Condition Onset Date 12/06/20 Current Complaints Sciatic nerve pain along right thigh History of Current Condition Pt is a 30 year old female presenting four months s/p L5- S1 discectomy. Pt had been in physical therapy previously last year, but after an MRI showed a significant disc herniation, pt opted for surgical intervention. Pt returns now following surgery on 12/06/20 with substantial improvement in mobility, pain, and range of motion, however continue to experience occasional sciatic pain from her low back down her posterior right thigh. Pt was referred by her surgeon in hopes to work on some sciatic flossing to help improve pain and break up adhesions. 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 Treatment Goals Patient/Caregiver Goals Improve sciatic nerve mobility , decrease pain PT-OP-C Subjective Start: 04/02/21 17:30 Freq: Status: Active Protocol: Document 05/03/21 10:33 SP (Rec: 05/03/21 11:28 SP [id number]) OP-PT Subjective Patient Comments Patient Comments Pt ASHLYN Love that assisted Dr Gutierrez and ordered MRI and nerve conduction to LB and Primary Dr send in referral for CS PT and MRI for CS assessment. Pt states buzzing in BLE continues, doesn't see decrease or anything significant in sciatic nerve buzzing improvement since starting PT. She stated with standing activity, tingling increases. Went to [employer], when walking around front R ankle started to go numb, tried adjusting shoe for decrease tightness and stretch , required increase foot clearance stride for safety to reduce risk for catching. PT-OP-F Manual Assessment Start: 04/02/21 17:30 Freq: Status: Active Protocol: Document 04/02/21 16:05 DCW (Rec: 04/03/21 15:45 DCW [id number]) Manual Assessments Soft Tissue Assessment Soft Tissue Mobility Assessment Pt notes some loss of light touch sensation right low back , along QL. Joint Mobility Assessment Joint Mobility Assessment Hypermobility in all joints PT-OP-K Range of Motion Start: 04/02/21 17:30 Freq: Status: Active Protocol: Document 04/02/21 16:05 DCW (Rec: 04/03/21 11:15 DCW [id number]) Lumbar Spine Range of Motion Lumbar Spine Active Comments Pt exhibits hypermobility in all areas, able to bend forward with fully extended knees and place hands flat on floor. Pt also shows lateral flexion bilaterally with hands going 5 cm past knee joint line. PT-OP-L Special Tests Start: 04/02/21 17:30 Freq: Status: Active Protocol: Document 04/02/21 16:05 DCW (Rec: 04/03/21 11:15 DCW [id number]) Special Tests Lumbar Spine Special Tests RICHARD Test Results Negative Straight Leg Raise Test Results Negative Standing Flexion Test Results Negative A-P Shearing Test Results Negative Slump Test Results Strongly positive R PT-OP-M Strength Start: 04/02/21 17:30 Freq: Status: Active Protocol: Document 04/02/21 16:05 DCW (Rec: 04/03/21 11:15 DCW [id number]) Hip Strength Hip Manual Muscle Testing Right Flexion (L2) 4 Good Extension (S1) 4- Good- Abduction 5 Normal Adduction 5 Normal External Rotation 4+ Good+ Internal Rotation 4- Good- Left Flexion (L2) 5 Normal Extension (S1) 5 Normal Abduction 5 Normal Adduction 5 Normal External Rotation 4+ Good+ Internal Rotation 4+ Good+ Knee Strength Knee Manual Muscle Testing Right Flexion (S2) 4+ Good+ Extension (L3) 4+ Good+ Left Flexion (S2) 4+ Good+ Extension (L3) 4+ Good+ Ankle/Foot Strength Ankle and Foot Manual Muscle Testing Right Dorsiflexion (L4) 4+ Good+ Plantarflexion (S1) 4+ Good+ Left Dorsiflexion (L4) 4+ Good+ Plantarflexion (S1) 4+ Good+ PT-OP-Q Treatments Start: 04/02/21 17:30 Freq: Status: Active Protocol: Document 05/03/21 10:33 SP (Rec: 05/03/21 11:28 SP [id number]) Cardio Equipment Recumbent Elliptical ([employer]) Duration (Minutes) 5 Resistance 4> Seat Position 6 Other increase in tingling at Gym Equipment Therapeutic Ball Hip/knee flexion Exercise Details Flexion vs resistance Ball Size/Color Red - 55 cm Lv 3 T-band Body Position Supine Reps/Duration x10 Comments stated tingling same no worse, feels distal quad tiring. Bridging Exercise Details Bridging /c straight soft knee w/ feet on ball Ball Size/Color Red - 55 cm Body Position Supine Reps/Duration 5 reps x5 sets Comments good soft knee and core facilitation during lift, able do without contact support. LTR Exercise Details LTR Ball Size/Color Red - 55 cm TB #2 Body Position Supine Reps/Duration 2x5, increase 10 reps next tx Comments good TA and form, pain free, states can feel more core working Therapeutic Exercises Standing Exercises TA shld ext Standing Exercise Name added to HEP Resistance Tb #2 x10 Reps/Minutes better post self manual STMs racquetball on wall Comments cued soft knee, neutral pelvis , no [place] recruit, little rhomoboid Other Exercises self STMs Other Exercise Name R rhomboid Side right Equipment Used racquetball on wall Reps/Minutes 30 sec Comments little soreness but lessened muscle tension for second set shld ext 1 Other Exercise Name Resisted Fwd, bwd, side- stepping Resistance Green T-band loop Reps/Minutes 10 ft x4 laps lateral/ x2 f/b due increase tingle anterior R ankle stopped Comments good form, cued TA/ PPT as needed PT-OP-T Assessment and Plan Start: 04/02/21 17:30 Freq: Status: Active Protocol: Document 05/03/21 10:33 SP (Rec: 05/03/21 11:28 SP [id number]) Physical Therapy Assessment Goals Two Impairment Pt experiences increased posterior R thigh pain with movement Residential Goal (LTG) Pt to perform 100% of daily activities without increased leg pain. LTG Duration 06/01/21 One Impairment Pt does not have an appropriate home exercise program Short Term Goal (STG) Pt to be independent and compliant with an appropriate HEP STG Duration 04/30/21 Assessment Summary Assessment Pt responded well to manual traction end of tx it feels like muscles a loosening and cool release feeling in LB into legs. Pt tolerated increase resistance with TA and obliques fac during LTR w/ no increase in tingling into LB or LEs. Good stability during standing core/ hip abd strengthening. Initiated resisted shld ext and self STMs to decrease rhombid soreness spasm and improved return 2nd set. Physical Therapy Plan Frequency and Duration Frequency of Treatment 2x/Week Duration of Treatment Two months Plan of Care Start Date 04/03/21 Plan of Care End Date 06/01/21 Therapeutic Interventions Therapeutic Interventions Aquatic Therapy,Gait Training, Home Exercise Program,Manual Therapy,Neuromuscular Re- education,Patient/Caregiver Education,Self-Care/Home Management,Soft Tissue Mobilization,Therapeutic Activities,Therapeutic Exercises Modalities Cold Pack/Ice Massage,Electric Stimulation,Hot Packs, Ultrasound Next Visit Focus/Plan Next Note Type Treatment Note Next Visit Plan Next tx: review resisted shld ext added last tx for core strengthening. Add supine hip stretching is tolerated. POC: lumbar mobility, core/ back strengthening and stability
--- NOTE | 2021-05-10 14:41 | PT.OTN ---
Current Diagnoses Radiculopathy, lumbar region (05/10/21) Sciatica, right side (05/10/21) Other specified postprocedural states (05/10/21) Physical Therapy Treatment Note PT-OP-A Visit Information Start: 04/02/21 17:30 Freq: Status: Active Protocol: Document 05/10/21 13:45 DCW (Rec: 05/10/21 14:41 DCW [id number]) Out-Patient Physical Therapy Visit Information Visit Information Visit Type Treatment Note Visit Start Time 13:45 Visit Stop Time 14:30 Total Visit Minutes 45 Visit Number 10 Number of ASSOCIATE DIRECTOR OF DEVELOPMENT Visits 0 Evaluation Information Evaluation Date 04/02/21 PT-OP-B Current Condition Start: 04/02/21 17:30 Freq: Status: Active Protocol: Document 04/02/21 16:05 DCW (Rec: 04/03/21 15:45 DCW [id number]) Current Condition History of Current Condition Onset Date 12/06/20 Current Complaints Sciatic nerve pain along right thigh History of Current Condition Pt is a 30 year old female presenting four months s/p L5- S1 discectomy. Pt had been in physical therapy previously last year, but after an MRI showed a significant disc herniation, pt opted for surgical intervention. Pt returns now following surgery on 12/06/20 with substantial improvement in mobility, pain, and range of motion, however continue to experience occasional sciatic pain from her low back down her posterior right thigh. Pt was referred by her surgeon in hopes to work on some sciatic flossing to help improve pain and break up adhesions. 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 Treatment Goals Patient/Caregiver Goals Improve sciatic nerve mobility , decrease pain PT-OP-C Subjective Start: 04/02/21 17:30 Freq: Status: Active Protocol: Document 05/10/21 13:45 DCW (Rec: 05/10/21 14:41 DCW [id number]) OP-PT Subjective Patient Comments Patient Comments Pt has been approved for injections in her neck, but unfortunately was denied for the MRI. Pt notes she has a referal on the way for her cervical spine. PT-OP-F Manual Assessment Start: 04/02/21 17:30 Freq: Status: Active Protocol: Document 04/02/21 16:05 DCW (Rec: 04/03/21 15:45 DCW [id number]) Manual Assessments Soft Tissue Assessment Soft Tissue Mobility Assessment Pt notes some loss of light touch sensation right low back , along QL. Joint Mobility Assessment Joint Mobility Assessment Hypermobility in all joints PT-OP-K Range of Motion Start: 04/02/21 17:30 Freq: Status: Active Protocol: Document 04/02/21 16:05 DCW (Rec: 04/03/21 11:15 DCW [id number]) Lumbar Spine Range of Motion Lumbar Spine Active Comments Pt exhibits hypermobility in all areas, able to bend forward with fully extended knees and place hands flat on floor. Pt also shows lateral flexion bilaterally with hands going 5 cm past knee joint line. PT-OP-L Special Tests Start: 04/02/21 17:30 Freq: Status: Active Protocol: Document 04/02/21 16:05 DCW (Rec: 04/03/21 11:15 DCW [id number]) Special Tests Lumbar Spine Special Tests RICHARD Test Results Negative Straight Leg Raise Test Results Negative Standing Flexion Test Results Negative A-P Shearing Test Results Negative Slump Test Results Strongly positive R PT-OP-M Strength Start: 04/02/21 17:30 Freq: Status: Active Protocol: Document 04/02/21 16:05 DCW (Rec: 04/03/21 11:15 DCW [id number]) Hip Strength Hip Manual Muscle Testing Right Flexion (L2) 4 Good Extension (S1) 4- Good- Abduction 5 Normal Adduction 5 Normal External Rotation 4+ Good+ Internal Rotation 4- Good- Left Flexion (L2) 5 Normal Extension (S1) 5 Normal Abduction 5 Normal Adduction 5 Normal External Rotation 4+ Good+ Internal Rotation 4+ Good+ Knee Strength Knee Manual Muscle Testing Right Flexion (S2) 4+ Good+ Extension (L3) 4+ Good+ Left Flexion (S2) 4+ Good+ Extension (L3) 4+ Good+ Ankle/Foot Strength Ankle and Foot Manual Muscle Testing Right Dorsiflexion (L4) 4+ Good+ Plantarflexion (S1) 4+ Good+ Left Dorsiflexion (L4) 4+ Good+ Plantarflexion (S1) 4+ Good+ PT-OP-Q Treatments Start: 04/02/21 17:30 Freq: Status: Active Protocol: Document 05/10/21 13:45 DCW (Rec: 05/10/21 14:41 DCW [id number]) Cardio Equipment Recumbent Elliptical (Biodex) Duration (Minutes) 5 Resistance 4 Seat Position 8 Gym Equipment Therapeutic Ball Hip/knee flexion Exercise Details Flexion vs resistance Ball Size/Color Red - 55 cm Lv 3 T-band Body Position Supine Reps/Duration x10 Comments good adductor/hip flexor muscle soreness but more tingling B anterior thigh going over knees, so stoopped Bridging Exercise Details Bridging /c feet on ball Ball Size/Color Red - 55 cm Body Position Supine Reps/Duration 5 reps x5 sets Comments cued TA and lift- little ache but tingling radiated to L5 S1 area,so stopped LTR Exercise Details LTR Ball Size/Color Red - 55 cm Body Position Supine Reps/Duration x10 Comments good TA and form, pain free, little ache in R HS during R LS rotation Therapeutic Exercises Supine Exercises pirformis stretch Side bilateral Reps/Minutes 30 x2 Comments no significant change in tingling. 1 Supine Exercise Name Sciatic nerve glide Side bilateral Reps/Minutes x10 Comments no change in tingling, R foot felt like blood leaving foot Manual Therapy Treatment Soft Tissue Mobilization lumbar paraspinals, glutes Body Location R lumbar paraspinals, R piriformis, R glut med Mobilization Type Rolling,Strumming,Sustained Pressure Intensity/Depth Moderate Body Position Prone Comments cold water sensation along right knee PT-OP-T Assessment and Plan Start: 04/02/21 17:30 Freq: Status: Active Protocol: Document 05/10/21 13:45 DCW (Rec: 05/10/21 14:41 DCW [id number]) Physical Therapy Assessment Goals Two Impairment Pt experiences increased posterior R thigh pain with movement Manager International Goal (LTG) Pt to perform 100% of daily activities without increased leg pain. LTG Duration 06/01/21 One Impairment Pt does not have an appropriate home exercise program Short Term Goal (STG) Pt to be independent and compliant with an appropriate HEP STG Duration 04/30/21 Assessment Summary Assessment Pt still experiencing significant neuro symptoms, now noticeable increase in UE/ cervical tingling as well. Will plan to reassess cervical spine upon arrival of new referral. Physical Therapy Plan Frequency and Duration Frequency of Treatment 2x/Week Duration of Treatment Two months Plan of Care Start Date 04/03/21 Plan of Care End Date 06/01/21 Therapeutic Interventions Therapeutic Interventions Aquatic Therapy,Gait Training, Home Exercise Program,Manual Therapy,Neuromuscular Re- education,Patient/Caregiver Education,Self-Care/Home Management,Soft Tissue Mobilization,Therapeutic Activities,Therapeutic Exercises Modalities Cold Pack/Ice Massage,Electric Stimulation,Hot Packs, Ultrasound Next Visit Focus/Plan Next Note Type Treatment Note Next Visit Plan Next tx: review resisted shld ext added last tx for core strengthening. Add supine hip stretching is tolerated. POC: lumbar mobility, core/ back strengthening and stability
--- NOTE | 2021-05-14 10:30 | PT.OTN ---
Current Diagnoses Radiculopathy, lumbar region (05/14/21) Sciatica, right side (05/14/21) Other specified postprocedural states (05/14/21) Physical Therapy Treatment Note PT-OP-A Visit Information Start: 04/02/21 17:30 Freq: Status: Active Protocol: Document 05/14/21 09:55 SP (Rec: 05/14/21 10:33 SP [id number]) Out-Patient Physical Therapy Visit Information Visit Information Visit Type Treatment Note Visit Start Time 09:55 Visit Stop Time 10:30 Total Visit Minutes 35 Visit Number 11 Number of TITLE I INSTRUCTIONAL ASSISTANT Visits 1 Evaluation Information Evaluation Date 04/02/21 PT-OP-B Current Condition Start: 04/02/21 17:30 Freq: Status: Active Protocol: Document 04/02/21 16:05 DCW (Rec: 04/03/21 15:45 DCW [id number]) Current Condition History of Current Condition Onset Date 12/06/20 Current Complaints Sciatic nerve pain along right thigh History of Current Condition Pt is a 30 year old female presenting four months s/p L5- S1 discectomy. Pt had been in physical therapy previously last year, but after an MRI showed a significant disc herniation, pt opted for surgical intervention. Pt returns now following surgery on 12/06/20 with substantial improvement in mobility, pain, and range of motion, however continue to experience occasional sciatic pain from her low back down her posterior right thigh. Pt was referred by her surgeon in hopes to work on some sciatic flossing to help improve pain and break up adhesions. 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 Treatment Goals Patient/Caregiver Goals Improve sciatic nerve mobility , decrease pain PT-OP-C Subjective Start: 04/02/21 17:30 Freq: Status: Active Protocol: Document 05/14/21 09:55 SP (Rec: 05/14/21 10:33 SP [id number]) OP-PT Subjective Patient Comments Patient Comments Pt reports having pain across low back and into R glut when leans back and unsure if due to tightness. PT-OP-F Manual Assessment Start: 04/02/21 17:30 Freq: Status: Active Protocol: Document 04/02/21 16:05 DCW (Rec: 04/03/21 15:45 DCW [id number]) Manual Assessments Soft Tissue Assessment Soft Tissue Mobility Assessment Pt notes some loss of light touch sensation right low back , along QL. Joint Mobility Assessment Joint Mobility Assessment Hypermobility in all joints PT-OP-K Range of Motion Start: 04/02/21 17:30 Freq: Status: Active Protocol: Document 04/02/21 16:05 DCW (Rec: 04/03/21 11:15 DCW [id number]) Lumbar Spine Range of Motion Lumbar Spine Active Comments Pt exhibits hypermobility in all areas, able to bend forward with fully extended knees and place hands flat on floor. Pt also shows lateral flexion bilaterally with hands going 5 cm past knee joint line. PT-OP-L Special Tests Start: 04/02/21 17:30 Freq: Status: Active Protocol: Document 04/02/21 16:05 DCW (Rec: 04/03/21 11:15 DCW [id number]) Special Tests Lumbar Spine Special Tests RICHARD Test Results Negative Straight Leg Raise Test Results Negative Standing Flexion Test Results Negative A-P Shearing Test Results Negative Slump Test Results Strongly positive R PT-OP-M Strength Start: 04/02/21 17:30 Freq: Status: Active Protocol: Document 04/02/21 16:05 DCW (Rec: 04/03/21 11:15 DCW [id number]) Hip Strength Hip Manual Muscle Testing Right Flexion (L2) 4 Good Extension (S1) 4- Good- Abduction 5 Normal Adduction 5 Normal External Rotation 4+ Good+ Internal Rotation 4- Good- Left Flexion (L2) 5 Normal Extension (S1) 5 Normal Abduction 5 Normal Adduction 5 Normal External Rotation 4+ Good+ Internal Rotation 4+ Good+ Knee Strength Knee Manual Muscle Testing Right Flexion (S2) 4+ Good+ Extension (L3) 4+ Good+ Left Flexion (S2) 4+ Good+ Extension (L3) 4+ Good+ Ankle/Foot Strength Ankle and Foot Manual Muscle Testing Right Dorsiflexion (L4) 4+ Good+ Plantarflexion (S1) 4+ Good+ Left Dorsiflexion (L4) 4+ Good+ Plantarflexion (S1) 4+ Good+ PT-OP-Q Treatments Start: 04/02/21 17:30 Freq: Status: Active Protocol: Document 05/14/21 09:55 SP (Rec: 05/14/21 10:33 SP [id number]) Gym Equipment Therapeutic Ball Hip/knee flexion Exercise Details Flexion vs resistance Ball Size/Color Red - 55 cm Lv 3 T-band Body Position Supine Reps/Duration x10 Comments good adductor/hip flexor muscle soreness but more tingling B anterior thigh going over knees, so stoopped Bridging Exercise Details Bridging /c feet on ball Ball Size/Color Red - 55 cm Body Position Supine Reps/Duration 5 reps x5 sets Comments cued TA segmantal lift x5- good slow movement. LTR Exercise Details LTR Ball Size/Color Red - 55 cm Body Position Supine Reps/Duration x10 Comments good TA and form, pain free, little nocticable ache in R HS during R LS rotation Therapeutic Exercises Supine Exercises Matteo stretch Side bilateral Reps/Minutes 60s Comments good feedback stretch, cued neutral pelvis and TA aware for spinal align. pirformis stretch Side bilateral Reps/Minutes 30 x2 Comments no significant change in tingling. Manual Therapy Treatment Soft Tissue Mobilization Psoas, ilicus Body Location B Mobilization Type Myofascial Release,Sustained Pressure Intensity/Depth Moderate Body Position Hooklying Comments manual, cued gentle pressure with breath good tolerance pressure lumbar paraspinals, glutes Body Location R lumbar paraspinals, R piriformis, R glut med Mobilization Type Rolling,Strumming,Sustained Pressure Intensity/Depth Moderate Body Position Prone Comments mentioned has a little shocking on L but almost gone PT-OP-T Assessment and Plan Start: 04/02/21 17:30 Freq: Status: Active Protocol: Document 05/14/21 09:55 SP (Rec: 05/14/21 10:33 SP [id number]) Physical Therapy Assessment Goals Two Impairment Pt experiences increased posterior R thigh pain with movement Glass Sander Belt Goal (LTG) Pt to perform 100% of daily activities without increased leg pain. LTG Duration 06/01/21 One Impairment Pt does not have an appropriate home exercise program Short Term Goal (STG) Pt to be independent and compliant with an appropriate HEP STG Duration 04/30/21 Assessment Summary Assessment Pt reported decreased LB pain into extension alot less and not so tight when leans back in standing post manual and segmental spinal TA ther ex. Physical Therapy Plan Frequency and Duration Frequency of Treatment 2x/Week Duration of Treatment Two months Plan of Care Start Date 04/03/21 Plan of Care End Date 06/01/21 Therapeutic Interventions Therapeutic Interventions Aquatic Therapy,Gait Training, Home Exercise Program,Manual Therapy,Neuromuscular Re- education,Patient/Caregiver Education,Self-Care/Home Management,Soft Tissue Mobilization,Therapeutic Activities,Therapeutic Exercises Modalities Cold Pack/Ice Massage,Electric Stimulation,Hot Packs, Ultrasound Next Visit Focus/Plan Next Note Type Treatment Note Next Visit Plan Next tx: review resisted shld ext and matteo stretch added previous txs for core strengthening and mobility stabilization. POC: lumbar mobility, core/ back strengthening and stability
--- NOTE | 2021-05-20 16:00 | PT.OTN ---
Current Diagnoses Radiculopathy, lumbar region (05/20/21) Sciatica, right side (05/20/21) Other specified postprocedural states (05/20/21) Physical Therapy Treatment Note PT-OP-A Visit Information Start: 04/02/21 17:30 Freq: Status: Active Protocol: Document 05/20/21 15:18 DCW (Rec: 05/20/21 16:00 DCW [id number]) Out-Patient Physical Therapy Visit Information Visit Information Visit Type Treatment Note Visit Start Time 15:18 Visit Stop Time 16:00 Total Visit Minutes 42 Visit Number 12 Number of [employer] [place] HISTORY PROFESSOR Visits 0 Evaluation Information Evaluation Date 04/02/21 PT-OP-B Current Condition Start: 04/02/21 17:30 Freq: Status: Active Protocol: Document 04/02/21 16:05 DCW (Rec: 04/03/21 15:45 DCW [id number]) Current Condition History of Current Condition Onset Date 12/06/20 Current Complaints Sciatic nerve pain along right thigh History of Current Condition Pt is a 30 year old female presenting four months s/p L5- S1 discectomy. Pt had been in physical therapy previously last year, but after an MRI showed a significant disc herniation, pt opted for surgical intervention. Pt returns now following surgery on 12/06/20 with substantial improvement in mobility, pain, and range of motion, however continue to experience occasional sciatic pain from her low back down her posterior right thigh. Pt was referred by her surgeon in hopes to work on some sciatic flossing to help improve pain and break up adhesions. 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 Treatment Goals Patient/Caregiver Goals Improve sciatic nerve mobility , decrease pain PT-OP-C Subjective Start: 04/02/21 17:30 Freq: Status: Active Protocol: Document 05/20/21 15:18 DCW (Rec: 05/20/21 16:00 DCW [id number]) OP-PT Subjective Patient Comments Patient Comments Pt reports last Thursday her son was throwing a fit and she tried to hug him, and in doing so, he thrashed away, hitting her thumb with his head, jamming her thumb. X- rays revealed a likely wrist fracture. Pt has a follow-up with Ortho Thursday to determine next step. Pt comes in today with a forearm splint and shoulder sling . PT-OP-F Manual Assessment Start: 04/02/21 17:30 Freq: Status: Active Protocol: Document 04/02/21 16:05 DCW (Rec: 04/03/21 15:45 DCW [id number]) Manual Assessments Soft Tissue Assessment Soft Tissue Mobility Assessment Pt notes some loss of light touch sensation right low back , along QL. Joint Mobility Assessment Joint Mobility Assessment Hypermobility in all joints PT-OP-K Range of Motion Start: 04/02/21 17:30 Freq: Status: Active Protocol: Document 04/02/21 16:05 DCW (Rec: 04/03/21 11:15 DCW [id number]) Lumbar Spine Range of Motion Lumbar Spine Active Comments Pt exhibits hypermobility in all areas, able to bend forward with fully extended knees and place hands flat on floor. Pt also shows lateral flexion bilaterally with hands going 5 cm past knee joint line. PT-OP-L Special Tests Start: 04/02/21 17:30 Freq: Status: Active Protocol: Document 04/02/21 16:05 DCW (Rec: 04/03/21 11:15 DCW [id number]) Special Tests Lumbar Spine Special Tests RICHARD Test Results Negative Straight Leg Raise Test Results Negative Standing Flexion Test Results Negative A-P Shearing Test Results Negative Slump Test Results Strongly positive R PT-OP-M Strength Start: 04/02/21 17:30 Freq: Status: Active Protocol: Document 04/02/21 16:05 DCW (Rec: 04/03/21 11:15 DCW [id number]) Hip Strength Hip Manual Muscle Testing Right Flexion (L2) 4 Good Extension (S1) 4- Good- Abduction 5 Normal Adduction 5 Normal External Rotation 4+ Good+ Internal Rotation 4- Good- Left Flexion (L2) 5 Normal Extension (S1) 5 Normal Abduction 5 Normal Adduction 5 Normal External Rotation 4+ Good+ Internal Rotation 4+ Good+ Knee Strength Knee Manual Muscle Testing Right Flexion (S2) 4+ Good+ Extension (L3) 4+ Good+ Left Flexion (S2) 4+ Good+ Extension (L3) 4+ Good+ Ankle/Foot Strength Ankle and Foot Manual Muscle Testing Right Dorsiflexion (L4) 4+ Good+ Plantarflexion (S1) 4+ Good+ Left Dorsiflexion (L4) 4+ Good+ Plantarflexion (S1) 4+ Good+ PT-OP-Q Treatments Start: 04/02/21 17:30 Freq: Status: Active Protocol: Document 05/20/21 15:18 DCW (Rec: 05/20/21 16:00 DCW [id number]) Cardio Equipment Recumbent Elliptical (Biodex) Duration (Minutes) 5 Resistance 5 Seat Position 8 Therapeutic Exercises Supine Exercises pirformis stretch Side bilateral Reps/Minutes 30 x2 Comments no significant change in tingling. 1 Supine Exercise Name Sciatic nerve glide Side bilateral Reps/Minutes x10 Manual Therapy Treatment Soft Tissue Mobilization Psoas, ilicus Body Location B Mobilization Type Myofascial Release,Sustained Pressure Intensity/Depth Moderate Body Position Hooklying Comments manual, cued gentle pressure with breath good tolerance pressure lumbar paraspinals, glutes Body Location R lumbar paraspinals, R piriformis, R glut med Mobilization Type Rolling,Strumming,Sustained Pressure Intensity/Depth Moderate Body Position Prone PT-OP-T Assessment and Plan Start: 04/02/21 17:30 Freq: Status: Active Protocol: Document 05/20/21 15:18 DCW (Rec: 05/20/21 16:00 DCW [id number]) Physical Therapy Assessment Goals Two Impairment Pt experiences increased posterior R thigh pain with movement Payroll Officer Goal (LTG) Pt to perform 100% of daily activities without increased leg pain. LTG Duration 06/01/21 One Impairment Pt does not have an appropriate home exercise program Short Term Goal (STG) Pt to be independent and compliant with an appropriate HEP STG Duration 04/30/21 Assessment Summary Assessment Pt doing okay overall, has been limited with her activity level since her wrist fracture, which incidentally has helped some with keeping her back from flaring up as much as usual. Physical Therapy Plan Frequency and Duration Frequency of Treatment 2x/Week Duration of Treatment Two months Plan of Care Start Date 04/03/21 Plan of Care End Date 06/01/21 Therapeutic Interventions Therapeutic Interventions Aquatic Therapy,Gait Training, Home Exercise Program,Manual Therapy,Neuromuscular Re- education,Patient/Caregiver Education,Self-Care/Home Management,Soft Tissue Mobilization,Therapeutic Activities,Therapeutic Exercises Modalities Cold Pack/Ice Massage,Electric Stimulation,Hot Packs, Ultrasound Next Visit Focus/Plan Next Note Type Treatment Note Next Visit Plan Next tx: review resisted shld ext and ruben stretch added previous txs for core strengthening and mobility stabilization. POC: lumbar mobility, core/ back strengthening and stability
--- NOTE | 2021-05-24 10:33 | PT.OTN ---
Current Diagnoses Radiculopathy, lumbar region (05/24/21) Sciatica, right side (05/24/21) Other specified postprocedural states (05/24/21) Physical Therapy Treatment Note PT-OP-A Visit Information Start: 04/02/21 17:30 Freq: Status: Active Protocol: Document 05/24/21 09:46 SP (Rec: 05/24/21 10:34 SP [id number]) Out-Patient Physical Therapy Visit Information Visit Information Visit Type Treatment Note Visit Start Time 09:46 Visit Stop Time 10:33 Total Visit Minutes 47 Visit Number 13 Number of PAIRING MACHINE OPERATOR Visits 1 Evaluation Information Evaluation Date 04/02/21 PT-OP-B Current Condition Start: 04/02/21 17:30 Freq: Status: Active Protocol: Document 04/02/21 16:05 DCW (Rec: 04/03/21 15:45 DCW [id number]) Current Condition History of Current Condition Onset Date 12/06/20 Current Complaints Sciatic nerve pain along right thigh History of Current Condition Pt is a 30 year old female presenting four months s/p L5- S1 discectomy. Pt had been in physical therapy previously last year, but after an MRI showed a significant disc herniation, pt opted for surgical intervention. Pt returns now following surgery on 12/06/20 with substantial improvement in mobility, pain, and range of motion, however continue to experience occasional sciatic pain from her low back down her posterior right thigh. Pt was referred by her surgeon in hopes to work on some sciatic flossing to help improve pain and break up adhesions. 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 Treatment Goals Patient/Caregiver Goals Improve sciatic nerve mobility , decrease pain PT-OP-C Subjective Start: 04/02/21 17:30 Freq: Status: Active Protocol: Document 05/24/21 09:46 SP (Rec: 05/24/21 10:34 SP [id number]) OP-PT Subjective Patient Comments Patient Comments Pt reported sling DC for RUE and has thumb splint by [facility] with prescription for 1st MCP immobilizer splint at [facility]. Wearing for 3 mo but ok to do ROM other fingers. Otherwise LBP into B glut into legs sore achiness. PT-OP-F Manual Assessment Start: 04/02/21 17:30 Freq: Status: Active Protocol: Document 04/02/21 16:05 DCW (Rec: 04/03/21 15:45 DCW [id number]) Manual Assessments Soft Tissue Assessment Soft Tissue Mobility Assessment Pt notes some loss of light touch sensation right low back , along QL. Joint Mobility Assessment Joint Mobility Assessment Hypermobility in all joints PT-OP-K Range of Motion Start: 04/02/21 17:30 Freq: Status: Active Protocol: Document 04/02/21 16:05 DCW (Rec: 04/03/21 11:15 DCW [id number]) Lumbar Spine Range of Motion Lumbar Spine Active Comments Pt exhibits hypermobility in all areas, able to bend forward with fully extended knees and place hands flat on floor. Pt also shows lateral flexion bilaterally with hands going 5 cm past knee joint line. PT-OP-L Special Tests Start: 04/02/21 17:30 Freq: Status: Active Protocol: Document 04/02/21 16:05 DCW (Rec: 04/03/21 11:15 DCW [id number]) Special Tests Lumbar Spine Special Tests RICHARD Test Results Negative Straight Leg Raise Test Results Negative Standing Flexion Test Results Negative A-P Shearing Test Results Negative Slump Test Results Strongly positive R PT-OP-M Strength Start: 04/02/21 17:30 Freq: Status: Active Protocol: Document 04/02/21 16:05 DCW (Rec: 04/03/21 11:15 DCW [id number]) Hip Strength Hip Manual Muscle Testing Right Flexion (L2) 4 Good Extension (S1) 4- Good- Abduction 5 Normal Adduction 5 Normal External Rotation 4+ Good+ Internal Rotation 4- Good- Left Flexion (L2) 5 Normal Extension (S1) 5 Normal Abduction 5 Normal Adduction 5 Normal External Rotation 4+ Good+ Internal Rotation 4+ Good+ Knee Strength Knee Manual Muscle Testing Right Flexion (S2) 4+ Good+ Extension (L3) 4+ Good+ Left Flexion (S2) 4+ Good+ Extension (L3) 4+ Good+ Ankle/Foot Strength Ankle and Foot Manual Muscle Testing Right Dorsiflexion (L4) 4+ Good+ Plantarflexion (S1) 4+ Good+ Left Dorsiflexion (L4) 4+ Good+ Plantarflexion (S1) 4+ Good+ PT-OP-Q Treatments Start: 04/02/21 17:30 Freq: Status: Active Protocol: Document 05/24/21 09:46 SP (Rec: 05/24/21 10:34 SP [id number]) Cardio Equipment Recumbent Elliptical (Biodex) Duration (Minutes) 6 Resistance 5 Seat Position see 6 Other LEs only, total steps 455 Gym Equipment Shuttle Balance red clips Details WBOS, NBOS Reps/Duration 3 min Comments wt shift f/b- CGA- 10%A cues for body and trunk positioning , good core/ hip abd reported response. Therapeutic Ball Hip/knee flexion Exercise Details Flexion vs resistance Ball Size/Color Red - 55 cm Lv 3 T-band- (provided for home) Body Position Supine Reps/Duration x10 Comments good adductor/hip flexor muscle soreness but more tingling B anterior thigh going over knees. LTR Exercise Details LTR Ball Size/Color Red - 55 cm Body Position Supine Reps/Duration x10 Comments good TA and form, pelvic tilt Exercise Details PPT, Lateral tilts, march, trunk flex/ext/SB (L3 TB) Ball Size/Color 65 cm- green Body Position Sitting Reps/Duration x20 each direction supine, x10 reps seated Comments -good feedback response -cued core march/ trunk SB/ext /flex (around trunk ttherapist hold but verbalized understanding how anchor in door can do at home), contact table stability as needed, states little tingle anterior thighs but likes the added resistance to progress at home in core. Manual Therapy Treatment Soft Tissue Mobilization lumbar paraspinals, glutes Body Location B lumbar paraspinals, B piriformis, B glut med Mobilization Type Rolling,Strumming,Sustained Pressure Intensity/Depth Moderate Body Position Prone Comments L Paraspinal most tense, pt good feedback results, decreased tightness post manual. Pt stated will use MHP when gets home later. PT-OP-T Assessment and Plan Start: 04/02/21 17:30 Freq: Status: Active Protocol: Document 05/24/21 09:46 SP (Rec: 05/24/21 10:34 SP [id number]) Physical Therapy Assessment Goals Two Impairment Pt experiences increased posterior R thigh pain with movement Mcfp Goal (LTG) Pt to perform 100% of daily activities without increased leg pain. LTG Duration 06/01/21 One Impairment Pt does not have an appropriate home exercise program Short Term Goal (STG) Pt to be independent and compliant with an appropriate HEP STG Duration 04/30/21 Assessment Summary Assessment Pt unable to perform core UE assisted ther ex due to R wrist fx and thumb imobilizer donned. She reports with activity during tx gets increased tingling bike> ther ex as ususally get during tx but feels helping her strength . Pt improved core, hip abd facilitation with ability to continue at home with TB provided seated and supine with understanding on set up/ performance. Physical Therapy Plan Frequency and Duration Frequency of Treatment 2x/Week Duration of Treatment Two months Plan of Care Start Date 04/03/21 Plan of Care End Date 06/01/21 Therapeutic Interventions Therapeutic Interventions Aquatic Therapy,Gait Training, Home Exercise Program,Manual Therapy,Neuromuscular Re- education,Patient/Caregiver Education,Self-Care/Home Management,Soft Tissue Mobilization,Therapeutic Activities,Therapeutic Exercises Modalities Cold Pack/Ice Massage,Electric Stimulation,Hot Packs, Ultrasound Next Visit Focus/Plan Next Note Type Treatment Note Next Visit Plan Next tx: review supine/ seated Tball core HEP added last tx. POC: lumbar mobility, core/ back strengthening and stability
--- NOTE | 2021-05-27 13:48 | PT.OTN ---
Current Diagnoses Radiculopathy, lumbar region (05/27/21) Sciatica, right side (05/27/21) Other specified postprocedural states (05/27/21) Physical Therapy Treatment Note PT-OP-A Visit Information Start: 04/02/21 17:30 Freq: Status: Active Protocol: Document 05/27/21 13:02 SP (Rec: 05/27/21 14:17 SP [id number]) Out-Patient Physical Therapy Visit Information Visit Information Visit Type Treatment Note Visit Note PN due next tx: POC Expires . Visit Start Time 13:02 Visit Stop Time 13:48 Total Visit Minutes 46 Visit Number 14 Number of WORSHIP DIRECTOR Visits 2 Evaluation Information Evaluation Date 04/02/21 PT-OP-B Current Condition Start: 04/02/21 17:30 Freq: Status: Active Protocol: Document 04/02/21 16:05 DCW (Rec: 04/03/21 15:45 DCW [id number]) Current Condition History of Current Condition Onset Date 12/06/20 Current Complaints Sciatic nerve pain along right thigh History of Current Condition Pt is a 30 year old female presenting four months s/p L5- S1 discectomy. Pt had been in physical therapy previously last year, but after an MRI showed a significant disc herniation, pt opted for surgical intervention. Pt returns now following surgery on 12/06/20 with substantial improvement in mobility, pain, and range of motion, however continue to experience occasional sciatic pain from her low back down her posterior right thigh. Pt was referred by her surgeon in hopes to work on some sciatic flossing to help improve pain and break up adhesions. 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 Treatment Goals Patient/Caregiver Goals Improve sciatic nerve mobility , decrease pain PT-OP-C Subjective Start: 04/02/21 17:30 Freq: Status: Active Protocol: Document 05/27/21 13:02 SP (Rec: 05/27/21 14:17 SP [id number]) OP-PT Subjective Patient Comments Patient Comments Pt reported 2/10 pain and tingling LB into bottocks down back mid thighs. Yesterday had new numbness of whole R foot, was carrying very light lamp short distance cross son' s room and when pivoted R (try keep conscious even BLE WB turn) after put down had numbness feeling dorsal and plantar surface up to anterior med/ lat Malleolus and down R foot and toes. ALso happened walking around [employer] and worsened with time there 50- 60 min and had to stop more often to performed ankle ROM hoping get feeling back in R foot but didn't go away until once in car after 15 min seated. Pt has MRI and EMG coming up next week for futher assessment of tingling. PT-OP-F Manual Assessment Start: 04/02/21 17:30 Freq: Status: Active Protocol: Document 04/02/21 16:05 DCW (Rec: 04/03/21 15:45 DCW [id number]) Manual Assessments Soft Tissue Assessment Soft Tissue Mobility Assessment Pt notes some loss of light touch sensation right low back , along QL. Joint Mobility Assessment Joint Mobility Assessment Hypermobility in all joints PT-OP-K Range of Motion Start: 04/02/21 17:30 Freq: Status: Active Protocol: Document 04/02/21 16:05 DCW (Rec: 04/03/21 11:15 DCW [id number]) Lumbar Spine Range of Motion Lumbar Spine Active Comments Pt exhibits hypermobility in all areas, able to bend forward with fully extended knees and place hands flat on floor. Pt also shows lateral flexion bilaterally with hands going 5 cm past knee joint line. PT-OP-L Special Tests Start: 04/02/21 17:30 Freq: Status: Active Protocol: Document 04/02/21 16:05 DCW (Rec: 04/03/21 11:15 DCW [id number]) Special Tests Lumbar Spine Special Tests RICHARD Test Results Negative Straight Leg Raise Test Results Negative Standing Flexion Test Results Negative A-P Shearing Test Results Negative Slump Test Results Strongly positive R PT-OP-M Strength Start: 04/02/21 17:30 Freq: Status: Active Protocol: Document 04/02/21 16:05 DCW (Rec: 04/03/21 11:15 DCW [id number]) Hip Strength Hip Manual Muscle Testing Right Flexion (L2) 4 Good Extension (S1) 4- Good- Abduction 5 Normal Adduction 5 Normal External Rotation 4+ Good+ Internal Rotation 4- Good- Left Flexion (L2) 5 Normal Extension (S1) 5 Normal Abduction 5 Normal Adduction 5 Normal External Rotation 4+ Good+ Internal Rotation 4+ Good+ Knee Strength Knee Manual Muscle Testing Right Flexion (S2) 4+ Good+ Extension (L3) 4+ Good+ Left Flexion (S2) 4+ Good+ Extension (L3) 4+ Good+ Ankle/Foot Strength Ankle and Foot Manual Muscle Testing Right Dorsiflexion (L4) 4+ Good+ Plantarflexion (S1) 4+ Good+ Left Dorsiflexion (L4) 4+ Good+ Plantarflexion (S1) 4+ Good+ PT-OP-Q Treatments Start: 04/02/21 17:30 Freq: Status: Active Protocol: Document 05/27/21 13:02 SP (Rec: 05/27/21 14:17 SP [id number]) Gym Equipment Therapeutic Ball Hip/knee flexion Exercise Details Flexion vs resistance Ball Size/Color Red - 55 cm Lv 3 T-band- (provided for home) Body Position Supine Reps/Duration x10 Comments adductor/hip flexor muscle soreness/tiring, increased tingling B anterior thighs so stopped Bridging Exercise Details Bridging /c feet on ball Ball Size/Color Red - 55 cm Body Position Supine Reps/Duration 5 reps only today Comments cued TA segmental lift x5- good slow movement. LTR Exercise Details LTR Ball Size/Color Red - 55 cm Body Position Supine Reps/Duration x10 Comments Level #3 TB (added last tx), good TA and slow pacing form. pelvic tilt Exercise Details PPT neutral, trunk flex/ext/SB (L3 TB) Ball Size/Color 55 cm- green Body Position Sitting Reps/Duration x10 reps seated Comments -good feedback response -cued core trunk SB/ext/flex ( around trunk therapist hold), contact chair stability as needed, states little more pressure on LS during retro lean. WORSHIP DIRECTOR recommended not do retro lean at home. Therapeutic Exercises Supine Exercises LTR stretch Supine Exercise Name post manual Side bilateral Resistance AROM stretch Reps/Minutes 30 x2 Comments Pt states more stiff L trunk rotation close to spine into L buttocks Manual Therapy Treatment Soft Tissue Mobilization lumbar paraspinals, glutes Body Location B lumbar paraspinals, B piriformis, B glut med Mobilization Type Rolling,Strumming,Sustained Pressure Intensity/Depth Moderate Body Position Prone Comments L Paraspinal most tense, pt good feedback results, decreased tightness post manual. Pt stated will use MHP when gets home later. Manual Traction Lumbar Body Position Hooklying Reps/Duration 1 min x 3 Comments with strap around calves Neuro Re-Education Treatment Balance Activities obstacle course Details balance recovery w/ core and hip abd fac Surface firm> uneven Equipment 6 hurdles, blue foam cushions, 2 pods Reps/Duration 2 laps, CGA Comments noted B ankle and hip abd unsteady weaknes especially on pods midstance phase but no LOB. PT-OP-T Assessment and Plan Start: 04/02/21 17:30 Freq: Status: Active Protocol: Document 05/27/21 13:02 SP (Rec: 05/27/21 14:17 SP [id number]) Physical Therapy Assessment Goals Two Impairment Pt experiences increased posterior R thigh pain with movement Loom Stop Checker Goal (LTG) Pt to perform 100% of daily activities without increased leg pain. 05/27/21: progressing: pt continues to have R leg pain, tingling and recently over weekend R foot going numb. MRI and EMG scheduled next week. LTG Duration 06/01/21 progressing One Impairment Pt does not have an appropriate home exercise program Short Term Goal (STG) Pt to be independent and compliant with an appropriate HEP 05/27/21: pt able to progress with supine and added seated core tb activity. STG Duration 04/30/21 progressing Assessment Summary Assessment Pt reported decrease tension in LS but no significant change in tingling into BLE, feels like have some more releases with abdominal work as well this tx. Good response to uneven obstacle course. Pt has MRI and EMG coming up next week for futher assessment of tingling. Physical Therapy Plan Frequency and Duration Frequency of Treatment 2x/Week Duration of Treatment Two months Plan of Care Start Date 04/03/21 Plan of Care End Date 06/01/21 Therapeutic Interventions Therapeutic Interventions Aquatic Therapy,Gait Training, Home Exercise Program,Manual Therapy,Neuromuscular Re- education,Patient/Caregiver Education,Self-Care/Home Management,Soft Tissue Mobilization,Therapeutic Activities,Therapeutic Exercises Modalities Cold Pack/Ice Massage,Electric Stimulation,Hot Packs, Ultrasound Next Visit Focus/Plan Next Note Type Treatment Note Next Visit Plan PN/ POC update next appt Next tx: progress standing functional core/ back strength /stability. POC: lumbar mobility, core/ back strengthening and stability
--- NOTE | 2021-06-03 16:06 | PT.OTN ---
Current Diagnoses Radiculopathy, lumbar region (06/03/21) Sciatica, right side (06/03/21) Other specified postprocedural states (06/03/21) Physical Therapy Treatment Note PT-OP-A Visit Information Start: 04/02/21 17:30 Freq: Status: Active Protocol: Document 06/03/21 15:16 DCW (Rec: 06/03/21 16:06 DCW [id number]) Out-Patient Physical Therapy Visit Information Visit Information Visit Type Progress Note Visit Start Time 15:16 Visit Stop Time 16:00 Total Visit Minutes 44 Visit Number 15 Number of ASSOCIATE PROPERTY MANAGER Visits 0 Evaluation Information Evaluation Date 04/02/21 PT-OP-B Current Condition Start: 04/02/21 17:30 Freq: Status: Active Protocol: Document 04/02/21 16:05 DCW (Rec: 04/03/21 15:45 DCW [id number]) Current Condition History of Current Condition Onset Date 12/06/20 Current Complaints Sciatic nerve pain along right thigh History of Current Condition Pt is a 30 year old female presenting four months s/p L5- S1 discectomy. Pt had been in physical therapy previously last year, but after an MRI showed a significant disc herniation, pt opted for surgical intervention. Pt returns now following surgery on 12/06/20 with substantial improvement in mobility, pain, and range of motion, however continue to experience occasional sciatic pain from her low back down her posterior right thigh. Pt was referred by her surgeon in hopes to work on some sciatic flossing to help improve pain and break up adhesions. 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 Treatment Goals Patient/Caregiver Goals Improve sciatic nerve mobility , decrease pain PT-OP-C Subjective Start: 04/02/21 17:30 Freq: Status: Active Protocol: Document 06/03/21 15:16 DCW (Rec: 06/03/21 16:06 DCW [id number]) OP-PT Subjective Patient Comments Patient Comments Pt arrives today with new MRI results, notes that she has now a return of the L5 disc bulge that had been surgically repaired, as well as a new bulge at L4. Additionally, per pt report, her nerve study showed areas for concern, and it was recommended she get scheduled for further testing, including likely nerve and muscle biopsy. PT-OP-F Manual Assessment Start: 04/02/21 17:30 Freq: Status: Active Protocol: Document 06/03/21 15:16 DCW (Rec: 06/03/21 15:32 DCW [id number]) Manual Assessments Soft Tissue Assessment Soft Tissue Mobility Assessment Pt notes some loss of light touch sensation right low back , along QL. Joint Mobility Assessment Joint Mobility Assessment Hypermobility in all joints PT-OP-K Range of Motion Start: 04/02/21 17:30 Freq: Status: Active Protocol: Document 06/03/21 15:16 DCW (Rec: 06/03/21 15:34 DCW [id number]) Lumbar Spine Range of Motion Lumbar Spine Active Comments Previously pt could bend forward and place hands on the floor, currently pt can bend forward, and fingertips only reach to mid-christianson PT-OP-L Special Tests Start: 04/02/21 17:30 Freq: Status: Active Protocol: Document 06/03/21 15:16 DCW (Rec: 06/03/21 15:32 DCW [id number]) Special Tests Lumbar Spine Special Tests Slump Test Results Strongly positive R PT-OP-M Strength Start: 04/02/21 17:30 Freq: Status: Active Protocol: Document 06/03/21 15:16 DCW (Rec: 06/03/21 15:32 DCW [id number]) Hip Strength Hip Manual Muscle Testing Right Flexion (L2) 4- Good- Extension (S1) 4- Good- Abduction 4- Good- Adduction 4- Good- External Rotation 4+ Good+ Internal Rotation 4- Good- Left Flexion (L2) 5 Normal Extension (S1) 5 Normal Abduction 5 Normal Adduction 5 Normal External Rotation 4+ Good+ Internal Rotation 4+ Good+ Knee Strength Knee Manual Muscle Testing Right Flexion (S2) 4 Good Extension (L3) 4 Good Left Flexion (S2) 4+ Good+ Extension (L3) 4+ Good+ Ankle/Foot Strength Ankle and Foot Manual Muscle Testing Right Dorsiflexion (L4) 4+ Good+ Plantarflexion (S1) 4+ Good+ Left Dorsiflexion (L4) 4+ Good+ Plantarflexion (S1) 4+ Good+ PT-OP-Q Treatments Start: 04/02/21 17:30 Freq: Status: Active Protocol: Document 06/03/21 15:16 DCW (Rec: 06/03/21 16:06 DCW [id number]) Therapeutic Exercises Supine Exercises Matteo stretch Side bilateral Reps/Minutes 60s Comments good feedback stretch, cued neutral pelvis and TA aware for spinal align. pirformis stretch Side bilateral Reps/Minutes 30 x2 Comments no significant change in tingling. Manual Therapy Treatment Manual Traction Lumbar Body Position Hooklying Comments with strap around calves PT-OP-T Assessment and Plan Start: 04/02/21 17:30 Freq: Status: Active Protocol: Document 06/03/21 15:16 DCW (Rec: 06/03/21 16:06 DCW [id number]) Physical Therapy Assessment Impairments Impairments Functional Activities, Functional Mobility,Pain Goals Two Impairment Pt experiences increased posterior R thigh pain with movement Finisher Accordion Goal (LTG) Pt to perform 100% of daily activities without increased leg pain. 05/27/21: progressing: pt continues to have R leg pain, tingling and recently over weekend R foot going numb. MRI and EMG scheduled next week. LTG Duration 06/01/21 progressing One Impairment Pt does not have an appropriate home exercise program Short Term Goal (STG) Pt to be independent and compliant with an appropriate HEP 05/27/21: pt able to progress with supine and added seated core tb activity. STG Duration 04/30/21 progressing Assessment Summary Assessment Pt overall has suffered a decline in function recently, increased pain, lowered mobility. MRI confirms worsening of L5 disc bulge despite surgery, and now new L4 bulge. Pt presents with decreased R LE strength as well. Pt has follow-up with ortho June 26. Does not appear to be benefitting from skilled PT. Pt will be discharged at this time, will require a new referral in order to return to physical therapy Physical Therapy Plan Frequency and Duration Frequency of Treatment 1x/Week Duration of Treatment 1 day Plan of Care Start Date 06/03/21 Plan of Care End Date 06/04/21 Therapeutic Interventions Therapeutic Interventions Aquatic Therapy,Gait Training, Home Exercise Program,Manual Therapy,Neuromuscular Re- education,Patient/Caregiver Education,Self-Care/Home Management,Soft Tissue Mobilization,Therapeutic Activities,Therapeutic Exercises Modalities Cold Pack/Ice Massage,Electric Stimulation,Hot Packs, Ultrasound Discharge Physical Therapy Discharge Reasons Change in Medical Status Next Visit Focus/Plan Next Note Type Discharge Summary
--- NOTE | 2021-06-03 16:16 | PT.OPPOC ---
Physical, Occupational & Speech Therapy At [facility] Current Diagnoses Radiculopathy, lumbar region (06/03/21) Sciatica, right side (06/03/21) Other specified postprocedural states (06/03/21) Visit Care Team Role Provider Type Sindhu Gonzalez PA-C Family Provider Non-Staff Primary Care Provider Specialty: Medical Address: [address] , [place], [address] Email: Rosario Lin PA-C Attending Provider Non-Staff Referring Provider Specialty: Orthopedic Surgery Address: [address], [place], [address] Email: [email or web address] Plan Of Care PT-OP-T Assessment and Plan Start: 04/02/21 17:30 Freq: Status: Active Protocol: Document 06/03/21 15:16 DCW (Rec: 06/03/21 16:06 DCW [id number]) Physical Therapy Assessment Impairments Impairments Functional Activities, Functional Mobility,Pain Goals Two Impairment Pt experiences increased posterior R thigh pain with movement Case Planner Goal (LTG) Pt to perform 100% of daily activities without increased leg pain. 05/27/21: progressing: pt continues to have R leg pain, tingling and recently over weekend R foot going numb. MRI and EMG scheduled next week. LTG Duration 06/01/21 progressing One Impairment Pt does not have an appropriate home exercise program Short Term Goal (STG) Pt to be independent and compliant with an appropriate HEP 05/27/21: pt able to progress with supine and added seated core tb activity. STG Duration 04/30/21 progressing Assessment Summary Assessment Pt overall has suffered a decline in function recently, increased pain, lowered mobility. MRI confirms worsening of L5 disc bulge despite surgery, and now new L4 bulge. Pt presents with decreased R LE strength as well. Pt has follow-up with ortho June 26. Does not appear to be benefitting from skilled PT. Pt will be discharged at this time, will require a new referral in order to return to physical therapy Physical Therapy Plan Frequency and Duration Frequency of Treatment 1x/Week Duration of Treatment 1 day Plan of Care Start Date 06/03/21 Plan of Care End Date 06/04/21 Therapeutic Interventions Therapeutic Interventions Aquatic Therapy,Gait Training, Home Exercise Program,Manual Therapy,Neuromuscular Re- education,Patient/Caregiver Education,Self-Care/Home Management,Soft Tissue Mobilization,Therapeutic Activities,Therapeutic Exercises Modalities Cold Pack/Ice Massage,Electric Stimulation,Hot Packs, Ultrasound Discharge Physical Therapy Discharge Reasons Change in Medical Status Next Visit Focus/Plan Next Note Type Discharge Summary Plan of Care Dates Plan of Care Start Date 06/03/21 Plan of Care End Date 06/04/21 Electronically Signed by: German Thompson, PT 06/03/21 1550 Please Sign and Return: I have reviewed this Plan of Care and certify that the skilled therapy services above are required to meet the patient?s needs. Physician Signature Date Printed Name and Credentials Clinical Instructor Signature Printed Name and Credentials
--- NOTE | 2021-06-03 16:16 | PT.OPDS ---
Current Diagnoses Radiculopathy, lumbar region (06/03/21) Sciatica, right side (06/03/21) Other specified postprocedural states (06/03/21) Visit Care Team Role Provider Type Sindhu Gonzalez PA-C Family Provider Non-Staff Primary Care Provider Specialty: Medical Address: [address], [place], [address] Email: Rosario Lin PA-C Attending Provider Non-Staff Referring Provider Specialty: Orthopedic Surgery Address: [address] [facility], [place], [address] Email: [email or web address] Visit Number Visit Number 15 Discharge Summary PT-OP-B Current Condition Start: 04/02/21 17:30 Freq: Status: Active Protocol: Document 04/02/21 16:05 DCW (Rec: 04/03/21 15:45 DCW [id number]) Current Condition History of Current Condition Onset Date 12/06/20 Current Complaints Sciatic nerve pain along right thigh History of Current Condition Pt is a 30 year old female presenting four months s/p L5- S1 discectomy. Pt had been in physical therapy previously last year, but after an MRI showed a significant disc herniation, pt opted for surgical intervention. Pt returns now following surgery on 12/06/20 with substantial improvement in mobility, pain, and range of motion, however continue to experience occasional sciatic pain from her low back down her posterior right thigh. Pt was referred by her surgeon in hopes to work on some sciatic flossing to help improve pain and break up adhesions. 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 Treatment Goals Patient/Caregiver Goals Improve sciatic nerve mobility , decrease pain PT-OP-C Subjective Start: 04/02/21 17:30 Freq: Status: Active Protocol: Document 06/03/21 15:16 DCW (Rec: 06/03/21 16:06 DCW [id number]) OP-PT Subjective Patient Comments Patient Comments Pt arrives today with new MRI results, notes that she has now a return of the L5 disc bulge that had been surgically repaired, as well as a new bulge at L4. Additionally, per pt report, her nerve study showed areas for concern, and it was recommended she get scheduled for further testing, including likely nerve and muscle biopsy. PT-OP-F Manual Assessment Start: 04/02/21 17:30 Freq: Status: Active Protocol: Document 06/03/21 15:16 DCW (Rec: 06/03/21 15:32 DCW [id number]) Manual Assessments Soft Tissue Assessment Soft Tissue Mobility Assessment Pt notes some loss of light touch sensation right low back , along QL. Joint Mobility Assessment Joint Mobility Assessment Hypermobility in all joints PT-OP-K Range of Motion Start: 04/02/21 17:30 Freq: Status: Active Protocol: Document 06/03/21 15:16 DCW (Rec: 06/03/21 15:34 DCW [id number]) Lumbar Spine Range of Motion Lumbar Spine Active Comments Previously pt could bend forward and place hands on the floor, currently pt can bend forward, and fingertips only reach to mid-christianson PT-OP-L Special Tests Start: 04/02/21 17:30 Freq: Status: Active Protocol: Document 06/03/21 15:16 DCW (Rec: 06/03/21 15:32 DCW [id number]) Special Tests Lumbar Spine Special Tests Slump Test Results Strongly positive R PT-OP-M Strength Start: 04/02/21 17:30 Freq: Status: Active Protocol: Document 06/03/21 15:16 DCW (Rec: 06/03/21 15:32 DCW [id number]) Hip Strength Hip Manual Muscle Testing Right Flexion (L2) 4- Good- Extension (S1) 4- Good- Abduction 4- Good- Adduction 4- Good- External Rotation 4+ Good+ Internal Rotation 4- Good- Left Flexion (L2) 5 Normal Extension (S1) 5 Normal Abduction 5 Normal Adduction 5 Normal External Rotation 4+ Good+ Internal Rotation 4+ Good+ Knee Strength Knee Manual Muscle Testing Right Flexion (S2) 4 Good Extension (L3) 4 Good Left Flexion (S2) 4+ Good+ Extension (L3) 4+ Good+ Ankle/Foot Strength Ankle and Foot Manual Muscle Testing Right Dorsiflexion (L4) 4+ Good+ Plantarflexion (S1) 4+ Good+ Left Dorsiflexion (L4) 4+ Good+ Plantarflexion (S1) 4+ Good+ PT-OP-T Assessment and Plan Start: 04/02/21 17:30 Freq: Status: Active Protocol: Document 06/03/21 15:16 DCW (Rec: 06/03/21 16:06 DCW [id number]) Physical Therapy Assessment Impairments Impairments Functional Activities, Functional Mobility,Pain Goals Two Impairment Pt experiences increased posterior R thigh pain with movement Manager Data Warehousing Goal (LTG) Pt to perform 100% of daily activities without increased leg pain. 05/27/21: progressing: pt continues to have R leg pain, tingling and recently over weekend R foot going numb. MRI and EMG scheduled next week. LTG Duration 06/01/21 progressing One Impairment Pt does not have an appropriate home exercise program Short Term Goal (STG) Pt to be independent and compliant with an appropriate HEP 05/27/21: pt able to progress with supine and added seated core tb activity. STG Duration 04/30/21 progressing Assessment Summary Assessment Pt overall has suffered a decline in function recently, increased pain, lowered mobility. MRI confirms worsening of L5 disc bulge despite surgery, and now new L4 bulge. Pt presents with decreased R LE strength as well. Pt has follow-up with ortho June 26. Does not appear to be benefitting from skilled PT. Pt will be discharged at this time, will require a new referral in order to return to physical therapy Physical Therapy Plan Frequency and Duration Frequency of Treatment 1x/Week Duration of Treatment 1 day Plan of Care Start Date 06/03/21 Plan of Care End Date 06/04/21 Therapeutic Interventions Therapeutic Interventions Aquatic Therapy,Gait Training, Home Exercise Program,Manual Therapy,Neuromuscular Re- education,Patient/Caregiver Education,Self-Care/Home Management,Soft Tissue Mobilization,Therapeutic Activities,Therapeutic Exercises Modalities Cold Pack/Ice Massage,Electric Stimulation,Hot Packs, Ultrasound Discharge Physical Therapy Discharge Reasons Change in Medical Status Next Visit Focus/Plan Next Note Type Discharge Summary
== END 2021-06-04 11:56 ==
LOC: PHYS 15:15
PROVIDERS: Family Provider Physician Assistant; PCP Physician Assistant; Referring Provider Physician Assistant Surgical; Visit Provider Physician Assistant Surgical
DX: Z98.890 Other specified postprocedural states (principal); M54.16 Radiculopathy, lumbar region; M54.31 Sciatica, right side
CPT/HCPCS: 97110; 97140; 97161

== ENCOUNTER → 2021-07-01 09:23 | Outpatient (CLI) | payer OTHER, MEDICAID, SELFPAY ==
[2021-07-01 13:41] LABS: COVID19 -Nasal RAPID Negative (Negative)
== END ==
PROVIDERS: Family Provider Physician Assistant; PCP Physician Assistant; Visit Provider Family Medicine Sleep Medicine
DX: Z20.822 Contact with and (suspected) exposure to COVID-19 (principal)
CPT/HCPCS: 87635; C9803

== ENCOUNTER → 2021-07-03 13:07 | Outpatient (CLI) | payer OTHER, MEDICAID, SELFPAY ==
--- NOTE | 2021-07-03 | DI.NM.S_ITS ---
PROCEDURE: NM EXERCISE TREADMILL NON NUC COMPARISON: None. INDICATIONS: Chest Pain FINDINGS: The patient exercised for 6 minutes and 0 seconds, 7.0 METs, IVA +38%, reaching 82% of maximum predicted heart rate. No ST changes and no ectopy with exercise. Slight non-diagnostic chest pressure at peak exercise that worsened during early recovery and resolved by the end of recovery. IMPRESSION: Low risk, probably normal treadmill ECG only stress test. No ischemic ECG changes. Non-diagnostic chest pressure at peak exercise that worsened [place] [address], suggesting adequate stress test (even though 82% of maximum predicted heart rate achieved). Dictated by: Mak Rendon MD on 07/04/2021 at 17:18 Approved by: Mak Rendon MD on 07/04/2021 at 17:28
== END ==
PROVIDERS: Family Provider Physician Assistant; PCP Physician Assistant; Referring Provider Internal Medicine Cardiovascular Disease; Visit Provider Internal Medicine Cardiovascular Disease
DX: R07.9 Chest pain, unspecified (principal)
CPT/HCPCS: 93017

== ENCOUNTER → 2021-08-27 18:41 | Outpatient (CLI) | payer OTHER, MEDICAID, SELFPAY | PROVIDERS: Family Provider Physician Assistant; PCP Physician Assistant; Visit Provider Physician Assistant | DX: N89.8 Other specified noninflammatory disorders of vagina (principal) | CPT/HCPCS: 87210 ==

== ENCOUNTER 2021-09-20 13:45 | Outpatient (RCR) | payer OTHER, MEDICAID, SELFPAY ==
--- NOTE | 2021-08-13 16:45 | PT.OPPOC ---
Physical, Occupational & Speech Therapy At [facility] Current Diagnoses Stiffness of other specified joint, not elsewhere classified (08/13/21) Cervicalgia (08/13/21) Muscle weakness (generalized) (08/13/21) Paresthesia of skin (08/13/21) Visit Care Team Role Provider Type Sindhu Gonzalez PA-C Attending Provider Non-Staff Family Provider Primary Care Provider Referring Provider Specialty: Medical Address: [address] [place] [address], [id number] Email: Plan Of Care PT-OP-T Assessment and Plan Start: 08/13/21 17:30 Freq: Status: Active Protocol: Document 08/13/21 16:00 DCW (Rec: 08/14/21 09:49 DCW [id number]) Physical Therapy Assessment Rehab Potential Rehabilitation Potential Fair Evaluation Complexity Number of Personal Factors/Comorbidities 3 or More Number of Body Systems Impaired 4 or More Clinical Presentation at Evaluation Unstable Impairments Impairments Activity Tolerance,Functional Activities,Functional Mobility ,Gait,Pain,Posture,ROM,Soft Tissue Mobility,Strength,Tone, Transfers Goals Three Impairment Weakness in right shoulder MMT , especially IR (3+/5) and flex/abd (4-/5) Mail Order Sorter Goal (LTG) Pt to demonstrate improve UE strength to at least 4/5 in order to demonstrate improved ability to use UEs to support herself while using her 4WW Two Impairment Pt experiences increase shoulder pain lifting right arm >90? flex and abd Mail Order Sorter Goal (LTG) Pt to increase pain-free R shoulder ROM to >140? flexion and abduction in order to improve ability to get down items from cabinets. LTG Duration 11/11/21 One Impairment Pt does not have an appropriate home exercise program Short Term Goal (STG) Pt to be independent and compliant with an appropriate HEP STG Duration 09/12/21 Assessment Summary Assessment Pt presents with moderate- severe muscle tone along right neck and shoulder. Pt has multiple medical conditions which complicate her case, including POTS, Wilbur-Danlos Syndrome, Occipital Neuralgia, Hx Lumbar discectomy, Hx Gastric Bypass, and reports she is currently getting testing for potential Multiple Sclerosis. Pt should benefit from manual therapy and strengthening of her cervical and shoulder musculature, however due to her EDS, expect some increased tone to actually be helpful for stabilization of her c-spine. Pt additionally notes she has been told in the past she has a potential Chiari malformation. Physical Therapy Plan Frequency and Duration Frequency of Treatment 2x/Week Duration of Treatment 90 days Plan of Care Start Date 08/13/21 Plan of Care End Date 11/11/21 Therapeutic Interventions Therapeutic Interventions Aquatic Therapy,Home Exercise Program,Manual Therapy, Neuromuscular Re-education, Patient/Caregiver Education, Self-Care/Home Management,Soft Tissue Mobilization, Therapeutic Activities, Therapeutic Exercises Modalities Cold Pack/Ice Massage,Electric Stimulation,Hot Packs, Ultrasound Next Visit Focus/Plan Next Note Type Treatment Note Next Visit Plan STM, strengthening, ROM Plan of Care Dates Plan of Care Start Date 08/13/21 Plan of Care End Date 11/11/21 Electronically Signed by: German Thompson, PT 08/14/21 0950 If you are in agreement with this Plan of Care, please return a signed and dated copy. I have reviewed this Plan of Care and certify that the skilled therapy services above are required to meet the patient?s needs. Physician Signature Date Printed Name and Credentials Clinical Instructor Signature Printed Name and Credentials
--- NOTE | 2021-08-13 16:45 | PT.OIE ---
Current Diagnoses Stiffness of other specified joint, not elsewhere classified (08/13/21) Cervicalgia (08/13/21) Muscle weakness (generalized) (08/13/21) Paresthesia of skin (08/13/21) Past Medical History (Last Updated 05/15/21 @ 19:07 by Corazon Payne MD) Acute low back pain Wilbur-Danlos disease POTS (postural orthostatic tachycardia syndrome) Past Surgical History (Last Updated 05/15/21 @ 19:07 by Corazon Payne MD) Gastric bypass status for obesity Visit Care Team Role Provider Type Sindhu Gonzalez PA-C Attending Provider Non-Staff Family Provider Primary Care Provider Referring Provider Specialty: Medical Address: [address] [place] [address], [id number] Email: Physical Therapy Initial Evaluation PT-OP-A Visit Information Start: 08/13/21 17:30 Freq: Status: Active Protocol: Document 08/13/21 16:00 DCW (Rec: 08/13/21 17:43 DC [id number]) Out-Patient Physical Therapy Visit Information Visit Information Visit Type Initial Evaluation Visit Start Time 16:00 Visit Stop Time 16:40 Total Visit Minutes 40 Visit Number 1 Number of CUT OUT PRESS OPERATOR Visits 0 Evaluation Information Evaluation Date 08/13/21 PT-OP-B Current Condition Start: 08/13/21 17:30 Freq: Status: Active Protocol: Document 08/13/21 16:00 DCW (Rec: 08/13/21 17:43 DCW [id number]) Current Condition History of Current Condition Onset Date Long-standing history Current Complaints Neck pain/stiffness, radicular arm symptoms History of Current Condition Pt is a 31 year old female well known to this clinic presenting with a long- standing history of cervical pain and stiffness. Pt's case history is complicated by lumbar and thoracic back pain, lumbar surgery, POTS, Wilbur- Danlos Syndrome, as well as pt is currently being testing for multiple various neurological and autoimmune conditions which may help to explain some of her various symptoms. Today, pt is noting pain in her neck and shoulders , particularly in her right shoulder. Pain is caused by just existing, notes it is pretty much constant, however she can reproduce a worse shooting pain down her right arm if she turns her head too quickly. Pt also notes her POTS symptoms seem to be worsening, walks into the clinic using a 4WW, which is a relatively new addition for her, reports she has been falling and fatiguing very quickly with any activity, and she is working toward getting a wheelchair for when she has to go out on longer shopping trips. Pt recently received trigger point injection in her cervical spine, but notes that they haven't done a thing. Treatment Goals Patient/Caregiver Goals Either help loosen up cervical musculature and reduce pain, or participate in enough PT that she is able to get a cervical CT scan approved. PT-OP-C Subjective Start: 08/13/21 17:30 Freq: Status: Active Protocol: Document 08/13/21 16:00 DCW (Rec: 08/13/21 17:43 DCW [id number]) OP-PT Subjective Patient Comments Patient Comments Things seem to be going downhill. I'm a big falls risk now. Patient Questionnaires Neck Disability Index NDI Score 37/50 = 74% Neck Disability Index Impairment 60 to 79% Impaired (Score 30- 39) Quick Dash- Upper Extremity Quick Dash UE Score 72.73% Quick Dash UE Impairment 60 to 79% Impaired (Score 60- 79) OP-PT Pain Assessment Pain Assessment Grid Paper Pain Assessment Grid Completed Yes Location Right Posterior Shoulder Intensity 8 Scale Used Numeric (0 - 10) Description Radiating,Sharp,Shooting,Spasm ,Tingling PT-OP-F Manual Assessment Start: 08/13/21 17:30 Freq: Status: Active Protocol: Document 08/13/21 16:00 DCW (Rec: 08/13/21 17:51 DCW [id number]) Manual Assessments Soft Tissue Assessment Soft Tissue Mobility Assessment Moderate-severe tone with tenderness to palpation 3/4: Wincing and withdraw R upper trap, R infraspinatus, R SCM Joint Mobility Assessment Joint Mobility Assessment Hypermobility in all joints secondary to EDS. PT-OP-K Range of Motion Start: 08/13/21 17:30 Freq: Status: Active Protocol: Document 08/13/21 16:00 DCW (Rec: 08/13/21 17:51 DCW [id number]) Cervical Spine Range of Motion Cervical Spine Active Degrees Testing Position Sitting Flexion 30 Extension 45 Rotation Left 38 Rotation Right 29 Lateral Flexion Left 35 Lateral Flexion Right 40 ROM Limitations Muscle Tone,Pain Comments Measured pain-free ROM Shoulder Goniometric Range of Motion Shoulder Right Active Shoulder ROM WFL Yes Testing Position Sitting Flexion 180 Abduction 180 External Rotation at 0 degrees Abduction 75 Comments Moves through full ROM, but pain increases significantly past 90? in both flexion and abduction Left Active Shoulder ROM WFL Yes Testing Position Sitting Flexion 180 Abduction 180 External Rotation at 0 degrees Abduction 75 PT-OP-L Special Tests Start: 08/13/21 17:30 Freq: Status: Active Protocol: Document 08/13/21 16:00 DCW (Rec: 08/13/21 17:51 DCW [id number]) Special Tests Cervical Spine Special Tests Slump Test Results Negative Foraminal Compression Test Results Discomfort Alar Ligament Test Results Negative PT-OP-M Strength Start: 08/13/21 17:30 Freq: Status: Active Protocol: Document 08/13/21 16:00 DCW (Rec: 08/13/21 17:51 DCW [id number]) Cervical Spine Strength Cervical Spine Manual Muscle Testing Comments Significant difficulty immediately upon head lift, but able to perform appropriate chin tuck Shoulder Strength Shoulder Manual Muscle Testing Right Flexion 4- Good- Abduction (C5) 4- Good- External Rotation 4 Good Internal Rotation 3+ Fair+ Left Flexion 4+ Good+ Abduction (C5) 4- Good- External Rotation 4+ Good+ Internal Rotation 4+ Good+ PT-OP-T Assessment and Plan Start: 08/13/21 17:30 Freq: Status: Active Protocol: Document 08/13/21 16:00 DCW (Rec: 08/14/21 09:49 DCW [id number]) Physical Therapy Assessment Rehab Potential Rehabilitation Potential Fair Evaluation Complexity Number of Personal Factors/Comorbidities 3 or More Number of Body Systems Impaired 4 or More Clinical Presentation at Evaluation Unstable Impairments Impairments Activity Tolerance,Functional Activities,Functional Mobility ,Gait,Pain,Posture,ROM,Soft Tissue Mobility,Strength,Tone, Transfers Goals Three Impairment Weakness in right shoulder MMT , especially IR (3+/5) and flex/abd (4-/5) Skilled Nursing Goal (LTG) Pt to demonstrate improve UE strength to at least 4/5 in order to demonstrate improved ability to use UEs to support herself while using her 4WW Two Impairment Pt experiences increase shoulder pain lifting right arm >90? flex and abd Skilled Nursing Goal (LTG) Pt to increase pain-free R shoulder ROM to >140? flexion and abduction in order to improve ability to get down items from cabinets. LTG Duration 11/11/21 One Impairment Pt does not have an appropriate home exercise program Short Term Goal (STG) Pt to be independent and compliant with an appropriate HEP STG Duration 09/12/21 Assessment Summary Assessment Pt presents with moderate- severe muscle tone along right neck and shoulder. Pt has multiple medical conditions which complicate her case, including POTS, Wilbur-Danlos Syndrome, Occipital Neuralgia, Hx Lumbar discectomy, Hx Gastric Bypass, and reports she is currently getting testing for potential Multiple Sclerosis. Pt should benefit from manual therapy and strengthening of her cervical and shoulder musculature, however due to her EDS, expect some increased tone to actually be helpful for stabilization of her c-spine. Pt additionally notes she has been told in the past she has a potential Chiari malformation. Physical Therapy Plan Frequency and Duration Frequency of Treatment 2x/Week Duration of Treatment 90 days Plan of Care Start Date 08/13/21 Plan of Care End Date 11/11/21 Therapeutic Interventions Therapeutic Interventions Aquatic Therapy,Home Exercise Program,Manual Therapy, Neuromuscular Re-education, Patient/Caregiver Education, Self-Care/Home Management,Soft Tissue Mobilization, Therapeutic Activities, Therapeutic Exercises Modalities Cold Pack/Ice Massage,Electric Stimulation,Hot Packs, Ultrasound Next Visit Focus/Plan Next Note Type Treatment Note Next Visit Plan STM, strengthening, ROM
--- NOTE | 2021-08-22 17:40 | PT.OTN ---
Current Diagnoses Stiffness of other specified joint, not elsewhere classified (08/22/21) Cervicalgia (08/22/21) Muscle weakness (generalized) (08/22/21) Paresthesia of skin (08/22/21) Physical Therapy Treatment Note PT-OP-A Visit Information Start: 08/13/21 17:30 Freq: Status: Active Protocol: Document 08/22/21 16:45 DCW (Rec: 08/22/21 17:40 DCW [id number]) Out-Patient Physical Therapy Visit Information Visit Information Visit Type Treatment Note Visit Start Time 16:45 Visit Stop Time 17:30 Total Visit Minutes 45 Visit Number 2 Number of HOP STRAINER Visits 0 Evaluation Information Evaluation Date 08/13/21 PT-OP-B Current Condition Start: 08/13/21 17:30 Freq: Status: Active Protocol: Document 08/13/21 16:00 DCW (Rec: 08/13/21 17:43 DCW [id number]) Current Condition History of Current Condition Onset Date Long-standing history Current Complaints Neck pain/stiffness, radicular arm symptoms History of Current Condition Pt is a 31 year old female well known to this clinic presenting with a long- standing history of cervical pain and stiffness. Pt's case history is complicated by lumbar and thoracic back pain, lumbar surgery, POTS, Wilbur- Danlos Syndrome, as well as pt is currently being testing for multiple various neurological and autoimmune conditions which may help to explain some of her various symptoms. Today, pt is noting pain in her neck and shoulders , particularly in her right shoulder. Pain is caused by just existing, notes it is pretty much constant, however she can reproduce a worse shooting pain down her right arm if she turns her head too quickly. Pt also notes her POTS symptoms seem to be worsening, walks into the clinic using a 4WW, which is a relatively new addition for her, reports she has been falling and fatiguing very quickly with any activity, and she is working toward getting a wheelchair for when she has to go out on longer shopping trips. Pt recently received trigger point injection inher cervical spine, but notes that they haven't done a thing. Treatment Goals Patient/Caregiver Goals Either help loosen up cervical musculature and reduce pain, or participate in enough PT that she is able to get a cervical CT scan approved. PT-OP-C Subjective Start: 08/13/21 17:30 Freq: Status: Active Protocol: Document 08/22/21 16:45 DCW (Rec: 08/22/21 17:40 DCW [id number]) OP-PT Subjective Patient Comments Patient Comments Pt notes she today is a fairly good day, she is doing well enoughthat she didn't feel the need to use an assistive device coming into the clinic today. 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 PT-OP-K Range of Motion Start: 08/13/21 17:30 Freq: Status: Active Protocol: Document 08/13/21 16:00 DCW (Rec: 08/13/21 17:51 DCW [id number]) Cervical Spine Range of Motion Cervical Spine Active Degrees Testing Position Sitting Flexion 30 Extension 45 Rotation Left 38 Rotation Right 29 Lateral Flexion Left 35 Lateral Flexion Right 40 ROM Limitations Muscle Tone,Pain Comments Measured pain-free ROM Shoulder Goniometric Range of Motion Shoulder Right Active Shoulder ROM WFL Yes Testing Position Sitting Flexion 180 Abduction 180 External Rotation at 0 degrees Abduction 75 Comments Moves through full ROM, but pain increases significantly past 90? in both flexion and abduction Left Active Shoulder ROM WFL Yes Testing Position Sitting Flexion 180 Abduction 180 External Rotation at 0 degrees Abduction 75 PT-OP-L Special Tests Start: 08/13/21 17:30 Freq: Status: Active Protocol: Document 08/13/21 16:00 DCW (Rec: 08/13/21 17:51 DCW [id number]) Special Tests Cervical Spine Special Tests Slump Test Results Negative Foraminal Compression Test Results Discomfort Alar Ligament Test Results Negative PT-OP-M Strength Start: 08/13/21 17:30 Freq: Status: Active Protocol: Document 08/13/21 16:00 DCW (Rec: 08/13/21 17:51 DCW [id number]) Cervical Spine Strength Cervical Spine Manual Muscle Testing Comments Significant difficulty immediately upon head lift, but able to perform appropriate chin tuck Shoulder Strength Shoulder Manual Muscle Testing Right Flexion 4- Good- Abduction (C5) 4- Good- External Rotation 4 Good Internal Rotation 3+ Fair+ Left Flexion 4+ Good+ Abduction (C5) 4- Good- External Rotation 4+ Good+ Internal Rotation 4+ Good+ PT-OP-Q Treatments Start: 08/13/21 17:30 Freq: Status: Active Protocol: Document 08/22/21 16:45 DCW (Rec: 08/22/21 17:40 DCW [id number]) Cardio Equipment Upper Body Ergometer (UBE) Duration (Minutes) 5 Seat Position 11 Height 3 Therapeutic Exercises Supine Exercises Horizontal Adduction Supine Exercise Name Supine flys Side bilateral Resistance 2# Serratus punch Supine Exercise Name Serratus punch Side bilateral Resistance 2# Standing Exercises Chest press Standing Exercise Name Chest press /c PVC Side bilateral Resistance 4# Adduction Standing Exercise Name Shoulder Adduction Side bilateral Resistance Lv 2 Extension Standing Exercise Name Shoulder Extension Side bilateral Resistance Lv 2 Rows Standing Exercise Name Rows Side bilateral Resistance Lv 2 Manual Therapy Treatment Soft Tissue Mobilization Upper Trap Body Location B UT, Levator, Scalenes Mobilization Type Sustained Pressure,Trigger Point Release Body Position Supine PT-OP-T Assessment and Plan Start: 08/13/21 17:30 Freq: Status: Active Protocol: Document 08/22/21 16:45 DCW (Rec: 08/22/21 17:40 DCW [id number]) Physical Therapy Assessment Impairments Impairments Activity Tolerance,Functional Activities,Functional Mobility ,Gait,Pain,Posture,ROM,Soft Tissue Mobility,Strength,Tone, Transfers Goals Three Impairment Weakness in right shoulder MMT , especially IR (3+/5) and flex/abd (4-/5) [employer] Goal (LTG) Pt to demonstrate improve UE strength to at least 4/5 in order to demonstrate improved ability to use UEs to support herself while using her 4WW LTG Duration 11/11/21 Two Impairment Pt experiences increase shoulder pain lifting right arm >90? flex and abd Assisted Goal (LTG) Pt to increase pain-free R shoulder ROM to >140? flexion and abduction in order to improve ability to get down items from cabinets. LTG Duration 11/11/21 One Impairment Pt does not have an appropriate home exercise program Short Term Goal (STG) Pt to be independent and compliant with an appropriate HEP STG Duration 09/12/21 Assessment Summary Assessment Pt tolerated gentle strengthening fairly well, did note some feelings of discomfort and instability in the right shoulder. STM able to help decrease some of the tone/tightness along right upper trap today. Physical Therapy Plan Frequency and Duration Frequency of Treatment 2x/Week Duration of Treatment 90 days Plan of Care Start Date 08/13/21 Plan of Care End Date 11/11/21 Therapeutic Interventions Therapeutic Interventions Aquatic Therapy,Home Exercise Program,Manual Therapy, Neuromuscular Re-education, Patient/Caregiver Education, Self-Care/Home Management,Soft Tissue Mobilization, Therapeutic Activities, Therapeutic Exercises Modalities Cold Pack/Ice Massage,Electric Stimulation,Hot Packs, Ultrasound Next Visit Focus/Plan Next Note Type Treatment Note Next Visit Plan STM, strengthening, ROM
--- NOTE | 2021-08-27 16:01 | PT.OTN ---
Current Diagnoses Stiffness of other specified joint, not elsewhere classified (08/27/21) Cervicalgia (08/27/21) Muscle weakness (generalized) (08/27/21) Paresthesia of skin (08/27/21) Physical Therapy Treatment Note PT-OP-A Visit Information Start: 08/13/21 17:30 Freq: Status: Active Protocol: Document 08/27/21 15:20 DCW (Rec: 08/27/21 16:00 DCW [id number]) Out-Patient Physical Therapy Visit Information Visit Information Visit Type Treatment Note Visit Start Time 15:20 Visit Stop Time 16:00 Total Visit Minutes 40 Visit Number 3 Number of BASEBALL SCOUT Visits 0 Evaluation Information Evaluation Date 08/13/21 PT-OP-B Current Condition Start: 08/13/21 17:30 Freq: Status: Active Protocol: Document 08/13/21 16:00 DCW (Rec: 08/13/21 17:43 DCW [id number]) Current Condition History of Current Condition Onset Date Long-standing history Current Complaints Neck pain/stiffness, radicular arm symptoms History of Current Condition Pt is a 31 year old female well known to this clinic presenting with a long- standing history of cervical pain and stiffness. Pt's case history is complicated by lumbar and thoracic back pain, lumbar surgery, POTS, Wilbur- Danlos Syndrome, as well as pt is currently being testing for multiple various neurological and autoimmune conditions which may help to explain some of her various symptoms. Today, pt is noting pain in her neck and shoulders , particularly in her right shoulder. Pain is caused by just existing, notes it is pretty much constant, however she can reproduce a worse shooting pain down her right arm if she turns her head too quickly. Pt also notes her POTS symptoms seem to be worsening, walks into the clinic using a 4WW, which is a relatively new addition for her, reports she has been falling and fatiguing very quickly with any activity, and she is working toward getting a wheelchair for when she has to go out on longer shopping trips. Pt recently received trigger point injection inher cervical spine, but notes that they haven't done a thing. Treatment Goals Patient/Caregiver Goals Either help loosen up cervical musculature and reduce pain, or participate in enough PT that she is able to get a cervical CT scan approved. PT-OP-C Subjective Start: 08/13/21 17:30 Freq: Status: Active Protocol: Document 08/27/21 15:20 DCW (Rec: 08/27/21 16:01 DCW [id number]) OP-PT Subjective Patient Comments Patient Comments Pt notes she is doing well enough again that she doesn't need her walker, but can feel that I'm on a downward slope right now. 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 PT-OP-K Range of Motion Start: 08/13/21 17:30 Freq: Status: Active Protocol: Document 08/13/21 16:00 DCW (Rec: 08/13/21 17:51 DCW [id number]) Cervical Spine Range of Motion Cervical Spine Active Degrees Testing Position Sitting Flexion 30 Extension 45 Rotation Left 38 Rotation Right 29 Lateral Flexion Left 35 Lateral Flexion Right 40 ROM Limitations Muscle Tone,Pain Comments Measured pain-free ROM Shoulder Goniometric Range of Motion Shoulder Right Active Shoulder ROM WFL Yes Testing Position Sitting Flexion 180 Abduction 180 External Rotation at 0 degrees Abduction 75 Comments Moves through full ROM, but pain increases significantly past 90? in both flexion and abduction Left Active Shoulder ROM WFL Yes Testing Position Sitting Flexion 180 Abduction 180 External Rotation at 0 degrees Abduction 75 PT-OP-L Special Tests Start: 08/13/21 17:30 Freq: Status: Active Protocol: Document 08/13/21 16:00 DCW (Rec: 08/13/21 17:51 DCW [id number]) Special Tests Cervical Spine Special Tests Slump Test Results Negative Foraminal Compression Test Results Discomfort Alar Ligament Test Results Negative PT-OP-M Strength Start: 08/13/21 17:30 Freq: Status: Active Protocol: Document 08/13/21 16:00 DCW (Rec: 08/13/21 17:51 DCW [id number]) Cervical Spine Strength Cervical Spine Manual Muscle Testing Comments Significant difficulty immediately upon head lift, but able to perform appropriate chin tuck Shoulder Strength Shoulder Manual Muscle Testing Right Flexion 4- Good- Abduction (C5) 4- Good- External Rotation 4 Good Internal Rotation 3+ Fair+ Left Flexion 4+ Good+ Abduction (C5) 4- Good- External Rotation 4+ Good+ Internal Rotation 4+ Good+ PT-OP-Q Treatments Start: 08/13/21 17:30 Freq: Status: Active Protocol: Document 08/27/21 15:20 DCW (Rec: 08/27/21 16:00 DCW [id number]) Cardio Equipment Upper Body Ergometer (UBE) Duration (Minutes) 5 Seat Position 11 Height 3 Gym Equipment Therapeutic Ball UE Stabilization Exercise Details Stabilization vs perturbations Ball Size/Color Blue - 45 cm Body Position Supine Comments Hold ball at 90? flexion Therapeutic Exercises Standing Exercises Wall ball Standing Exercise Name Wall ball Side bilateral Comments ABCs Other Exercises Resisted side-stepping Other Exercise Name UE Resisted side-stepping Resistance Red T-band Manual Therapy Treatment Soft Tissue Mobilization Upper Trap Body Location B UT, Levator, Scalenes Mobilization Type Sustained Pressure,Trigger Point Release Body Position Supine PT-OP-T Assessment and Plan Start: 08/13/21 17:30 Freq: Status: Active Protocol: Document 08/27/21 15:20 DCW (Rec: 08/27/21 16:00 DCW [id number]) Physical Therapy Assessment Impairments Impairments Activity Tolerance,Functional Activities,Functional Mobility ,Gait,Pain,Posture,ROM,Soft Tissue Mobility,Strength,Tone, Transfers Goals Three Impairment Weakness in right shoulder MMT , especially IR (3+/5) and flex/abd (4-/5) [facility] Goal (LTG) Pt to demonstrate improve UE strength to at least 4/5 in order to demonstrate improved ability to use UEs to support herself while using her 4WW LTG Duration 11/11/21 Two Impairment Pt experiences increase shoulder pain lifting right arm >90? flex and abd [facility] Goal (LTG) Pt to increase pain-free R shoulder ROM to >140? flexion and abduction in order to improve ability to get down items from cabinets. LTG Duration 11/11/21 One Impairment Pt does not have an appropriate home exercise program Short Term Goal (STG) Pt to be independent and compliant with an appropriate HEP STG Duration 09/12/21 Assessment Summary Assessment Pt did well with treatment today, tolerated new strengthening exercises well. Physical Therapy Plan Frequency and Duration Frequency of Treatment 2x/Week Duration of Treatment 90 days Plan of Care Start Date 08/13/21 Plan of Care End Date 11/11/21 Therapeutic Interventions Therapeutic Interventions Aquatic Therapy,Home Exercise Program,Manual Therapy, Neuromuscular Re-education, Patient/Caregiver Education, Self-Care/Home Management,Soft Tissue Mobilization, Therapeutic Activities, Therapeutic Exercises Modalities Cold Pack/Ice Massage,Electric Stimulation,Hot Packs, Ultrasound Next Visit Focus/Plan Next Note Type Treatment Note Next Visit Plan STM, strengthening, ROM
--- NOTE | 2021-08-30 16:00 | PT.OTN ---
Current Diagnoses Stiffness of other specified joint, not elsewhere classified (08/30/21) Cervicalgia (08/30/21) Muscle weakness (generalized) (08/30/21) Paresthesia of skin (08/30/21) Physical Therapy Treatment Note PT-OP-A Visit Information Start: 08/13/21 17:30 Freq: Status: Active Protocol: Document 08/30/21 15:18 DCW (Rec: 08/30/21 16:00 DCW [id number]) Out-Patient Physical Therapy Visit Information Visit Information Visit Type Treatment Note Visit Start Time 15:18 Visit Stop Time 16:00 Total Visit Minutes 42 Visit Number 4 Number of BENEFITS SPECIALIST Visits 0 Evaluation Information Evaluation Date 08/13/21 PT-OP-B Current Condition Start: 08/13/21 17:30 Freq: Status: Active Protocol: Document 08/13/21 16:00 DCW (Rec: 08/13/21 17:43 DCW [id number]) Current Condition History of Current Condition Onset Date Long-standing history Current Complaints Neck pain/stiffness, radicular arm symptoms History of Current Condition Pt is a 31 year old female well known to this clinic presenting with a long- standing history of cervical pain and stiffness. Pt's case history is complicated by lumbar and thoracic back pain, lumbar surgery, POTS, Wilbur- Danlos Syndrome, as well as pt is currently being testing for multiple various neurological and autoimmune conditions which may help to explain some of her various symptoms. Today, pt is noting pain in her neck and shoulders , particularly in her right shoulder. Pain is caused by just existing, notes it is pretty much constant, however she can reproduce a worse shooting pain down her right arm if she turns her head too quickly. Pt also notes her POTS symptoms seem to be worsening, walks into the clinic using a 4WW, which is a relatively new addition for her, reports she has been falling and fatiguing very quickly with any activity, and she is working toward getting a wheelchair for when she has to go out on longer shopping trips. Pt recently received trigger point injection inher cervical spine, but notes that they haven't done a thing. Treatment Goals Patient/Caregiver Goals Either help loosen up cervical musculature and reduce pain, or participate in enough PT that she is able to get a cervical CT scan approved. PT-OP-C Subjective Start: 08/13/21 17:30 Freq: Status: Active Protocol: Document 08/30/21 15:18 DCW (Rec: 08/30/21 16:00 DCW [id number]) OP-PT Subjective Patient Comments Patient Comments Right side is a little extra soretoday. 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 PT-OP-K Range of Motion Start: 08/13/21 17:30 Freq: Status: Active Protocol: Document 08/13/21 16:00 DCW (Rec: 08/13/21 17:51 DCW [id number]) Cervical Spine Range of Motion Cervical Spine Active Degrees Testing Position Sitting Flexion 30 Extension 45 Rotation Left 38 Rotation Right 29 Lateral Flexion Left 35 Lateral Flexion Right 40 ROM Limitations Muscle Tone,Pain Comments Measured pain-free ROM Shoulder Goniometric Range of Motion Shoulder Right Active Shoulder ROM WFL Yes Testing Position Sitting Flexion 180 Abduction 180 External Rotation at 0 degrees Abduction 75 Comments Moves through full ROM, but pain increases significantly past 90? in both flexion and abduction Left Active Shoulder ROM WFL Yes Testing Position Sitting Flexion 180 Abduction 180 External Rotation at 0 degrees Abduction 75 PT-OP-L Special Tests Start: 08/13/21 17:30 Freq: Status: Active Protocol: Document 08/13/21 16:00 DCW (Rec: 08/13/21 17:51 DCW [id number]) Special Tests Cervical Spine Special Tests Slump Test Results Negative Foraminal Compression Test Results Discomfort Alar Ligament Test Results Negative PT-OP-M Strength Start: 08/13/21 17:30 Freq: Status: Active Protocol: Document 08/13/21 16:00 DCW (Rec: 08/13/21 17:51 DCW [id number]) Cervical Spine Strength Cervical Spine Manual Muscle Testing Comments Significant difficulty immediately upon head lift, but able to perform appropriate chin tuck Shoulder Strength Shoulder Manual Muscle Testing Right Flexion 4- Good- Abduction (C5) 4- Good- External Rotation 4 Good Internal Rotation 3+ Fair+ Left Flexion 4+ Good+ Abduction (C5) 4- Good- External Rotation 4+ Good+ Internal Rotation 4+ Good+ PT-OP-Q Treatments Start: 08/13/21 17:30 Freq: Status: Active Protocol: Document 08/30/21 15:18 DCW (Rec: 08/30/21 16:00 DC [id number]) Cardio Equipment Upper Body Ergometer (UBE) Duration (Minutes) 5 Seat Position 11 Height 3.5 Gym Equipment Therapeutic Ball UE Stabilization Exercise Details Stabilization vs perturbations Ball Size/Color Blue - 45 cm Body Position Supine Comments Hold ball at 90? flexion Therapeutic Exercises Prone Exercises External Rotation Prone Exercise Name Prone ER Side bilateral Comments 90/90 Rows Prone Exercise Name Prone Rows Horizontal Abduction Prone Exercise Name Prone Horiz Abd Extension Prone Exercise Name Prone Ext Other Exercises Resisted side-stepping Other Exercise Name UE Resisted side-stepping Resistance Red T-band PT-OP-T Assessment and Plan Start: 08/13/21 17:30 Freq: Status: Active Protocol: Document 08/30/21 15:18 DCW (Rec: 08/30/21 16:00 [facility] [id number]) Physical Therapy Assessment Impairments Impairments Activity Tolerance,Functional Activities,Functional Mobility ,Gait,Pain,Posture,ROM,Soft Tissue Mobility,Strength,Tone, Transfers Goals Three Impairment Weakness in right shoulder MMT , especially IR (3+/5) and flex/abd (4-/5) [employer] Goal (LTG) Pt to demonstrate improve UE strength to at least 4/5 in order to demonstrate improved ability to use UEs to support herself while using her 4WW LTG Duration 11/11/21 Two Impairment Pt experiences increase shoulder pain lifting right arm >90? flex and abd Longterm Goal (LTG) Pt to increase pain-free R shoulder ROM to >140? flexion and abduction in order to improve ability to get down items from cabinets. LTG Duration 11/11/21 One Impairment Pt does not have an appropriate home exercise program Short Term Goal (STG) Pt to be independent and compliant with an appropriate HEP STG Duration 09/12/21 Assessment Summary Assessment Pt having some increased tingling in right arm today, relieved some with stretching and STM. Physical Therapy Plan Frequency and Duration Frequency of Treatment 2x/Week Duration of Treatment 90 days Plan of Care Start Date 08/13/21 Plan of Care End Date 11/11/21 Therapeutic Interventions Therapeutic Interventions Aquatic Therapy,Home Exercise Program,Manual Therapy, Neuromuscular Re-education, Patient/Caregiver Education, Self-Care/Home Management,Soft Tissue Mobilization, Therapeutic Activities, Therapeutic Exercises Modalities Cold Pack/Ice Massage,Electric Stimulation,Hot Packs, Ultrasound Next Visit Focus/Plan Next Note Type Treatment Note Next Visit Plan STM, strengthening, ROM
--- NOTE | 2021-09-03 13:51 | PT.OTN ---
Current Diagnoses Stiffness of other specified joint, not elsewhere classified (09/03/21) Cervicalgia (09/03/21) Muscle weakness (generalized) (09/03/21) Paresthesia of skin (09/03/21) Physical Therapy Treatment Note PT-OP-A Visit Information Start: 08/13/21 17:30 Freq: Status: Active Protocol: Document 09/03/21 13:51 NBM (Rec: 09/03/21 14:31 NBM [id number]) Out-Patient Physical Therapy Visit Information Visit Information Visit Type Treatment Note Visit Start Time 13:48 Visit Stop Time 14:30 Total Visit Minutes 42 Visit Number 5 Number of CISCO NETWORK ARCHITECT Visits 1 PT-OP-B Current Condition Start: 08/13/21 17:30 Freq: Status: Active Protocol: Document 08/13/21 16:00 DCW (Rec: 08/13/21 17:43 DCW [id number]) Current Condition History of Current Condition Onset Date Long-standing history Current Complaints Neck pain/stiffness, radicular arm symptoms History of Current Condition Pt is a 31 year old female well known to this clinic presenting with a long- standing history of cervical pain and stiffness. Pt's case history is complicated by lumbar and thoracic back pain, lumbar surgery, POTS, Wilbur- Danlos Syndrome, as well as pt is currently being testing for multiple various neurological and autoimmune conditions which may help to explain some of her various symptoms. Today, pt is noting pain in her neck and shoulders , particularly in her right shoulder. Pain is caused by just existing, notes it is pretty much constant, however she can reproduce a worse shooting pain down her right arm if she turns her head too quickly. Pt also notes her POTS symptoms seem to be worsening, walks into the clinic using a 4WW, which is a relatively new addition for her, reports she has been falling and fatiguing very quickly with any activity, and she is working toward getting a wheelchair for when she has to go out on longer shopping trips. Pt recently received trigger point injection inher cervical spine, but notes that they haven't done a thing. Treatment Goals Patient/Caregiver Goals Either help loosen up cervical musculature and reduce pain, or participate in enough PT that she is able to get a cervical CT scan approved. PT-OP-C Subjective Start: 08/13/21 17:30 Freq: Status: Active Protocol: Document 08/30/21 15:18 DCW (Rec: 08/30/21 16:00 DCW [id number]) OP-PT Subjective Patient Comments Patient Comments Right side is a little extra soretoday. 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 PT-OP-K Range of Motion Start: 08/13/21 17:30 Freq: Status: Active Protocol: Document 08/13/21 16:00 DCW (Rec: 08/13/21 17:51 DCW [id number]) Cervical Spine Range of Motion Cervical Spine Active Degrees Testing Position Sitting Flexion 30 Extension 45 Rotation Left 38 Rotation Right 29 Lateral Flexion Left 35 Lateral Flexion Right 40 ROM Limitations Muscle Tone,Pain Comments Measured pain-free ROM Shoulder Goniometric Range of Motion Shoulder Right Active Shoulder ROM WFL Yes Testing Position Sitting Flexion 180 Abduction 180 External Rotation at 0 degrees Abduction 75 Comments Moves through full ROM, but pain increases significantly past 90? in both flexion and abduction Left Active Shoulder ROM WFL Yes Testing Position Sitting Flexion 180 Abduction 180 External Rotation at 0 degrees Abduction 75 PT-OP-L Special Tests Start: 08/13/21 17:30 Freq: Status: Active Protocol: Document 08/13/21 16:00 DCW (Rec: 08/13/21 17:51 DCW [id number]) Special Tests Cervical Spine Special Tests Slump Test Results Negative Foraminal Compression Test Results Discomfort Alar Ligament Test Results Negative PT-OP-M Strength Start: 08/13/21 17:30 Freq: Status: Active Protocol: Document 08/13/21 16:00 DCW (Rec: 08/13/21 17:51 DCW [id number]) Cervical Spine Strength Cervical Spine Manual Muscle Testing Comments Significant difficulty immediately upon head lift, but able to perform appropriate chin tuck Shoulder Strength Shoulder Manual Muscle Testing Right Flexion 4- Good- Abduction (C5) 4- Good- External Rotation 4 Good Internal Rotation 3+ Fair+ Left Flexion 4+ Good+ Abduction (C5) 4- Good- External Rotation 4+ Good+ Internal Rotation 4+ Good+ PT-OP-Q Treatments Start: 08/13/21 17:30 Freq: Status: Active Protocol: Document 09/03/21 13:51 [facility] (Rec: 09/03/21 14:31 [facility] [id number]) Gym Equipment Therapeutic Ball UE Stabilization Exercise Details Stabilization vs perturbations Ball Size/Color Blue - 45 cm Body Position Supine Comments Hold ball at 90? flexion Therapeutic Exercises Supine Exercises Scap retraction Comments elbows flexed to 90deg Lower Thoracic Supine Exercise Name palms down, slide hands down, then press into floor Sitting Exercises Scalenes Stretch Comments chin tuck LS stretch Comments chin tuck, gentle pain-free range Upper Trap. stretch Comments chin tuck Standing Exercises Adduction Standing Exercise Name Shoulder Adduction Side bilateral Resistance Lv 2 Comments HEP review - dc'd on R d/t c/o R napoleon tingling Rows Standing Exercise Name Rows Side bilateral Resistance Lv 2 Comments HEP review Manual Therapy Treatment Soft Tissue Mobilization Upper Trap Body Location B UT, Levator, Scalenes Mobilization Type Sustained Pressure,Trigger Point Release Body Position Supine PT-OP-T Assessment and Plan Start: 08/13/21 17:30 Freq: Status: Active Protocol: Document 09/03/21 13:51 [facility] (Rec: 09/03/21 14:31 [facility] [id number]) Physical Therapy Assessment Goals Three Impairment Weakness in right shoulder MMT , especially IR (3+/5) and flex/abd (4-/5) Heel Edge Inker Machine Goal (LTG) Pt to demonstrate improve UE strength to at least 4/5 in order to demonstrate improved ability to use UEs to support herself while using her 4WW LTG Duration 11/11/21 Two Impairment Pt experiences increase shoulder pain lifting right arm >90? flex and abd Heel Edge Inker Machine Goal (LTG) Pt to increase pain-free R shoulder ROM to >140? flexion and abduction in order to improve ability to get down items from cabinets. LTG Duration 11/11/21 One Impairment Pt does not have an appropriate home exercise program Short Term Goal (STG) Pt to be independent and compliant with an appropriate HEP STG Duration 09/12/21 Assessment Summary Assessment Pt continues to experience discomfort R>L but both sides are problematic. Pt is having tingling in her R arm which is relieved w stretching and STM . Pt requires cues for stretching in pain-free ROM but shows improved self- awareness end of session. She requires frequent cues for posture w/ seated cervical AROM and stretches and will continue to benefit from skilled therapeutic intervention. Physical Therapy Plan Next Visit Focus/Plan Next Note Type Treatment Note Next Visit Plan STM, strengthening, ROM
--- NOTE | 2021-09-06 19:27 | PT.OTN ---
Current Diagnoses Stiffness of other specified joint, not elsewhere classified (09/06/21) Cervicalgia (09/06/21) Muscle weakness (generalized) (09/06/21) Paresthesia of skin (09/06/21) Physical Therapy Treatment Note PT-OP-A Visit Information Start: 08/13/21 17:30 Freq: Status: Active Protocol: Document 09/06/21 13:44 NBM (Rec: 09/06/21 19:27 NBM [id number]) Out-Patient Physical Therapy Visit Information Visit Information Visit Type Treatment Note Visit Start Time 13:45 Visit Stop Time 14:30 Total Visit Minutes 45 Visit Number 6 Number of LAW OFFICE ASSISTANT Visits 2 PT-OP-B Current Condition Start: 08/13/21 17:30 Freq: Status: Active Protocol: Document 08/13/21 16:00 DCW (Rec: 08/13/21 17:43 DCW [id number]) Current Condition History of Current Condition Onset Date Long-standing history Current Complaints Neck pain/stiffness, radicular arm symptoms History of Current Condition Pt is a 31 year old female well known to this clinic presenting with a long- standing history of cervical pain and stiffness. Pt's case history is complicated by lumbar and thoracic back pain, lumbar surgery, POTS, Wilbur- Danlos Syndrome, as well as pt is currently being testing for multiple various neurological and autoimmune conditions which may help to explain some of her various symptoms. Today, pt is noting pain in her neck and shoulders , particularly in her right shoulder. Pain is caused by just existing, notes it is pretty much constant, however she can reproduce a worse shooting pain down her right arm if she turns her head too quickly. Pt also notes her POTS symptoms seem to be worsening, walks into the clinic using a 4WW, which is a relatively new addition for her, reports she has been falling and fatiguing very quickly with any activity, and she is working toward getting a wheelchair for when she has to go out on longer shopping trips. Pt recently received trigger point injection inher cervical spine, but notes that they haven't done a thing. Treatment Goals Patient/Caregiver Goals Either help loosen up cervical musculature and reduce pain, or participate in enough PT that she is able to get a cervical CT scan approved. PT-OP-C Subjective Start: 08/13/21 17:30 Freq: Status: Active Protocol: Document 09/06/21 13:44 NBM (Rec: 09/06/21 19:27 NBM [id number]) OP-PT Subjective Patient Comments Patient Comments Pt arrives with 4WW and reports today is one of those days. I made the mistake of cleaning today. Tingling is happening in R shoulder about 5/10 and in legs 4/10 R>L. Waiting to hear back from skin biopsy for small fiber neuropathy. She noticed a pinching in her neck on the R with the LS stretch. 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 PT-OP-K Range of Motion Start: 08/13/21 17:30 Freq: Status: Active Protocol: Document 08/13/21 16:00 DCW (Rec: 08/13/21 17:51 DCW [id number]) Cervical Spine Range of Motion Cervical Spine Active Degrees Testing Position Sitting Flexion 30 Extension 45 Rotation Left 38 Rotation Right 29 Lateral Flexion Left 35 Lateral Flexion Right 40 ROM Limitations Muscle Tone,Pain Comments Measured pain-free ROM Shoulder Goniometric Range of Motion Shoulder Right Active Shoulder ROM WFL Yes Testing Position Sitting Flexion 180 Abduction 180 External Rotation at 0 degrees Abduction 75 Comments Moves through full ROM, but pain increases significantly past 90? in both flexion and abduction Left Active Shoulder ROM WFL Yes Testing Position Sitting Flexion 180 Abduction 180 External Rotation at 0 degrees Abduction 75 PT-OP-L Special Tests Start: 08/13/21 17:30 Freq: Status: Active Protocol: Document 08/13/21 16:00 DCW (Rec: 08/13/21 17:51 DCW [id number]) Special Tests Cervical Spine Special Tests Slump Test Results Negative Foraminal Compression Test Results Discomfort Alar Ligament Test Results Negative PT-OP-M Strength Start: 08/13/21 17:30 Freq: Status: Active Protocol: Document 08/13/21 16:00 DCW (Rec: 08/13/21 17:51 DCW [id number]) Cervical Spine Strength Cervical Spine Manual Muscle Testing Comments Significant difficulty immediately upon head lift, but able to perform appropriate chin tuck Shoulder Strength Shoulder Manual Muscle Testing Right Flexion 4- Good- Abduction (C5) 4- Good- External Rotation 4 Good Internal Rotation 3+ Fair+ Left Flexion 4+ Good+ Abduction (C5) 4- Good- External Rotation 4+ Good+ Internal Rotation 4+ Good+ PT-OP-Q Treatments Start: 08/13/21 17:30 Freq: Status: Active Protocol: Document 09/06/21 13:44 NB (Rec: 09/06/21 19:27 [facility] [id number]) Cardio Equipment Upper Body Ergometer (UBE) Duration (Minutes) 5 Seat Position 11 Height 3.5 Other Fwd/Bwd Therapeutic Exercises Supine Exercises LTR Supine Exercise Name Lower Thoracic Rotation Side bilateral Equipment Used red Tball Prone Exercises External Rotation Prone Exercise Name Prone ER Side bilateral Comments 90/90 Rows Prone Exercise Name Prone Rows Horizontal Abduction Prone Exercise Name Prone Horiz Abd Extension Prone Exercise Name Prone Ext Sidelying Exercises Open Book stretch Side bilateral Reps/Minutes 1x10 ea Other Exercises Resisted side-stepping Other Exercise Name UE Resisted side-stepping Resistance Red T-band Comments cues for posture Manual Therapy Treatment Soft Tissue Mobilization Upper Trap Body Location B UT, Levator, Scalenes, Suboccip. Mobilization Type Sustained Pressure,Trigger Point Release Body Position Hooklying Comments manual B pec stretch PT-OP-T Assessment and Plan Start: 08/13/21 17:30 Freq: Status: Active Protocol: Document 09/06/21 13:44 [facility] (Rec: 09/06/21 19:27 [facility] [id number]) Physical Therapy Assessment Goals Three Impairment Weakness in right shoulder MMT , especially IR (3+/5) and flex/abd (4-/5) Assisted Goal (LTG) Pt to demonstrate improve UE strength to at least 4/5 in order to demonstrate improved ability to use UEs to support herself while using her 4WW LTG Duration 11/11/21 Two Impairment Pt experiences increase shoulder pain lifting right arm >90? flex and abd Steam Trap Worker Goal (LTG) Pt to increase pain-free R shoulder ROM to >140? flexion and abduction in order to improve ability to get down items from cabinets. LTG Duration 11/11/21 One Impairment Pt does not have an appropriate home exercise program Short Term Goal (STG) Pt to be independent and compliant with an appropriate HEP STG Duration 09/12/21 Assessment Summary Assessment Pt tolerated prone shoulder exercises without increase in baseline symptoms. Pt reported symptom relief w/ lower trunk rotation, open book stretch, and manual therapy. Pt will benefit from continued therapeutic intervention. Physical Therapy Plan Next Visit Focus/Plan Next Note Type Treatment Note Next Visit Plan STM, strengthening, ROM
--- NOTE | 2021-09-10 14:30 | PT.OTN ---
Current Diagnoses Stiffness of other specified joint, not elsewhere classified (09/18/21) Cervicalgia (09/18/21) Muscle weakness (generalized) (09/18/21) Paresthesia of skin (09/18/21) Physical Therapy Treatment Note PT-OP-A Visit Information Start: 08/13/21 17:30 Freq: Status: Active Protocol: Document 09/18/21 13:51 NBM (Rec: 09/10/21 14:42 NBM [id number]) Out-Patient Physical Therapy Visit Information Visit Information Visit Type Treatment Note Visit Start Time 13:45 Visit Stop Time 14:30 Total Visit Minutes 45 Visit Number 7 Number of LIGHT RAIL VEHICLE OPERATOR Visits 3 PT-OP-B Current Condition Start: 08/13/21 17:30 Freq: Status: Active Protocol: Document 08/13/21 16:00 DCW (Rec: 08/13/21 17:43 DCW [id number]) Current Condition History of Current Condition Onset Date Long-standing history Current Complaints Neck pain/stiffness, radicular arm symptoms History of Current Condition Pt is a 31 year old female well known to this clinic presenting with a long- standing history of cervical pain and stiffness. Pt's case history is complicated by lumbar and thoracic back pain, lumbar surgery, POTS, Wilbur- Danlos Syndrome, as well as pt is currently being testing for multiple various neurological and autoimmune conditions which may help to explain some of her various symptoms. Today, pt is noting pain in her neck and shoulders , particularly in her right shoulder. Pain is caused by just existing, notes it is pretty much constant, however she can reproduce a worse shooting pain down her right arm if she turns her head too quickly. Pt also notes her POTS symptoms seem to be worsening, walks into the clinic using a 4WW, which is a relatively new addition for her, reports she has been falling and fatiguing very quickly with any activity, and she is working toward getting a wheelchair for when she has to go out on longer shopping trips. Pt recently received trigger point injection inher cervical spine, but notes that they haven't done a thing. Treatment Goals Patient/Caregiver Goals Either help loosen up cervical musculature and reduce pain, or participate in enough PT that she is able to get a cervical CT scan approved. PT-OP-C Subjective Start: 08/13/21 17:30 Freq: Status: Active Protocol: Document 09/18/21 13:51 NBM (Rec: 09/10/21 14:42 NBM [id number]) OP-PT Subjective Patient Comments Patient Comments Pt arrives with 4WW and reports yesterday energy was especially low and had to assembly worker for safety. Today her energy is slightly improved but still lower than her baseline. R napoleon tingling 5 /10 down into wrist, legs 3/10 . 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 PT-OP-K Range of Motion Start: 08/13/21 17:30 Freq: Status: Active Protocol: Document 08/13/21 16:00 DCW (Rec: 08/13/21 17:51 DCW [id number]) Cervical Spine Range of Motion Cervical Spine Active Degrees Testing Position Sitting Flexion 30 Extension 45 Rotation Left 38 Rotation Right 29 Lateral Flexion Left 35 Lateral Flexion Right 40 ROM Limitations Muscle Tone,Pain Comments Measured pain-free ROM Shoulder Goniometric Range of Motion Shoulder Right Active Shoulder ROM WFL Yes Testing Position Sitting Flexion 180 Abduction 180 External Rotation at 0 degrees Abduction 75 Comments Moves through full ROM, but pain increases significantly past 90? in both flexion and abduction Left Active Shoulder ROM WFL Yes Testing Position Sitting Flexion 180 Abduction 180 External Rotation at 0 degrees Abduction 75 PT-OP-L Special Tests Start: 08/13/21 17:30 Freq: Status: Active Protocol: Document 08/13/21 16:00 DCW (Rec: 08/13/21 17:51 DCW [id number]) Special Tests Cervical Spine Special Tests Slump Test Results Negative Foraminal Compression Test Results Discomfort Alar Ligament Test Results Negative PT-OP-M Strength Start: 08/13/21 17:30 Freq: Status: Active Protocol: Document 08/13/21 16:00 DCW (Rec: 08/13/21 17:51 DCW [id number]) Cervical Spine Strength Cervical Spine Manual Muscle Testing Comments Significant difficulty immediately upon head lift, but able to perform appropriate chin tuck Shoulder Strength Shoulder Manual Muscle Testing Right Flexion 4- Good- Abduction (C5) 4- Good- External Rotation 4 Good Internal Rotation 3+ Fair+ Left Flexion 4+ Good+ Abduction (C5) 4- Good- External Rotation 4+ Good+ Internal Rotation 4+ Good+ PT-OP-Q Treatments Start: 08/13/21 17:30 Freq: Status: Active Protocol: Document 09/18/21 13:51 [facility] (Rec: 09/10/21 14:42 [facility] [id number]) Cardio Equipment Upper Body Ergometer (UBE) Duration (Minutes) 5 Seat Position 11 Height 3.5 Other Fwd/Bwd Therapeutic Exercises Supine Exercises BKFO Supine Exercise Name bent knee fallout Comments w/PPT and TrA focus, vc for breathing PPT Comments w/ TrA focus, cues for breathing LTR Supine Exercise Name Lower Thoracic Rotation Side bilateral Equipment Used red Tball Sidelying Exercises Open Book stretch Sidelying Exercise Name SL on L: LBP 5-6/10>4/10 w/ TrA focus Side bilateral Reps/Minutes 1x10 ea Comments pinch in low back improved w/ cue for TrA Manual Therapy Treatment Soft Tissue Mobilization Upper Trap Body Location R UT, LS, Mobilization Type Rolling,Strumming,Sustained Pressure,Trigger Point Release Intensity/Depth Moderate Body Position Sidelying Comments L Sidelying w/ pillow support PT-OP-R Modalities Start: 09/18/21 13:45 Freq: Status: Active Protocol: Document 09/18/21 13:51 [facility] (Rec: 09/18/21 13:50 [facility] [id number]) Hot Pack/Cold Pack Treatment Cold Pack Location R shoulder, lumbar and cervical Patient Position Hooklying Treatment Duration (minutes) 10 Patient Tolerance Good Comments pillow support under r UE PT-OP-T Assessment and Plan Start: 08/13/21 17:30 Freq: Status: Active Protocol: Document 09/18/21 13:51 [facility] (Rec: 09/10/21 14:42 [facility] [id number]) Physical Therapy Assessment Goals Three Impairment Weakness in right shoulder MMT , especially IR (3+/5) and flex/abd (4-/5) Fdc Goal (LTG) Pt to demonstrate improve UE strength to at least 4/5 in order to demonstrate improved ability to use UEs to support herself while using her 4WW LTG Duration 11/11/21 Two Impairment Pt experiences increase shoulder pain lifting right arm >90? flex and abd Product Support Manager Goal (LTG) Pt to increase pain-free R shoulder ROM to >140? flexion and abduction in order to improve ability to get down items from cabinets. LTG Duration 11/11/21 One Impairment Pt does not have an appropriate home exercise program Short Term Goal (STG) Pt to be independent and compliant with an appropriate HEP STG Duration 09/12/21 Assessment Summary Assessment Treatment focus on core engagement to improve LBP and improve posture. Pt demonstrates improving self- awareness of core engagement. LBP 5-6/10 w/ Open book stretch L sidelying improved to 4/10 w/ cues TrA focus. Pt will benefit from continued skilled therapeutic intervention. Physical Therapy Plan Therapeutic Interventions Therapeutic Interventions Aquatic Therapy,Home Exercise Program,Manual Therapy, Neuromuscular Re-education, Patient/Caregiver Education, Self-Care/Home Management,Soft Tissue Mobilization, Therapeutic Activities, Therapeutic Exercises Modalities Cold Pack/Ice Massage,Electric Stimulation,Hot Packs, Ultrasound Next Visit Focus/Plan Next Note Type Treatment Note Next Visit Plan STM, strengthening, ROM
--- NOTE | 2021-09-13 14:30 | PT.OTN ---
Current Diagnoses Stiffness of other specified joint, not elsewhere classified (09/18/21) Cervicalgia (09/18/21) Muscle weakness (generalized) (09/18/21) Paresthesia of skin (09/18/21) Physical Therapy Treatment Note PT-OP-A Visit Information Start: 08/13/21 17:30 Freq: Status: Active Protocol: Document 09/13/21 13:54 NBM (Rec: 09/13/21 14:34 NBM [id number]) Out-Patient Physical Therapy Visit Information Visit Information Visit Type Treatment Note Visit Start Time 13:45 Visit Stop Time 14:30 Total Visit Minutes 45 Visit Number 8 Number of STEAM CONDITIONER OPERATOR Visits 4 PT-OP-B Current Condition Start: 08/13/21 17:30 Freq: Status: Active Protocol: Document 08/13/21 16:00 DCW (Rec: 08/13/21 17:43 DCW [id number]) Current Condition History of Current Condition Onset Date Long-standing history Current Complaints Neck pain/stiffness, radicular arm symptoms History of Current Condition Pt is a 31 year old female well known to this clinic presenting with a long- standing history of cervical pain and stiffness. Pt's case history is complicated by lumbar and thoracic back pain, lumbar surgery, POTS, Wilbur- Danlos Syndrome, as well as pt is currently being testing for multiple various neurological and autoimmune conditions which may help to explain some of her various symptoms. Today, pt is noting pain in her neck and shoulders , particularly in her right shoulder. Pain is caused by just existing, notes it is pretty much constant, however she can reproduce a worse shooting pain down her right arm if she turns her head too quickly. Pt also notes her POTS symptoms seem to be worsening, walks into the clinic using a 4WW, which is a relatively new addition for her, reports she has been falling and fatiguing very quickly with any activity, and she is working toward getting a wheelchair for when she has to go out on longer shopping trips. Pt recently received trigger point injection inher cervical spine, but notes that they haven't done a thing. Treatment Goals Patient/Caregiver Goals Either help loosen up cervical musculature and reduce pain, or participate in enough PT that she is able to get a cervical CT scan approved. PT-OP-C Subjective Start: 08/13/21 17:30 Freq: Status: Active Protocol: Document 09/13/21 13:54 NBM (Rec: 09/13/21 14:34 NBM [id number]) OP-PT Subjective Patient Comments Patient Comments Pt arrives w/ 4WW. She forgot to take medications last night and has been having GI pain. She had pain injections on Thu which have brought her pinching pain in R side of neck down to tolerable pain. 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 PT-OP-K Range of Motion Start: 08/13/21 17:30 Freq: Status: Active Protocol: Document 08/13/21 16:00 DCW (Rec: 08/13/21 17:51 DCW [id number]) Cervical Spine Range of Motion Cervical Spine Active Degrees Testing Position Sitting Flexion 30 Extension 45 Rotation Left 38 Rotation Right 29 Lateral Flexion Left 35 Lateral Flexion Right 40 ROM Limitations Muscle Tone,Pain Comments Measured pain-free ROM Shoulder Goniometric Range of Motion Shoulder Right Active Shoulder ROM WFL Yes Testing Position Sitting Flexion 180 Abduction 180 External Rotation at 0 degrees Abduction 75 Comments Moves through full ROM, but pain increases significantly past 90? in both flexion and abduction Left Active Shoulder ROM WFL Yes Testing Position Sitting Flexion 180 Abduction 180 External Rotation at 0 degrees Abduction 75 PT-OP-L Special Tests Start: 08/13/21 17:30 Freq: Status: Active Protocol: Document 08/13/21 16:00 DCW (Rec: 08/13/21 17:51 DCW [id number]) Special Tests Cervical Spine Special Tests Slump Test Results Negative Foraminal Compression Test Results Discomfort Alar Ligament Test Results Negative PT-OP-M Strength Start: 08/13/21 17:30 Freq: Status: Active Protocol: Document 08/13/21 16:00 DCW (Rec: 08/13/21 17:51 DCW [id number]) Cervical Spine Strength Cervical Spine Manual Muscle Testing Comments Significant difficulty immediately upon head lift, but able to perform appropriate chin tuck Shoulder Strength Shoulder Manual Muscle Testing Right Flexion 4- Good- Abduction (C5) 4- Good- External Rotation 4 Good Internal Rotation 3+ Fair+ Left Flexion 4+ Good+ Abduction (C5) 4- Good- External Rotation 4+ Good+ Internal Rotation 4+ Good+ PT-OP-Q Treatments Start: 08/13/21 17:30 Freq: Status: Active Protocol: Document 09/13/21 13:54 [facility] (Rec: 09/13/21 14:34 [facility] [id number]) Cardio Equipment Upper Body Ergometer (UBE) Duration (Minutes) 5 Seat Position 11 Height 3.5 Other Fwd/Bwd Gym Equipment Therapeutic Ball Hip/knee flexion Exercise Details Flexion vs resistance Ball Size/Color Red - 55 cm Lv 3 T-band- (provided for home) Body Position Supine Reps/Duration x10 Comments adductor/hip flexor muscle soreness/tiring, increased tingling B anterior thighs so stopped Bridging Exercise Details Bridging /c feet on ball Ball Size/Color Red - 55 cm Body Position Supine Reps/Duration 5 reps only today Comments cued TA segmental lift x5- good slow movement. LTR Exercise Details LTR Ball Size/Color Red - 55 cm Body Position Supine Reps/Duration x10 Comments Level #3 TB, good TA and slow pacing form. Therapeutic Exercises Supine Exercises BKFO Supine Exercise Name bent knee fallout Comments w/PPT and TrA focus LTR Supine Exercise Name Lower Thoracic Rotation Side bilateral Equipment Used red Tball Scap retraction Comments elbows flexed to 90deg Lower Thoracic Supine Exercise Name palms down, slide hands down, then press into floor Horizontal Adduction Supine Exercise Name Supine flys Side bilateral Resistance 2# Serratus punch Supine Exercise Name Serratus punch Side bilateral Resistance 2# Manual Therapy Treatment Soft Tissue Mobilization Upper Trap Body Location R UT, LS, Rhomboid, LT, pec, lumbar: QL and paraspinals Mobilization Type Rolling,Sustained Pressure, Trigger Point Release Intensity/Depth Moderate Body Position Supine>Sidelying Comments w pillow support under R UE and between legs PT-OP-R Modalities Start: 09/18/21 13:45 Freq: Status: Active Protocol: Document 09/13/21 13:54 [facility] (Rec: 09/18/21 13:47 [facility] [id number]) Hot Pack/Cold Pack Treatment Cold Pack Location R napoleon, lumbar, cervical Patient Position Hooklying Treatment Duration (minutes) 10 Patient Tolerance Good Comments pillow support under R UE PT-OP-T Assessment and Plan Start: 08/13/21 17:30 Freq: Status: Active Protocol: Document 09/13/21 13:54 [facility] (Rec: 09/13/21 14:34 [facility] [id number]) Physical Therapy Assessment Goals Three Impairment Weakness in right shoulder MMT , especially IR (3+/5) and flex/abd (4-/5) Snf Goal (LTG) Pt to demonstrate improve UE strength to at least 4/5 in order to demonstrate improved ability to use UEs to support herself while using her 4WW LTG Duration 11/11/21 Two Impairment Pt experiences increase shoulder pain lifting right arm >90? flex and abd Organization Development Consultant Goal (LTG) Pt to increase pain-free R shoulder ROM to >140? flexion and abduction in order to improve ability to get down items from cabinets. LTG Duration 11/11/21 One Impairment Pt does not have an appropriate home exercise program Short Term Goal (STG) Pt to be independent and compliant with an appropriate HEP STG Duration 09/12/21 Assessment Summary Assessment Treatment focus on shoulder and core strengthening and manual therapy to cervical spine, R shoulder, and low back. Pt requires cues throughout session for lumbar hyperextension. Pt will benefit from continued skilled therapeutic intervention. Physical Therapy Plan Therapeutic Interventions Therapeutic Interventions Aquatic Therapy,Home Exercise Program,Manual Therapy, Neuromuscular Re-education, Patient/Caregiver Education, Self-Care/Home Management,Soft Tissue Mobilization, Therapeutic Activities, Therapeutic Exercises Modalities Cold Pack/Ice Massage,Electric Stimulation,Hot Packs, Ultrasound Next Visit Focus/Plan Next Note Type Treatment Note Next Visit Plan STM, strengthening, ROM
--- NOTE | 2021-09-18 14:28 | PT.OTN ---
Current Diagnoses Stiffness of other specified joint, not elsewhere classified (09/18/21) Cervicalgia (09/18/21) Muscle weakness (generalized) (09/18/21) Paresthesia of skin (09/18/21) Physical Therapy Treatment Note PT-OP-A Visit Information Start: 08/13/21 17:30 Freq: Status: Active Protocol: Document 09/18/21 13:46 DCW (Rec: 09/18/21 14:27 DCW [id number]) Out-Patient Physical Therapy Visit Information Visit Information Visit Type Treatment Note Visit Start Time 13:46 Visit Stop Time 14:30 Total Visit Minutes 44 Visit Number 9 Number of DEFENSE ATTORNEY Visits 0 Evaluation Information Evaluation Date 08/13/21 PT-OP-B Current Condition Start: 08/13/21 17:30 Freq: Status: Active Protocol: Document 08/13/21 16:00 DCW (Rec: 08/13/21 17:43 DCW [id number]) Current Condition History of Current Condition Onset Date Long-standing history Current Complaints Neck pain/stiffness, radicular arm symptoms History of Current Condition Pt is a 31 year old female well known to this clinic presenting with a long- standing history of cervical pain and stiffness. Pt's case history is complicated by lumbar and thoracic back pain, lumbar surgery, POTS, Wilbur- Danlos Syndrome, as well as pt is currently being testing for multiple various neurological and autoimmune conditions which may help to explain some of her various symptoms. Today, pt is noting pain in her neck and shoulders , particularly in her right shoulder. Pain is caused by just existing, notes it is pretty much constant, however she can reproduce a worse shooting pain down her right arm if she turns her head too quickly. Pt also notes her POTS symptoms seem to be worsening, walks into the clinic using a 4WW, which is a relatively new addition for her, reports she has been falling and fatiguing very quickly with any activity, and she is working toward getting a wheelchair for when she has to go out on longer shopping trips. Pt recently received trigger point injection inher cervical spine, but notes that they haven't done a thing. Treatment Goals Patient/Caregiver Goals Either help loosen up cervical musculature and reduce pain, or participate in enough PT that she is able to get a cervical CT scan approved. PT-OP-C Subjective Start: 08/13/21 17:30 Freq: Status: Active Protocol: Document 09/18/21 13:46 DCW (Rec: 09/18/21 14:27 DCW [id number]) OP-PT Subjective Patient Comments Patient Comments My right shoulder today has been bouncing between a 7 and 09/25. I've been having tremors in it as well,which has been pretty problematic. Pt notes she also fell on Thursday, some bruising on her knees and some soreness in her arm from catching herself, but otherwise no lingering injuries. 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 PT-OP-K Range of Motion Start: 08/13/21 17:30 Freq: Status: Active Protocol: Document 08/13/21 16:00 DCW (Rec: 08/13/21 17:51 DCW [id number]) Cervical Spine Range of Motion Cervical Spine Active Degrees Testing Position Sitting Flexion 30 Extension 45 Rotation Left 38 Rotation Right 29 Lateral Flexion Left 35 Lateral Flexion Right 40 ROM Limitations Muscle Tone,Pain Comments Measured pain-free ROM Shoulder Goniometric Range of Motion Shoulder Right Active Shoulder ROM WFL Yes Testing Position Sitting Flexion 180 Abduction 180 External Rotation at 0 degrees Abduction 75 Comments Moves through full ROM, but pain increases significantly past 90? in both flexion and abduction Left Active Shoulder ROM WFL Yes Testing Position Sitting Flexion 180 Abduction 180 External Rotation at 0 degrees Abduction 75 PT-OP-L Special Tests Start: 08/13/21 17:30 Freq: Status: Active Protocol: Document 08/13/21 16:00 DCW (Rec: 08/13/21 17:51 DCW [id number]) Special Tests Cervical Spine Special Tests Slump Test Results Negative Foraminal Compression Test Results Discomfort Alar Ligament Test Results Negative PT-OP-M Strength Start: 08/13/21 17:30 Freq: Status: Active Protocol: Document 08/13/21 16:00 DCW (Rec: 08/13/21 17:51 DCW [id number]) Cervical Spine Strength Cervical Spine Manual Muscle Testing Comments Significant difficulty immediately upon head lift, but able to perform appropriate chin tuck Shoulder Strength Shoulder Manual Muscle Testing Right Flexion 4- Good- Abduction (C5) 4- Good- External Rotation 4 Good Internal Rotation 3+ Fair+ Left Flexion 4+ Good+ Abduction (C5) 4- Good- External Rotation 4+ Good+ Internal Rotation 4+ Good+ PT-OP-Q Treatments Start: 08/13/21 17:30 Freq: Status: Active Protocol: Document 09/18/21 13:46 DCW (Rec: 09/18/21 14:27 DCW [id number]) Cardio Equipment Upper Body Ergometer (UBE) Duration (Minutes) 5 Seat Position 11 Height 3.5 Other Fwd/Bwd Therapeutic Exercises Supine Exercises Horizontal Adduction Supine Exercise Name Supine flys Side bilateral Resistance 2# Serratus punch Supine Exercise Name Serratus punch Side bilateral Resistance 2#->0# Manual Therapy Treatment Soft Tissue Mobilization Upper Trap Body Location R UT, LS, Rhomboid Mobilization Type Rolling,Strumming,Sustained Pressure,Trigger Point Release Intensity/Depth Moderate Body Position Supine PT-OP-R Modalities Start: 09/18/21 13:45 Freq: Status: Active Protocol: Document 09/13/21 13:54 NB (Rec: 09/18/21 13:47 [facility] [id number]) Hot Pack/Cold Pack Treatment Cold Pack Location R napoleon, lumbar, cervical Patient Position Hooklying Treatment Duration (minutes) 10 Patient Tolerance Good Comments pillow support under R UE PT-OP-T Assessment and Plan Start: 08/13/21 17:30 Freq: Status: Active Protocol: Document 09/18/21 13:46 DCW (Rec: 09/18/21 14:27 DCW [id number]) Physical Therapy Assessment Goals Three Impairment Weakness in right shoulder MMT , especially IR (3+/5) and flex/abd (4-/5) Director Of Women'S Services Goal (LTG) Pt to demonstrate improve UE strength to at least 4/5 in order to demonstrate improved ability to use UEs to support herself while using her 4WW LTG Duration 11/11/21 Two Impairment Pt experiences increase shoulder pain lifting right arm >90? flex and abd Prison Goal (LTG) Pt to increase pain-free R shoulder ROM to >140? flexion and abduction in order to improve ability to get down items from cabinets. LTG Duration 11/11/21 One Impairment Pt does not have an appropriate home exercise program Short Term Goal (STG) Pt to be independent and compliant with an appropriate HEP STG Duration 09/12/21 Assessment Summary Assessment Performed more STM today due to ongoing worsening shoulder pain. Pt noted some improvement post-session, however still noting a 6-7/10 pain. Physical Therapy Plan Frequency and Duration Frequency of Treatment 2x/Week Duration of Treatment 90 days Plan of Care Start Date 08/13/21 Plan of Care End Date 11/11/21 Therapeutic Interventions Therapeutic Interventions Aquatic Therapy,Home Exercise Program,Manual Therapy, Neuromuscular Re-education, Patient/Caregiver Education, Self-Care/Home Management,Soft Tissue Mobilization, Therapeutic Activities, Therapeutic Exercises Modalities Cold Pack/Ice Massage,Electric Stimulation,Hot Packs, Ultrasound Next Visit Focus/Plan Next Note Type Treatment Note Next Visit Plan STM, strengthening, ROM
--- NOTE | 2021-09-20 15:20 | PT.OTN ---
Current Diagnoses Stiffness of other specified joint, not elsewhere classified (09/20/21) Cervicalgia (09/20/21) Muscle weakness (generalized) (09/20/21) Paresthesia of skin (09/20/21) Physical Therapy Treatment Note PT-OP-A Visit Information Start: 08/13/21 17:30 Freq: Status: Active Protocol: Document 09/20/21 13:53 NBM (Rec: 09/20/21 15:20 NBM [id number]) Out-Patient Physical Therapy Visit Information Visit Information Visit Type Treatment Note Visit Start Time 13:47 Visit Stop Time 14:30 Total Visit Minutes 43 Visit Number 10 Number of CLERK GENERAL OFFICE Visits 1 PT-OP-B Current Condition Start: 08/13/21 17:30 Freq: Status: Active Protocol: Document 08/13/21 16:00 DCW (Rec: 08/13/21 17:43 DCW [id number]) Current Condition History of Current Condition Onset Date Long-standing history Current Complaints Neck pain/stiffness, radicular arm symptoms History of Current Condition Pt is a 31 year old female well known to this clinic presenting with a long- standing history of cervical pain and stiffness. Pt's case history is complicated by lumbar and thoracic back pain, lumbar surgery, POTS, Wilbur- Danlos Syndrome, as well as pt is currently being testing for multiple various neurological and autoimmune conditions which may help to explain some of her various symptoms. Today, pt is noting pain in her neck and shoulders , particularly in her right shoulder. Pain is caused by just existing, notes it is pretty much constant, however she can reproduce a worse shooting pain down her right arm if she turns her head too quickly. Pt also notes her POTS symptoms seem to be worsening, walks into the clinic using a 4WW, which is a relatively new addition for her, reports she has been falling and fatiguing very quickly with any activity, and she is working toward getting a wheelchair for when she has to go out on longer shopping trips. Pt recently received trigger point injection inher cervical spine, but notes that they haven't done a thing. Treatment Goals Patient/Caregiver Goals Either help loosen up cervical musculature and reduce pain, or participate in enough PT that she is able to get a cervical CT scan approved. PT-OP-C Subjective Start: 08/13/21 17:30 Freq: Status: Active Protocol: Document 09/20/21 13:53 NBM (Rec: 09/20/21 15:20 NBM [id number]) OP-PT Subjective Patient Comments Patient Comments My right shoulder is a sharp 7/10 today. I think my shots wore off and my pain goes up in my neck to the back of my head. I have not been able to sleep. 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 PT-OP-K Range of Motion Start: 08/13/21 17:30 Freq: Status: Active Protocol: Document 08/13/21 16:00 DCW (Rec: 08/13/21 17:51 DCW [id number]) Cervical Spine Range of Motion Cervical Spine Active Degrees Testing Position Sitting Flexion 30 Extension 45 Rotation Left 38 Rotation Right 29 Lateral Flexion Left 35 Lateral Flexion Right 40 ROM Limitations Muscle Tone,Pain Comments Measured pain-free ROM Shoulder Goniometric Range of Motion Shoulder Right Active Shoulder ROM WFL Yes Testing Position Sitting Flexion 180 Abduction 180 External Rotation at 0 degrees Abduction 75 Comments Moves through full ROM, but pain increases significantly past 90? in both flexion and abduction Left Active Shoulder ROM WFL Yes Testing Position Sitting Flexion 180 Abduction 180 External Rotation at 0 degrees Abduction 75 PT-OP-L Special Tests Start: 08/13/21 17:30 Freq: Status: Active Protocol: Document 08/13/21 16:00 DCW (Rec: 08/13/21 17:51 DCW [id number]) Special Tests Cervical Spine Special Tests Slump Test Results Negative Foraminal Compression Test Results Discomfort Alar Ligament Test Results Negative PT-OP-M Strength Start: 08/13/21 17:30 Freq: Status: Active Protocol: Document 08/13/21 16:00 DCW (Rec: 08/13/21 17:51 DCW [id number]) Cervical Spine Strength Cervical Spine Manual Muscle Testing Comments Significant difficulty immediately upon head lift, but able to perform appropriate chin tuck Shoulder Strength Shoulder Manual Muscle Testing Right Flexion 4- Good- Abduction (C5) 4- Good- External Rotation 4 Good Internal Rotation 3+ Fair+ Left Flexion 4+ Good+ Abduction (C5) 4- Good- External Rotation 4+ Good+ Internal Rotation 4+ Good+ PT-OP-Q Treatments Start: 08/13/21 17:30 Freq: Status: Active Protocol: Document 09/20/21 13:53 [facility] (Rec: 09/20/21 15:20 [facility] [id number]) Therapeutic Exercises Supine Exercises LTR Supine Exercise Name Lower Thoracic Rotation Side bilateral Reps/Minutes x10 ea Sidelying Exercises Open Book stretch Sidelying Exercise Name w/ towel roll under R scapula to maintain pain-free range Side bilateral Reps/Minutes 5 x 2-3 breaths. Sitting Exercises Trunk rotation Sitting Exercise Name added to HEP Standing Exercises Rhomboid doorway stretch Standing Exercise Name added to HEP as tolerated Reps/Minutes 1 x 10 sec Comments dc'd d/t R shoulder discomfort after ~10 sec Chin tucks Standing Exercise Name added to HEP Equipment Used w/towel roll Reps/Minutes 10x3SH Manual Therapy Treatment Soft Tissue Mobilization Upper Trap Body Location R UT, LS, Rhomboid, vin- scapular, c-spine, suboccipals , SOR, temples Mobilization Type Rolling,Strumming,Sustained Pressure,Trigger Point Release Intensity/Depth Moderate Body Position Supine Comments from ángel 7/10 to marilia freed 6 -6.5/10 Self-Care/Home Management Treatment Education Patient Education Home Exercise Program Other Education added to HEP: seated trunk rotation, chin tucks on wall, and rhomboid doorway stretch as tolerated - HO given. PT-OP-R Modalities Start: 09/18/21 13:45 Freq: Status: Active Protocol: Document 09/20/21 13:53 [facility] (Rec: 09/20/21 15:20 [facility] [id number]) Hot Pack/Cold Pack Treatment Cold Pack Location R napoleon, lumbar, cervical Patient Position Hooklying Treatment Duration (minutes) 10 Patient Tolerance Good Comments pillow support under R UE PT-OP-T Assessment and Plan Start: 08/13/21 17:30 Freq: Status: Active Protocol: Document 09/20/21 13:53 [facility] (Rec: 09/20/21 15:20 [facility] [id number]) Physical Therapy Assessment Goals Three Impairment Weakness in right shoulder MMT , especially IR (3+/5) and flex/abd (4-/5) Coil Maker Goal (LTG) Pt to demonstrate improve UE strength to at least 4/5 in order to demonstrate improved ability to use UEs to support herself while using her 4WW LTG Duration 11/11/21 Two Impairment Pt experiences increase shoulder pain lifting right arm >90? flex and abd Coil Maker Goal (LTG) Pt to increase pain-free R shoulder ROM to >140? flexion and abduction in order to improve ability to get down items from cabinets. LTG Duration 11/11/21 One Impairment Pt does not have an appropriate home exercise program Short Term Goal (STG) Pt to be independent and compliant with an appropriate HEP STG Duration 09/12/21 Assessment Summary Assessment Treatment focus today on manual therapy to decrease muscle tone and improve pain, gentle stretching and cervical strengthening. Pt's R shoulder pain improved from 7/ 10 to 6-6.5/10 after manual therapy this session. Pt tolerates gentle lower trunk and thoracic rotation and cervical extensor exercise, but had increase in shoulder symptoms after ~10 sec w/ rhomboid doorway stretch - added to HEP as tolerated and HO given. Physical Therapy Plan Next Visit Focus/Plan Next Note Type Treatment Note Next Visit Plan STM, strengthening, ROM
--- NOTE | 2022-02-18 15:35 | PT.OPDS ---
Current Diagnoses Stiffness of other specified joint, not elsewhere classified (09/20/21) Cervicalgia (09/20/21) Muscle weakness (generalized) (09/20/21) Paresthesia of skin (09/20/21) Visit Care Team Role Provider Type Sindhu Gonzalez PA-C Attending Provider Non-Staff Family Provider Primary Care Provider Referring Provider Specialty: Medical Address: [address] [place] [address], [phone] Email: Visit Number Visit Number 10 Discharge Summary PT-OP-B Current Condition Start: 08/13/21 17:30 Freq: Status: Active Protocol: Document 08/13/21 16:00 DCW (Rec: 08/13/21 17:43 DCW [id number]) Current Condition History of Current Condition Onset Date Long-standing history Current Complaints Neck pain/stiffness, radicular arm symptoms History of Current Condition Pt is a 31 year old female well known to this clinic presenting with a long- standing history of cervical pain and stiffness. Pt's case history is complicated by lumbar and thoracic back pain, lumbar surgery, POTS, Wilbur- Danlos Syndrome, as well as pt is currently being testing for multiple various neurological and autoimmune conditions which may help to explain some of her various symptoms. Today, pt is noting pain in her neck and shoulders , particularly in her right shoulder. Pain is caused by just existing, notes it is pretty much constant, however she can reproduce a worse shooting pain down her right arm if she turns her head too quickly. Pt also notes her POTS symptoms seem to be worsening, walks into the clinic using a 4WW, which is a relatively new addition for her, reports she has been falling and fatiguing very quickly with any activity, and she is working toward getting a wheelchair for when she has to go out on longer shopping trips. Pt recently received trigger point injection inher cervical spine, but notes that they haven't done a thing. Treatment Goals Patient/Caregiver Goals Either help loosen up cervical musculature and reduce pain, or participate in enough PT that she is able to get a cervical CT scan approved. PT-OP-C Subjective Start: 08/13/21 17:30 Freq: Status: Active Protocol: Document 09/20/21 13:53 NBM (Rec: 09/20/21 15:20 [facility] [id number]) OP-PT Subjective Patient Comments Patient Comments My right shoulder is a sharp 7/10 today. I think my shots wore off and my pain goes up in my neck to the back of my head. I have not been able to sleep. 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 PT-OP-K Range of Motion Start: 08/13/21 17:30 Freq: Status: Active Protocol: Document 08/13/21 16:00 DCW (Rec: 08/13/21 17:51 DCW [id number]) Cervical Spine Range of Motion Cervical Spine Active Degrees Testing Position Sitting Flexion 30 Extension 45 Rotation Left 38 Rotation Right 29 Lateral Flexion Left 35 Lateral Flexion Right 40 ROM Limitations Muscle Tone,Pain Comments Measured pain-free ROM Shoulder Goniometric Range of Motion Shoulder Right Active Shoulder ROM WFL Yes Testing Position Sitting Flexion 180 Abduction 180 External Rotation at 0 degrees Abduction 75 Comments Moves through full ROM, but pain increases significantly past 90? in both flexion and abduction Left Active Shoulder ROM WFL Yes Testing Position Sitting Flexion 180 Abduction 180 External Rotation at 0 degrees Abduction 75 PT-OP-L Special Tests Start: 08/13/21 17:30 Freq: Status: Active Protocol: Document 08/13/21 16:00 DCW (Rec: 08/13/21 17:51 DCW [id number]) Special Tests Cervical Spine Special Tests Slump Test Results Negative Foraminal Compression Test Results Discomfort Alar Ligament Test Results Negative PT-OP-M Strength Start: 08/13/21 17:30 Freq: Status: Active Protocol: Document 08/13/21 16:00 DCW (Rec: 08/13/21 17:51 DCW [id number]) Cervical Spine Strength Cervical Spine Manual Muscle Testing Comments Significant difficulty immediately upon head lift, but able to perform appropriate chin tuck Shoulder Strength Shoulder Manual Muscle Testing Right Flexion 4- Good- Abduction (C5) 4- Good- External Rotation 4 Good Internal Rotation 3+ Fair+ Left Flexion 4+ Good+ Abduction (C5) 4- Good- External Rotation 4+ Good+ Internal Rotation 4+ Good+ PT-OP-T Assessment and Plan Start: 08/13/21 17:30 Freq: Status: Active Protocol: Document 02/18/22 15:33 DCW (Rec: 02/18/22 15:35 DCW [id number]) Physical Therapy Assessment Assessment Summary Assessment Pt did not schedule any follow -up visits following last visit. Pt has now not been seen in more than four months, will be discharged from skilled therapy at this time. Will require new referral in order to return to skilled PT in the future. Physical Therapy Plan Discharge Physical Therapy Discharge Reasons No Longer Attending PT Next Visit Focus/Plan Next Note Type Discharge Summary
== END 2022-02-19 10:00 | disposition home or self-care (01) ==
LOC: PHYS 13:45
PROVIDERS: Family Provider Physician Assistant; PCP Physician Assistant; Referring Provider Physician Assistant; Visit Provider Physician Assistant
DX: M54.2 Cervicalgia (principal); R20.2 Paresthesia of skin; M25.69 Stiffness of other specified joint, not elsewhere classified; M62.81 Muscle weakness (generalized)
CPT/HCPCS: 97110; 97140; 97163

== ENCOUNTER 2021-12-03 14:30 | Outpatient (CLI) | payer OTHER, MEDICAID, SELFPAY ==
[2021-12-03] VITALS (8 sets, daily range): BP systolic 93–111; BP diastolic 51–65; PULSE 54–72; RESP 12–22; TEMP 36.4; O2SAT 99–100
--- NOTE | 2021-12-03 14:31 | DI.RAD.S_ITS ---
PROCEDURE: PAIN L/S TRANSFORAMINAL INJECT INDICATIONS: SPONDYLOSIS COMPARISON: None. FINDINGS: Fluoroscopic spot filming was performed to verify placement of spinal needles at the right L5-S1 level(s), as labeled on the films. Appropriate location(s) of the needle tip(s) was confirmed by injection of iodinated contrast. IMPRESSION: Fluoroscopy for pain management. Dictated by: Lizzette Santos M.D. on 12/03/2021 at 17:03 Approved by: Lizzette Santos M.D. on 12/03/2021 at 17:04
[2021-12-03] MEDS: MIDAZOLAM 2 MG/2 ML VIAL IV (15:02)
[2021-12-03] MEDS: IOPAMIDOL 15 ML VIAL 3 ML INJ (15:06)
[2021-12-03] MEDS: BETAMETHASONE 30 MG/5 ML MDV 6 MG INJ (15:07)
[2021-12-03] MEDS: BUPIVACAINE 0.25% (PF) VIAL 2 ML INJ (15:07)
[2021-12-03] MEDS: DEXAMETHASONE 10 MG/ML VIAL 20 MG INJ (15:07)
--- NOTE | 2021-12-03 15:17 | P.PCN_ITS ---
Date/Time/Diagnoses Date of procedure: 12/03/21 Time of procedure: 15:17 Pre-procedure diagnosis: FORAMINAL STENOSIS WITH LE SYMPTOMS Post-procedure diagnosis: same Procedure Notes Procedure: 1. FLUOROSCOPICALLY GUIDED CONTRAST CONTROLLED TRANSFORAMINAL EPIDURAL STEROID INJECTION - RIGHT L5/S1 TFESI Indications: Macrina is referred by Rito Gonzalez for treatment of Foraminal Stenosis with Right LE Symptoms Physician: Josemanuel Beasley Total Fluoroscopy time (seconds): 9 Total sedation minutes: 11 Complications: none Procedure in detail & Post-procedure care: FINDINGS Foraminal Nerve Root Compression secondary to disc disease and facet hypertrophy DESCRIPTION OF PROCEDURE Following review of allergy and review of potential side effects and complications, including, but not necessarily limited to, infection, allergic re action, local tissue breakdown, stroke, temporary or permanent nerve injury, paralysis, and possible , the patient indicated that the patient understood and agreed to proceed. An informed consent document was signed by the patient, witnessed by a nurse, and placed in the patient's chart. Additionally, other treatment options including medications, modalities, and physical therapy were reviewed with the patient. After review of previous anaesthesic history and IV conscious sedation the patient was deemed safe to proceed with today?s procedure with IV conscious sedation as ASA class II designation. Safety time-out was performed to confirm patient ID, procedure to be performed and site of procedure. IV sedation was accomplished with a combination of 2mg of Versed was administered by the RN after DO order, titrated to patient comfort during the course of the procedure while the patient remained responsive to all verbal commands. In the prone position following sterile prep and drape of the lumbar region, the right L5/S1 posterior neuroforamen was identified fluoroscopically. The skin was anesthetized via a 25-gauge 1.5-inch needle with 1% lidocaine solution. At this point, a 25-gauge 3.5-inch spinal needle was atraumatically introduced and advanced under fluoroscopic guidance through the posterior right L5/S1 neuroforamen to approximately the anterior aspect of the canal. Depth was confirmed on lateral view. Following negative aspiration, injection of approximately 1.5cc of Isovue 200 under live fluoroscopy in the AP view confirmed excellent flow along the nerve root, into the epidural space without vascular or intrathecal uptake observed Radiological data, including multiple fluoroscopic views of the lumbosacral spine, reveal a spinal needle at the right L5/S1 posterior neuroforamen. Subsequent views show flow of contrast material flowing superiorly and inferiorly along the nerve root confirming epidural flow. Subsequently, a test dose of 1.5 cc of 1% lidocaine solution was administered and patient was observed for two minutes for signs or symptoms of complications, including abdominal pain, shortness of breath, bilateral upper or lower extrem ity weakness, nausea and vomiting, prior to steroid injection. At this point, a total of 3cc or 20mg of dexamethasone and 6mg of betamethasone was injected without incident. The procedure tolerated the procedure well without signs or symptoms of complications prior to transfer to the recovery area continued monitoring without incident. The patient was then transferred to the recovery area where they were observed for an appropriate time after the injection. The patient reported a VAS score of 7 prior to the procedure and a post- procedure VAS of 0. POST OP INSTRUCTIONS The patient was provided a Pain Log to continue to record their response to the target-specific procedure prior to follow-up visit with their referring physician. Additionally, specific post-injection care instructions and a contact number to our office were provided if concerns arise regarding possible complications associated with the procedure are suspected.
== END 2021-12-03 15:35 | disposition home or self-care (01) ==
LOC: RAD 14:31
PROVIDERS: Family Provider Physician Assistant; PCP Physician Assistant; Referring Provider Physical Medicine & Rehabilitation; Visit Provider Physical Medicine & Rehabilitation
DX: M48.07 Spinal stenosis, lumbosacral region (principal); M51.17 Intervertebral disc disorders with radiculopathy, lumbosacral region
CPT/HCPCS: 64483; 99152; J0702; J1100; J2250; J3490

== ENCOUNTER 2022-04-04 15:00 | Emergency (ER) | payer OTHER, MEDICAID, SELFPAY ==
[2022-04-04] VITALS (17 sets, daily range): BP systolic 91–115; BP diastolic 52–72; PULSE 68–79; RESP 18; TEMP 37.2; O2SAT 98–100; BMI 25.8
[2022-04-04] MEDS: SODIUM CHLORIDE 0.9% 1,000 ML 1000 ML IV ×2 (15:38→16:29)
[2022-04-04] MEDS: ACETAMINOPHEN 325 MG TABLET 975 MG PO (15:39)
[2022-04-04 15:40] LABS: Add Manual Diff / Slide Review NO; Basophils Absolute Auto 0 /uL (0-100); Basophils Percent Auto 0.4 % (0-2); Eosinophils Absolute Auto 300 /uL (0-450); Eosinophils Percent Auto 3.4 % (2-4); Hematocrit 33.9 % (36-46); Hemoglobin 11.8 g/dL (12.0-16.0); Lymphocytes Absolute Auto 3200 /uL (1100-4500); Lymphocytes Percent Auto 30.9 % (25-40); Mean Corpuscular HGB Conc 34.8 % (30-36); Mean Corpuscular Hemoglobin 30.8 PG (26-34); Mean Corpuscular Volume 88.6 fL (80-100); Monocytes Absolute Auto 500 /uL (0-900); Monocytes Percent Auto 5.1 % (3-14); Neutrophils Absolute Auto 6200 /uL (1500-7000); Neutrophils Percent Auto 60.2 % (50-75); Platelet Count 282 X10^3/uL (150-400); Red Blood Cell Count 3.83 X10^6/uL (4.0-5.2); Red Cell Distribution Width 13.2 % (11.6-14.8); White Blood Cell Count 10.2 X10^3/uL (4.5-11.0)
[2022-04-04 15:53] LABS: Alanine Aminotransferase 19 IU/L (<35); Albumin Globulin Ratio 1.2 (1.0-2.8); Alkaline Phosphatase 53 U/L (38-126); Aspartate Aminotransferase 20 IU/L (14-36); BUN Creatinine Ratio 19.2 (6-22); Bilirubin Total 0.4 mg/dL (0.2-1.3); Blood Urea Nitrogen 10 mg/dL (7-17); Carbon Dioxide 20 mmol/L (22-32); Chloride 105 mmol/L (98-107); Estimated Glomerular Filt Rate > 60 mL/min (>60); Globulin 3.4 g/dL (1.7-4.1); Glucose 89 mg/dL (70-100); HEMOLYSIS < 15 (0-50); Lipase 88 U/L (23-300); Potassium 3.9 mmol/L (3.4-5.1); Sodium 135 mmol/L (137-145); Total Protein 7.4 g/dL (6.3-8.2)
[2022-04-04] MEDS: ONDANSETRON 4 MG/2 ML INJ IV (16:28)
[2022-04-04 17:14] LABS: Influenza A - CEPHEID Flu A NEGATIVE (NEGATIVE); Influenza B - CEPHEID Flu B NEGATIVE (NEGATIVE); Respiratory Syncytial Virus Negative (Negative)
--- NOTE | 2022-04-04 17:15 | ED.ABDPAIN ---
HPI - Abdominal Pain <Vanna Mata PA-C - Last Filed: 04/04/22 18:05> General Chief Complaint: Abdominal Pain Stated Complaint: Left side ABD pain Time Seen by Provider: 04/04/22 15:35 Source: patient and family Mode of arrival: Wheelchair History of Present Illness HPI narrative: 31-year-old female who is 10 weeks with ultrasound this morning that showed a healthy per patient as well as history of fibromyalgia and Wilbur-Danlos, chronic pain, L5-S1 nucleus pulposis herniation presents with concern for left-sided upper abdominal pain or rib pain. Patient states that her pain began about a week ago and initially was mild intermittent twinging sharp type pain. Then in the last 18 hours or so she is noticed the pain has become more intense and had some episodes where she had to lean forward and do ?labored breathing? because the pain was more intense. She says it has been intermittent and she feels it in the front at the bottom of her ribs on the left side it does not radiate to the side back or middle. She is unsure if movement or eating or drinking change the pain but she does not think so. She has been dealing with mild upper respiratory symptoms for about the past week other family members have been sick. Her symptoms have been mild. 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 Patient states that her nausea has been gradually increasing with her stage, yesterday and today it did seem to be a bit worse for her. She denies any low or right-sided abdominal pain, new back pain, diarrhea did have 1 episode of vomiting this morning consistent with her GERD/ nausea. Patient does say she has chronic GERD and does not feel like the pain she is experiencing is related to. She denies other complaints or concerns. Related Data Home Medications Medication Instructions Recorded Confirmed acetaminophen 325 mg capsule 650 mg PO Q6H PRN 10/24/21 02/27/22 (Tylenol) calcium-vitamin D3-vitamin K 500 tab PO DAILY required 10/24/21 02/27/22 mg-500 unit-40 mcg chewable tablet multivitamin 1 tab PO DAILY 10/24/21 02/27/22 methocarbamol 500 mg tablet 500 mg PO TID PRN 02/27/22 02/27/22 Allergies Allergy/AdvReac Type Severity Reaction Status Date / Time adhesive Allergy Intermediate Rash Verified 02/27/22 14:30 latex Allergy Unknown Verified 02/27/22 14:30 NSAIDS (Non-Steroidal AdvReac Mild Verified 02/27/22 14:30 Anti-Inflamma nickel AdvReac Rash Verified 02/27/22 14:30 Review of Systems <Vanna Mata PA-C - Last Filed: 04/04/22 18:05> Review of Systems Narrative: Unremarkable except as noted in the HPI Patient History <Vanna Mata PA-C - Last Filed: 04/04/22 18:05> Medical History Acute low back pain Cervical radiculopathy Wilbur-Danlos disease Herniated nucleus pulposus, L5-S1, right Lumbar post-laminectomy syndrome POTS (postural orthostatic tachycardia syndrome) Sacral dysfunction Surgical History Gastric bypass status for obesity History of lumbar surgery Family History Father Heart failure Mother Eden's disease Low BP Bursitis Grandmother Diabetes mellitus Congestive heart failure Cancer Social History Smoking Status: Never smoker Smoking Status: Never smoker Substance Use Type: does not use Exam <Vanna Mata PA-C - Last Filed: 04/04/22 18:05> Narrative Exam Narrative: GENERAL: 31 year old patient appears stated age. Overweight, Well-developed patient, in mild distress. HEAD: Atraumatic. Normocephalic. EYES: Pupils equal round and reactive. Extraocular motions intact. No scleral icterus. No injection or drainage. ENT: Nose without bleeding, purulent drainage. Airway patent. NECK: Trachea midline. Non tender CARDIOVASCULAR: Regular rate and rhythm without murmurs, gallops, or rubs. RESPIRATORY: Clear to auscultation. Breath sounds equal bilaterally. No wheezes, rales, or rhonchi. GASTROINTESTINAL: There is discomfort and increased pain with palpation over the costal margin anteriorly on the left side, there is also some pain with palpation just below the ribs in the left upper quadrant. Abdomen otherwise soft, non-tender, nondistended, neg Rovsing sign no McBurney's point tenderness, no right upper quadrant tenderness no CVA tenderness. EXTREMITIES: No edema or joint tenderness. BACK: Nontender without deformity or crepitance. No flank tenderness. NEURO: AOx3. SKIN: No rash or erythema of visible areas Initial Vital Signs Initial Vital Signs: Vital Signs Temperature 98.9 F 04/04/22 15:15 Pulse Rate 75 04/04/22 15:15 Respiratory Rate 18 04/04/22 15:15 Blood Pressure 115/72 04/04/22 15:15 Pulse Oximetry 98 04/04/22 15:15 Oxygen Delivery Method 04/04/22 15:15 <Sandi Rutherford DO - Last Filed: 04/05/22 08:44> Initial Vital Signs Initial Vital Signs: Vital Signs Temperature 98.9 F 04/04/22 15:15 Pulse Rate 75 04/04/22 15:15 Respiratory Rate 18 04/04/22 15:15 Blood Pressure 115/72 04/04/22 15:15 Pulse Oximetry 98 04/04/22 15:15 Oxygen Delivery Method 04/04/22 15:15 Course <Vanna Mata PA-C - Last Filed: 04/04/22 18:05> Orders Ordered: Discontinued Medications Acetaminophen (Acetaminophen 325 Mg Tablet) 975 mg PO NOW ONE Stop: 04/04/22 15:29 Last Admin: 04/04/22 15:39 Dose: 975 mg Documented By: MARIE Sodium Chloride (Normal Saline 0.9%) 1,000 mls @ 1,000 mls/hr IV BOLUS ONE Stop: 04/04/22 16:27 Last Infusion: 04/04/22 16:30 Dose: 0 mls/hr Documented By: Admin: 04/04/22 15:38 Dose: 1,000 mls/hr Documented By: MARIE Sodium Chloride (Normal Saline 0.9%) 1,000 mls @ 1,000 mls/hr IV BOLUS ONE Stop: 04/04/22 16:39 Last Infusion: 04/04/22 17:28 Dose: 0 mls/hr Documented By: Admin: 04/04/22 16:29 Dose: 1,000 mls/hr Documented By: DARIA Ondansetron HCl (Ondansetron 4 Mg Odt) 4 mg PO NOW PRN PRN Reason: Nausea And Vomiting Ondansetron HCl (Ondansetron 4 Mg/2 Ml Inj) 4 mg IV NOW PRN PRN Reason: Nausea And Vomiting Last Admin: 04/04/22 16:28 Dose: 4 mg Documented By: DARIA Vital Signs Vital signs: Vital Signs - 8 hr 04/04/22 15:15 04/04/22 16:31 04/04/22 16:25 Temperature 98.9 F Pulse Rate 75 71 Respiratory Rate 18 18 Blood Pressure 115/72 95/56 L 99/57 L Pulse Oximetry 98 100 Oxygen Delivery Method Room Air 04/04/22 16:30 04/04/22 16:35 04/04/22 16:40 Temperature Pulse Rate 68 73 77 Respiratory Rate Blood Pressure 95/56 L Pulse Oximetry 100 100 99 Oxygen Delivery Method Room Air Room Air 04/04/22 16:45 04/04/22 16:50 04/04/22 16:55 Temperature Pulse Rate 79 76 79 Respiratory Rate Blood Pressure Pulse Oximetry 100 100 100 Oxygen Delivery Method Room Air Room Air Room Air 04/04/22 17:00 04/04/22 17:05 04/04/22 17:07 Temperature Pulse Rate 72 75 Respiratory Rate Blood Pressure 97/52 L 99/58 L 99/58 L Pulse Oximetry 100 100 Oxygen Delivery Method Room Air Room Air 04/04/22 17:08 04/04/22 17:59 04/04/22 17:52 Temperature Pulse Rate 75 72 Respiratory Rate Blood Pressure Pulse Oximetry 100 100 99 Oxygen Delivery Method Room Air 04/04/22 17:53 04/04/22 17:54 Temperature Pulse Rate 78 Respiratory Rate Blood Pressure 91/55 L Pulse Oximetry 99 Oxygen Delivery Method <Sandi Rutherford, - Last Filed: 04/05/22 08:44> Orders Ordered: Discontinued Medications Acetaminophen (Acetaminophen 325 Mg Tablet) 975 mg PO NOW ONE Stop: 04/04/22 15:29 Last Admin: 04/04/22 15:39 Dose: 975 mg Documented By: MARIE Sodium Chloride (Normal Saline 0.9%) 1,000 mls @ 1,000 mls/hr IV BOLUS ONE Stop: 04/04/22 16:27 Last Infusion: 04/04/22 16:30 Dose: 0 mls/hr Documented By: Admin: 04/04/22 15:38 Dose: 1,000 mls/hr Documented By: MARIE Sodium Chloride (Normal Saline 0.9%) 1,000 mls @ 1,000 mls/hr IV BOLUS ONE Stop: 04/04/22 16:39 Last Infusion: 04/04/22 17:28 Dose: 0 mls/hr Documented By: Admin: 04/04/22 16:29 Dose: 1,000 mls/hr Documented By: DARIA Ondansetron HCl (Ondansetron 4 Mg Odt) 4 mg PO NOW PRN PRN Reason: Nausea And Vomiting Ondansetron HCl (Ondansetron 4 Mg/2 Ml Inj) 4 mg IV NOW PRN PRN Reason: Nausea And Vomiting Last Admin: 04/04/22 16:28 Dose: 4 mg Documented By: DARIA Vital Signs Vital signs: Vital Signs - 8 hr 04/04/22 15:15 04/04/22 16:31 04/04/22 16:25 Temperature 98.9 F Pulse Rate 75 71 Respiratory Rate 18 18 Blood Pressure 115/72 95/56 L 99/57 L Pulse Oximetry 98 100 Oxygen Delivery Method Room Air 04/04/22 16:30 04/04/22 16:35 04/04/22 16:40 Temperature Pulse Rate 68 73 77 Respiratory Rate Blood Pressure 95/56 L Pulse Oximetry 100 100 99 Oxygen Delivery Method Room Air Room Air 04/04/22 16:45 04/04/22 16:50 04/04/22 16:55 Temperature Pulse Rate 79 76 79 Respiratory Rate Blood Pressure Pulse Oximetry 100 100 100 Oxygen Delivery Method Room Air Room Air Room Air 04/04/22 17:00 04/04/22 17:05 04/04/22 17:07 Temperature Pulse Rate 72 75 Respiratory Rate Blood Pressure 97/52 L 99/58 L 99/58 L Pulse Oximetry 100 100 Oxygen Delivery Method Room Air Room Air 04/04/22 17:08 04/04/22 17:59 04/04/22 17:52 Temperature Pulse Rate 75 72 Respiratory Rate Blood Pressure Pulse Oximetry 100 100 99 Oxygen Delivery Method Room Air 04/04/22 17:53 04/04/22 17:54 Temperature Pulse Rate 78 Respiratory Rate Blood Pressure 91/55 L Pulse Oximetry 99 Oxygen Delivery Method MDM - Abdominal Pain <Vanna Mata PA-C - Last Filed: 04/04/22 18:05> Differential Diagnosis Differential diagnosis: Likely abdominal pain, pancreatitis and other (MSK pain) Medical Records Attestation: I reviewed the patient's medical records. Lab Data Attestation: I reviewed the patient's lab results. 04/04/22 15:31 04/04/22 15:31 Labs: Lab Results 04/04/22 04/04/22 04/04/22 Range/Units 15:31 15:31 16:31 WBC 10.2 (4.5-11.0) X10^3/uL RBC 3.83 L (4.0-5.2) X10^6/uL Hgb 11.8 L (12.0-16.0) g/dL Hct 33.9 L (36-46) % MCV 88.6 (80-100) fL MCH 30.8 (26-34) PG MCHC 34.8 (30-36) % RDW 13.2 (11.6-14.8) % Plt Count 282 (150-400) X10^3/uL Neut % (Auto) 60.2 (50-75) % Lymph % (Auto) 30.9 (25-40) % [place] % (Auto) 5.1 (3-14) % Eos % (Auto) 3.4 (2-4) % Baso % (Auto) 0.4 (0-2) % Neut # (Auto) 6200 (4400-3717) /uL Lymph # (Auto) 3200 (8641-8991) /uL [place] # (Auto) 500 (0-900) /uL Eos # (Auto) 300 (0-450) /uL Baso # (Auto) 0 (0-100) /uL Sodium 135 L (137-145) mmol/L Potassium 3.9 (3.4-5.1) mmol/L Chloride 105 (98-107) mmol/L Carbon Dioxide 20 L (22-32) mmol/L BUN 10 (7-17) mg/dL Creatinine 0.52 (0.52-1.04) mg/dL Estimated GFR > 60 (>60) mL/min BUN/Creatinine Ratio 19.2 (6-22) Glucose 89 (70-100) mg/dL Calcium 9.0 (8.4-10.2) mg/dL Total Bilirubin 0.4 (0.2-1.3) mg/dL AST 20 (14-36) IU/L ALT 19 (<35) IU/L Alkaline Phosphatase 53 (38-126) U/L Total Protein 7.4 (6.3-8.2) g/dL Albumin 4.0 (3.5-5.0) g/dL Globulin 3.4 (1.7-4.1) g/dL Albumin/Globulin Ratio 1.2 (1.0-2.8) Lipase 88 (23-300) U/L SARS-CoV-2 (PCR) Negative (Negative) Influenza A (RT-PCR) Flu a negative (NEGATIVE) Influenza B (RT-PCR) Flu b negative (NEGATIVE) RSV (PCR) Negative (Negative) Point of care testing: Point of Care Testing Test Results Positive Urine Dip Bedside Urine Glucose Negative Bedside Urine Bilirubin - Negative Bedside Urine Ketone - Negative Urine Specific [place] 1.030 Bedside Urine Occult Blood - Negative Bedside Urine pH 6.0 Bedside Urine Protein - Negative Bedside Urine Urobilinogen +/- 1mg Bedside Urine Nitrite - Negative Bedside Urine Leukocytes - Negative Esterase MDM Narrative Medical decision making narrative: 31-year-old female with history of Wilbur-Danlos, fibromyalgia, L5-S1 herniated nucleus polyposis and chronic pain who is 10 weeks presents with concern for left sided anterior rib pain/upper abdominal pain intermittent for the past week and worsened in the last day. Labs obtained today include urine dip which is unremarkable, CBC, CMP and lipase all of which are also unremarkable. Patient has not had any symptoms concerning for cardiac etiology, UTI her pain is not radiating and on exam suspicious that it may be musculoskeletal as she does have increased pain tenderness at the costal margin on the left side. Patient does endorse a history of GERD however does not feel like this pain is similar and does not seem to be worsened by eating drinking she is unsure if it is worsened by movements. Viral testing today as well for COVID flu and RSV as patient's has had upper respiratory infection that has been very mild over the past week and other family members have been sick with similar symptoms. This returns negative. Etiology of patient's pain is unclear, possibly pleuritic, and low suspicion for intra-abdominal process based on labs history, location of pain and exam. Patient is counseled to monitor for new or worsening symptoms continue with Tylenol for pain as needed and is comfortable going home with her to monitor at home. Patient does also receive fluids today in the emergency department. She endorses that her blood pressures are normally in the mid 90s they are in the mid 90s or above today in the ED for us. Patient is generally well-appearing nontoxic. Patient did have a ultrasound this morning which she says showed a viable normal , she has not had any low abdominal pain and no vaginal discharge or vaginal bleeding, no additional workup regarding patient's is done today in the emergency department. Return precautions provided, follow-up plan discussed, all questions answered. <Sandi Rutherford, - Last Filed: 04/05/22 08:44> Lab Data Labs: Lab Results 04/04/22 04/04/22 04/04/22 Range/Units 15:31 15:31 16:31 WBC 10.2 (4.5-11.0) X10^3/uL RBC 3.83 L (4.0-5.2) X10^6/uL Hgb 11.8 L (12.0-16.0) g/dL Hct 33.9 L (36-46) % MCV 88.6 (80-100) fL MCH 30.8 (26-34) PG MCHC 34.8 (30-36) % RDW 13.2 (11.6-14.8) % Plt Count 282 (150-400) X10^3/uL Neut % (Auto) 60.2 (50-75) % Lymph % (Auto) 30.9 (25-40) % [place] % (Auto) 5.1 (3-14) % Eos % (Auto) 3.4 (2-4) % Baso % (Auto) 0.4 (0-2) % Neut # (Auto) 6200 (0642-4191) /uL Lymph # (Auto) 3200 (9481-1742) /uL [place] # (Auto) 500 (0-900) /uL Eos # (Auto) 300 (0-450) /uL Baso # (Auto) 0 (0-100) /uL Sodium 135 L (137-145) mmol/L Potassium 3.9 (3.4-5.1) mmol/L Chloride 105 (98-107) mmol/L Carbon Dioxide 20 L (22-32) mmol/L BUN 10 (7-17) mg/dL Creatinine 0.52 (0.52-1.04) mg/dL Estimated GFR > 60 (>60) mL/min BUN/Creatinine Ratio 19.2 (6-22) Glucose 89 (70-100) mg/dL Calcium 9.0 (8.4-10.2) mg/dL Total Bilirubin 0.4 (0.2-1.3) mg/dL AST 20 (14-36) IU/L ALT 19 (<35) IU/L Alkaline Phosphatase 53 (38-126) U/L Total Protein 7.4 (6.3-8.2) g/dL Albumin 4.0 (3.5-5.0) g/dL Globulin 3.4 (1.7-4.1) g/dL Albumin/Globulin Ratio 1.2 (1.0-2.8) Lipase 88 (23-300) U/L SARS-CoV-2 (PCR) Negative (Negative) Influenza A (RT-PCR) Flu a negative (NEGATIVE) Influenza B (RT-PCR) Flu b negative (NEGATIVE) RSV (PCR) Negative (Negative) Point of care testing: Point of Care Testing Test Results Positive Urine Dip Bedside Urine Glucose Negative Bedside Urine Bilirubin - Negative Bedside Urine Ketone - Negative Urine Specific [place] 1.030 Bedside Urine Occult Blood - Negative Bedside Urine pH 6.0 Bedside Urine Protein - Negative Bedside Urine Urobilinogen +/- 1mg Bedside Urine Nitrite - Negative Bedside Urine Leukocytes - Negative Esterase Discharge Plan Departure Patient Disposition: Home Clinical Impression: Abdominal pain Activity Restrictions/Additional Instructions: Thank you for letting us be part of her care in the emergency department today. I am sorry that you are having pain. We do not have a clear answer for what is causing your pain but we have evaluated do including looking at labs for evaluation of your pancreas your complete blood count and metabolic panel as well as given some fluids today, we also tested you for some common respiratory viruses and this came back negative for COVID flu and RSV. Your urine dip today looked very good there is no evidence of urinary tract infection. Given your history there are a lot of potential causes for the pain that you were having however at this time feel fairly confident that this is not a life-threatening problem, however it is definitely important that you monitor for new or worsening symptoms at home over the next few days and do not hesitate to seek re-evaluation if you have concerns. We did not do further workup to evaluate your today as he already had an ultrasound earlier this morning as an outpatient. There is no evidence of an emergent or life threatening illness at this time, but follow up with your doctor in 1-2 days is recommended nonetheless to continue to rule out serious underlying causes of your symptoms. Please call the office for an appointment. Please return to the Emergency Department for any worsening or persistent symptoms. Please take medications as directed. Prescriptions: No Action multivitamin Tablet 1 tab PO DAILY calcium-vitamin D3-vitamin K 500-500-40 mg-unit-mcg tablet,chewable PO DAILY Label Comments: Gastric Bypass patient acetaminophen [Tylenol] 325 mg capsule 650 mg PO Q6H PRN methocarbamol 500 mg tablet 500 mg PO TID PRN Label Comments: TAKE 1/2 TO 1 TABLET BY MOUTH UP TO THREE TIMES DAILY NEEDED Referrals: Sindhu Gonzalez PA-C [Primary Care Provider] - Stand Alone Forms: Patient Portal/API <Sandi Rutherford DO - Last Filed: 04/05/22 08:44> Cosign ED Attending Margaretature Attestation: I was immediately available in the department for consultation. Documentation has been reviewed.
[2022-04-04 17:22] LABS: COVID-19 CEPHEID 4-PLEX PCR Negative (Negative)
== END 2022-04-04 18:00 | disposition home or self-care (01) ==
PROVIDERS: Emergency Medicine; Emergency Provider Student in an Organized Health Care Education/Training Program; Family Provider Physician Assistant; PCP Physician Assistant
DX: O26.91 Pregnancy related conditions, unspecified, first trimester (principal); R10.12 Left upper quadrant pain; Z3A.10 10 weeks gestation of pregnancy; Z20.822 Contact with and (suspected) exposure to COVID-19
CPT/HCPCS: 0241U; 36415; 80053; 81003; 81025; 83690; 85025; 96361; 96374; 99284; J2405

== ENCOUNTER 2022-12-16 09:24 | Emergency (ER) | payer OTHER, MEDICAID, SELFPAY ==
[2022-12-16] VITALS (8 sets, daily range): BP systolic 87–111; BP diastolic 53–69; PULSE 56–115; RESP 14; TEMP 36.9; O2SAT 97–99; BMI 34.9
--- NOTE | 2022-12-16 10:13 | ED.BACK ---
HPI - Back Pain/Injury General Chief Complaint: Back Pain/Injury Stated Complaint: extreme sciatica pain Time Seen by Provider: 12/16/22 09:25 Source: patient History of Present Illness HPI Narrative: 32yoF with reported PMH of POTS and Wilbur Danlos presents for right-sided sciatic back pain. Patient is 8 weeks , she states that ?life? exacerbates her sciatica. Took a Robaxin last night for pain. Denies bowel or bladder incontinence, denies saddle anesthesia, denies weakness in her legs. Unable to take p.o. NSAIDs due to history of gastric bypass surgery. She is her infant child Related Data Home Medications Medication Instructions Recorded Confirmed acetaminophen 325 mg capsule 650 mg PO Q6H PRN 10/24/21 06/16/22 (Tylenol) calcium-vitamin D3-vitamin K 500 tab PO DAILY required 10/24/21 06/16/22 mg-500 unit-40 mcg chewable tablet multivitamin 1 tab PO DAILY 10/24/21 06/16/22 methocarbamol 500 mg tablet 500 mg PO TID PRN 02/27/22 06/16/22 Previous Rx's Medication Instructions Recorded benzonatate 100 mg capsule 100 mg PO BID PRN cough #20 caps 06/16/22 fluticasone propionate 50 1 spray intranasal Q12H #16 grams 06/16/22 mcg/actuation nasal spray,suspension (Flonase Allergy Relief) methocarbamol 500 mg tablet 500 mg PO QID #30 tabs 12/16/22 methylprednisolone 4 mg tablets in See Rx Instructions PO .COMPLEX 12/16/22 a dose pack (Medrol (Karlo)) #21 ea Allergies Allergy/AdvReac Type Severity Reaction Status Date / Time adhesive Allergy Intermediate Rash Verified 12/16/22 09:48 latex Allergy Unknown Verified 12/16/22 09:48 NSAIDS (Non-Steroidal AdvReac Mild Verified 12/16/22 09:48 Anti-Inflamma nickel AdvReac Rash Verified 12/16/22 09:48 Review of Systems Review of Systems Narrative: Negative except as noted above. Patient History Medical History (Updated 12/16/22 @ 11:36 by Shannon Branch MD) Mother currently breast-feeding Sacral dysfunction Cervical radiculopathy Lumbar post-laminectomy syndrome Herniated nucleus pulposus, L5-S1, right Wilbur-Danlos disease POTS (postural orthostatic tachycardia syndrome) Acute low back pain Surgical History History of lumbar surgery Gastric bypass status for obesity Family History Father Heart failure Mother Eden's disease Low BP Bursitis Grandmother Diabetes mellitus Congestive heart failure Cancer Social History Smoking Status: Never smoker Smoking Status: Never smoker Substance Use Type: does not use Exam Initial Vital Signs Initial Vital Signs: Vital Signs Temperature 98.4 F 12/16/22 09:45 Pulse Rate 115 H 12/16/22 09:45 Respiratory Rate 14 12/16/22 09:45 Blood Pressure 103/63 12/16/22 09:45 Pulse Oximetry 99 12/16/22 09:45 Oxygen Delivery Method Room Air 12/16/22 09:45 Const: Awake, alert, no acute distress, nontoxic appearing Eyes: PERRL, EOMI, conjunctiva normal Cardiac: regular rate, regular rhythm RESP: unlabored, no wheezing GI: Atraumatic, soft, nontender MSK: Atraumatic, full range of motion, pulses equal Skin: Warm, Dry, intact, no rashes Neuro: AO x3, CN II-XII grossly intact, moves all extremities Course Course Course Narrative: Sciatic back pain, no midline tenderness, no signs or symptoms of cauda equina, no indication for advanced imaging at this time. Patient was given p.o. and IV medications with some improvement of her pain. Muscle relaxers and steroids sent to pharmacy. Orders Ordered: Discontinued Medications Dexamethasone (Dexamethasone 10 Mg/Ml Vial) 10 mg IV NOW ONE Stop: 12/16/22 09:52 Last Admin: 12/16/22 10:31 Dose: 10 mg Documented By: WANDA Acetaminophen (Ofirmev) 1,000 mg in 100 mls @ 400 mls/hr IV NOW ONE Stop: 12/16/22 10:05 Last Infusion: 12/16/22 11:11 Dose: Infused Documented By: Admin: 12/16/22 10:51 Dose: 400 mls/hr Documented By: ELVIS Sodium Chloride (Normal Saline 0.9%) 1,000 mls @ 1,000 mls/hr IV BOLUS ONE Stop: 12/16/22 12:37 Last Infusion: 12/16/22 12:14 Dose: Infused Documented By: Admin: 12/16/22 11:41 Dose: 1,000 mls/hr Documented By: ELVIS Ketorolac Tromethamine (Ketorolac 30 Mg/Ml Vial) 15 mg IV NOW ONE Stop: 12/16/22 09:52 Last Admin: 12/16/22 10:30 Dose: 15 mg Documented By: WANDA Lidocaine (Lidocaine Patch 1 Each Adh..Patch) 1 each TOP NOW ONE Stop: 12/16/22 09:52 Last Admin: 12/16/22 10:29 Dose: 1 each Documented By: WANDA Methocarbamol (Methocarbamol 500 Mg Tablet) 750 mg PO NOW ONE Stop: 12/16/22 09:52 Last Admin: 12/16/22 10:35 Dose: 750 mg Documented By: WANDA Vital Signs Vital signs: Vital Signs - 8 hr 12/16/22 09:45 12/16/22 10:54 12/16/22 10:55 Temperature 98.4 F Pulse Rate 115 H 67 Respiratory Rate 14 Blood Pressure 103/63 100/59 L Pulse Oximetry 99 99 Oxygen Delivery Method Room Air 12/16/22 10:55 12/16/22 11:36 12/16/22 11:37 Temperature Pulse Rate 67 67 65 Respiratory Rate Blood Pressure Pulse Oximetry 97 99 99 Oxygen Delivery Method 12/16/22 11:37 12/16/22 11:38 12/16/22 11:38 Temperature Pulse Rate 58 L Respiratory Rate Blood Pressure 87/53 L 111/69 Pulse Oximetry 99 Oxygen Delivery Method 12/16/22 11:45 12/16/22 12:00 Temperature Pulse Rate 56 L 61 Respiratory Rate 14 Blood Pressure Pulse Oximetry 99 99 Oxygen Delivery Method Room Air MDM - Back Pain/Injury Differential Diagnosis Differential diagnosis: Likely lumbar radiculopathy, sciatica and strain of lumbar region Discharge Plan Departure Patient Disposition: Home Clinical Impression: Acute back pain with sciatica Instructions: DI for Back Pain With Sciatica Prescriptions: New methocarbamol 500 mg tablet 500 mg PO QID Qty: 30 0RF methylprednisolone [Medrol (Karlo)] 4 mg tablets,dose pack See Rx Instructions .ROUTE .COMPLEX Qty: 21 0RF Rx Instructions: orally per package directions No Action benzonatate 100 mg capsule 100 mg PO BID PRN (Reason: cough) Qty: 20 0RF fluticasone propionate [Flonase Allergy Relief] 50 mcg/actuation spray,suspension 1 spray intranasal Q12H Qty: 16 0RF Rx Instructions: administer into each nostril multivitamin Tablet 1 tab PO DAILY calcium-vitamin D3-vitamin K 500-500-40 mg-unit-mcg tablet,chewable PO DAILY Patient Comments: Gastric Bypass patient acetaminophen [Tylenol] 325 mg capsule 650 mg PO Q6H PRN methocarbamol 500 mg tablet 500 mg PO TID PRN Patient Comments: TAKE 1/2 TO 1 TABLET BY MOUTH UP TO THREE TIMES DAILY NEEDED Referrals: Sindhu Gonzalez PA-C [Primary Care Provider] - Stand Alone Forms: Patient Portal/API
[2022-12-16] MEDS: LIDOCAINE PATCH 1 EACH ADH..PATCH TOP (10:29)
[2022-12-16] MEDS: KETOROLAC 30 MG/ML VIAL 15 MG IV (10:30)
[2022-12-16] MEDS: DEXAMETHASONE 10 MG/ML VIAL IV (10:31)
[2022-12-16] MEDS: methocarbamoL 500 MG TABLET 750 MG PO (10:35)
[2022-12-16] MEDS: ACETAMINOPHEN IV 1,000 MG/100 ML VIAL 400 MG IV (10:51)
[2022-12-16] MEDS: SODIUM CHLORIDE 0.9% 1,000 ML 1000 ML IV (11:41)
== END 2022-12-16 12:26 | disposition home or self-care (01) ==
PROVIDERS: Emergency Provider Emergency Medicine; Family Provider Physician Assistant; PCP Physician Assistant
DX: M54.41 Lumbago with sciatica, right side (principal)
CPT/HCPCS: 36415; 96365; 96375; 99284; J0131; J1100; J1885

== ENCOUNTER → 2023-03-11 14:27 | Outpatient (CLI) | payer OTHER, MEDICAID, SELFPAY ==
--- NOTE | 2023-03-11 14:29 | DI.RAD.S_ITS ---
PROCEDURE: XR SHOULDER RT MIN 2V INDICATIONS: Shoulder injury TECHNIQUE: 3 views of the shoulder were acquired. COMPARISON: None. FINDINGS: Bones: No acute fracture or dislocations. Or fracture of the distal 3rd of the clavicle noted. No suspicious bony lesions. Visualized ribs appear intact. Soft tissues: No suspicious soft tissue calcifications. IMPRESSION: Old clavicular fracture No acute findings Dictated by: Reuben Grayson M.D. on 03/11/2023 at 18:15 Approved by: Reuben Grayson M.D. on 03/11/2023 at 18:16
== END ==
PROVIDERS: Family Provider Physician Assistant; PCP Physician Assistant; Referring Provider Nurse Practitioner Family; Visit Provider Nurse Practitioner Family
DX: S49.91XA Unspecified injury of right shoulder and upper arm, initial encounter (principal); X58.XXXA Exposure to other specified factors, initial encounter
CPT/HCPCS: 73030

== ENCOUNTER 2023-06-30 14:23 | Outpatient (CLI) | payer OTHER, MEDICAID, SELFPAY ==
[2023-06-30] VITALS (8 sets, daily range): BP systolic 93–122; BP diastolic 59–81; PULSE 59–72; RESP 9–22; TEMP 36.3; O2SAT 97–100
--- NOTE | 2023-06-30 15:00 | DI.RAD.S_ITS ---
PROCEDURE: PAIN L/S TRANSFORAMINAL INJECT INDICATIONS: Right L4/5 TFESI COMPARISON: [facility], , PAIN L/S TRANSFORAMINAL INJECT, 12/03/2021, 15:06. FINDINGS: Fluoroscopic spot filming was performed to verify placement of spinal needles at the right L4-5 level(s), as labeled on the films. Appropriate location(s) of the needle tip(s) was confirmed by injection of iodinated contrast. IMPRESSION: Intra procedural examination demonstrating appropriate positions of the needles. Dictated by: Edward Rico M.D. on 06/30/2023 at 16:48 Approved by: Edward Rico M.D. on 06/30/2023 at 16:49
[2023-06-30] MEDS: MIDAZOLAM 2 MG/2 ML VIAL IV (15:29)
[2023-06-30] MEDS: BUPIVACAINE 0.25% (PF) VIAL 2 ML INJ (15:33)
[2023-06-30] MEDS: DEXAMETHASONE 10 MG/ML VIAL INJ (15:34)
[2023-06-30] MEDS: iopamidoL 15 ML VIAL 3 ML INJ (15:34)
[2023-06-30] MEDS: BETAMETHASONE 30 MG/5 ML MDV 6 MG INJ (15:34)
--- NOTE | 2023-06-30 15:43 | P.PCN_ITS ---
Date/Time/Diagnoses Date of procedure: 06/30/23 Time of procedure: 15:43 Pre-procedure diagnosis: 1. FORAMINAL STENOSIS WITH LE SYMPTOMS Post-procedure diagnosis: same Procedure Notes Procedure: 1. FLUOROSCOPICALLY GUIDED CONTRAST CONTROLLED TRANSFORAMINAL EPIDURAL STEROID INJECTION - RIGHT L4/5 TFESI Indications: Macrina is referred by BECKY Gonzalez for treatment of Foraminal Stenosis with Right LE Symptoms Physician: Josemanuel Beasley Total Fluoroscopy time (seconds): 8 Total sedation minutes: 10 Complications: none Procedure in detail & Post-procedure care: FINDINGS Foraminal Nerve Root Compression secondary to disc disease and facet hypertrophy DESCRIPTION OF PROCEDURE Following review of allergy and review of potential side effects and complications, including, but not necessarily limited to, infection, allergic reaction, local tissue breakdown, stroke, temporary or permanent nerve injury, paralysis, and possible , the patient indicated that the patient understood and agreed to proceed. An informed consent document was signed by the patient, witnessed by a nurse, and placed in the patient's chart. Additionally, other treatment options including medications, modalities, and physical therapy were reviewed with the patient. After review of previous anaesthesic history and IV conscious sedation the patient was deemed safe to proceed with today?s procedure with IV conscious sedation as ASA class II designation. Safety time-out was performed to confirm patient ID, procedure to be performed and site of procedure. IV sedation was accomplished with a combination of 2mg of Versed was administered by the RN after DO order, titrated to patient comfort during the course of the procedure while the patient remained responsive to all verbal commands In the prone position following sterile prep and drape of the lumbar region, the right L4/5 posterior neuroforamen was identified fluoroscopically. The skin was anesthetized via a 25-gauge 1.5-inch needle with 1% lidocaine solution. At this point, a 25-gauge 3.5-inch spinal needle was atraumatically introduced and advanced under fluoroscopic guidance through the posterior right L4/5 neuroforamen to approximately the anterior aspect of the canal. Depth was confirmed on lateral view. Following negative aspiration, injection of approximately 1.5cc of Isovue 200 under live fluoroscopy in the AP view co nfirmed excellent flow along the nerve root, into the epidural space without vascular or intrathecal uptake observed Radiological data, including multiple fluoroscopic views of the lumbosacral spin e, reveal a spinal needle at the right L4/5 posterior neuroforamen. Subsequent views show flow of contrast material flowing superiorly and inferiorly along the nerve root confirming epidural flow. Subsequently, a test dose of 1.5 cc of 1% lidocaine solution was administered and patient was observed for two minutes for signs or symptoms of complications, including abdominal pain, shortness of breath, bilateral upper or lower extremity weakness, nausea and vomiting, prior to steroid injection. At this point, a total of 2cc or 10mg of dexamethasone and 6mg of betamethasone was injected without incident. The procedure tolerated the procedure well without signs or symptoms of complications prior to transfer to the recovery area continued monitoring without incident. The patient was then transferred to the recovery area where they were observed for an appropriate time after the injection. The patient reported a VAS score of 7 prior to the procedure and a post- procedure VAS of 0. POST OP INSTRUCTIONS The patient was provided a Pain Log to continue to record their response to the target-specific procedure prior to follow-up visit with their referring physician. Additionally, specific post-injection care instructions and a contact number to our office were provided if concerns arise regarding possible complications associated with the procedure are suspected.
== END 2023-06-30 16:05 | disposition home or self-care (01) ==
LOC: RAD 14:24
PROVIDERS: Family Provider Physician Assistant; PCP Physician Assistant; Referring Provider Physical Medicine & Rehabilitation; Visit Provider Physical Medicine & Rehabilitation
DX: M48.061 Spinal stenosis, lumbar region without neurogenic claudication (principal); M51.16 Intervertebral disc disorders with radiculopathy, lumbar region; M47.26 Other spondylosis with radiculopathy, lumbar region
CPT/HCPCS: 64483; 99152; J0702; J1100; J2250; J3490